=== PATIENT | female | born 1950 | race Caucasian/White ===

== ENCOUNTER 2017-12-16 19:54 | Emergency (ER) | payer MEDICARE, OTHER ==
[2017-12-16] MEDS ORDERED: ALBUTEROL NEBULIZED 2.5 MG/3 ML INHALATION STA (19:56)
[2017-12-16] MEDS ORDERED: methylPREDNISolone SOD SUCCI 125 MG/2 ML VIAL IV STA (19:56)
[2017-12-16] MEDS ORDERED: IPRATROPIUM 0.5 MG/2.5 ML NEBU INHALATION STA (19:56)
[2017-12-16 20:37] LABS: D-Dimer 0.59 mg/L FEU (<0.60)
[2017-12-16 20:38] VITALS: RESP 18
[2017-12-16 20:39] LABS: ALT 35 U/L (9-52); AST 31 U/L (14-36); Albumin 4.1 g/dL (3.5-5.0); Alkaline Phosphatase 120 U/L (38-126); Anion Gap 13 mmol/L; Blood Urea Nitrogen 14 mg/dL (7-17); Calcium 9.3 mg/dL (8.4-10.2); Carbon Dioxide 23 mmol/L (22-30); Chloride 106 mmol/L (98-107); Glucose 119 mg/dL (74-99); Magnesium 1.9 mg/dL (1.6-2.3); Potassium 4.2 mmol/L (3.5-5.1); Sodium 142 mmol/L (137-145); Total Bilirubin 0.2 mg/dL (0.2-1.3); Total Protein 7.2 g/dL (6.3-8.2)
[2017-12-16 20:40] LABS: Basophils # (A) 0.1 k/uL (0-0.2); Basophils % (A) 1 %; Eosinophils # (A) 0.4 k/uL (0-0.7); Eosinophils % (A) 3 %; HCT 42.2 % (34.0-46.0); Lymphocytes % (A) 41 %; MCH 31.2 pg (25.0-35.0); MCHC 33.2 g/dL (31.0-37.0); Mean Platelet Volume 7.2; Monocytes # (A) 0.7 k/uL (0-1.0); Monocytes % (A) 5 %; Neutrophils # (A) 6.1 k/uL (1.3-7.7); Neutrophils % (A) 47 %; Platelet Count 367 k/uL (150-450); RBC 4.49 m/uL (3.80-5.40); RDW 13.1 % (11.5-15.5)
--- NOTE | 2017-12-16 20:40 | ED ---
General Adult HPI - General Chief complaint: Shortness of Breath Stated complaint: DAVID Time Seen by Provider: 12/16/17 19:55 Source: patient, EMS, RN notes reviewed Mode of arrival: EMS Limitations: no limitations - History of Present Illness Initial comments: 66-year-old female presents for evaluation of dyspnea. Patient has history of COPD, she takes nebulized albuterol twice daily. States she missed her normal evening dose, began to feel very short of breath and called EMS. Patient has additional past medical history of CAD status post CABG. Denies any chest pain with her dyspnea. Patient's symptoms progressed rapidly. No history DVT or PE. Patient's breathing has improved with DuoNeb given by EMS during transport. Denies fever but states she's had some chills. States she has a baseline cough which is sometimes productive, this is unchanged. No abdominal pain nausea vomiting. - Related Data Home Medications Medication Instructions Recorded Confirmed Atenolol [Tenormin] 50 mg PO QAM 04/24/15 12/16/17 Budesonide/Formoterol Fumarate 1 - 2 puff INHALATION RT-BID PRN 12/16/17 [Symbicort 160-4.5 Mcg Inhaler] FLUoxetine HCL [PROzac] 40 mg PO DAILY 12/16/17 12/16/17 Ipratropium-Albuterol Nebulize 3 ml INHALATION RT-BID 12/16/17 12/16/17 [Duoneb 0.5 mg-3 mg/3 ml Soln] Levothyroxine Sodium [Synthroid] 125 mcg PO DAILY 12/16/17 12/16/17 Umeclidinium [place] [Incruse 1 puff INHALATION RT-DAILY 12/16/17 12/16/17 Ellipta] Previous Rx's Medication Instructions Recorded Azithromycin [Zithromax Z-pack] 0 mg PO DIRECTED #6 tab 12/16/17 predniSONE 50 mg PO DAILY #5 tab 12/16/17 Allergies Allergy/AdvReac Type Severity Reaction Status Date / Time No Known Allergies Allergy Verified 12/16/17 21:00 Review of Systems ROS Statement: Those systems with pertinent positive or pertinent negative responses have been documented in the HPI. ROS Other: All systems not noted in ROS Statement are negative. Past Medical History Past Medical History: Asthma, GERD/Reflux, Hyperlipidemia, Hypertension, Myocardial Infarction ([place]), Sleep Apnea/CPAP/BIPAP, Thyroid Disorder Additional Past Medical History / Comment(s): [place] X 3. NO TX FOR SLEEP APNEA. KIDNEY STONES. Last Myocardial Infarction Date:: 1997 History of Any Multi-Drug Resistant Organisms: None Reported Past Surgical History: Cholecystectomy, Coronary Bypass/CABG, Heart Catheterization, Hysterectomy Additional Past Surgical History / Comment(s): COLONOSCOPY. EGD. Past Anesthesia/Blood Transfusion Reactions: No Reported Reaction Past Psychological History: Anxiety Smoking Status: Current every day smoker Past Alcohol Use History: Rare Past Drug Use History: None Reported - Past Family History Mother Family Medical History: Deep Vein Thrombosis (DVT), Myocardial Infarction ([place]) Father Family Medical History: Myocardial Infarction ([place]) General Exam Limitations: no limitations General appearance: alert, in no apparent distress Head exam: Present: atraumatic, normocephalic Eye exam: Present: normal appearance, PERRL ENT exam: Present: normal exam Neck exam: Present: normal inspection. Absent: tenderness, meningismus Respiratory exam: Present: respiratory distress (mild), wheezes, prolonged expiratory. Absent: rales Cardiovascular Exam: Present: regular rate, normal rhythm GI/Abdominal exam: Present: soft. Absent: distended, tenderness External exam: Present: normal external exam Extremities exam: Present: normal inspection, normal capillary refill. Absent: pedal edema Back exam: Present: normal inspection. Absent: full ROM, tenderness Neurological exam: Present: alert, oriented X3, CN II-XII intact. Absent: motor sensory deficit Psychiatric exam: Present: normal affect, normal mood Skin exam: Present: warm, dry, intact. Absent: cyanosis, diaphoretic Course Vital Signs 12/16/17 12/16/17 12/16/17 19:55 20:10 20:37 Temperature 98.2 F Pulse Rate 98 89 Respiratory 20 20 18 Rate Blood Pressure 129/82 O2 Sat by Pulse 99 Oximetry 12/16/17 12/16/17 21:07 21:17 Temperature Pulse Rate 91 99 Respiratory 18 18 Rate Blood Pressure 129/87 O2 Sat by Pulse 98 Oximetry - Reevaluation(s) Reevaluation #1: 12/16/17 21:31 On reevaluation, has improved aeration, she has persistent wheezing throughout. EKG Findings - EKG Comments: EKG Findings:: EKG shows sinus rhythm at rate of 93, GA interval 18, QRS duration 76, QTC 455, there is no definitive signs of ischemia although there is a great deal of artifact. Medical Decision Making - Medical Decision Making 66-year-old female history COPD presenting with cough and dyspnea. Patient's exam consistent with COPD, wheezing throughout with prolonged expiratory phase. Patient receives DuoNeb by EMS, albuterol and Atrovent in the emergency department on reevaluation her breathing has improved, she has continued wheezing. She is given Solu-Medrol and started on prednisone. Laboratory studies revealed mild elevated white blood cell count 13.0, hemoglobin 14.0 which is normal d-dimer is negative troponin negative electrolytes within normal limits chest x-ray negative for focal pneumonia. Patient is encouraged to stay for observation, she declines, she wishes to go home. She will take her nebulized albuterol at home. She will return with any worsening dyspnea or development of chest pain. She is prescribed prednisone and azithromycin for COPD exacerbation. She is also given pulmonology follow-up. Return to emergency department with worsening symptoms. - Lab Data Result diagrams: 12/16/17 20:05 12/16/17 20:05 Lab Results 12/16/17 12/16/17 12/16/17 Range/Units 20:05 20:05 20:05 WBC 13.0 H (3.8-10.6) k/uL RBC 4.49 (3.80-5.40) m/uL Hgb 14.0 (11.4-16.0) gm/dL Hct 42.2 (34.0-46.0) % MCV 94.0 (80.0-100.0) fL MCH 31.2 (25.0-35.0) pg MCHC 33.2 (31.0-37.0) g/dL RDW 13.1 (11.5-15.5) % Plt Count 367 (150-450) k/uL Neutrophils % 47 % Lymphocytes % 41 % Monocytes % 5 % Eosinophils % 3 % Basophils % 1 % Neutrophils # 6.1 (1.3-7.7) k/uL Lymphocytes # 5.3 H (1.0-4.8) k/uL Monocytes # 0.7 (0-1.0) k/uL Eosinophils # 0.4 (0-0.7) k/uL Basophils # 0.1 (0-0.2) k/uL Polychromasia Present PT (9.0-12.0) sec INR (<1.2) APTT (22.0-30.0) sec D-Dimer (<0.60) mg/L FEU Sodium 142 (137-145) mmol/L Potassium 4.2 (3.5-5.1) mmol/L Chloride 106 (98-107) mmol/L Carbon Dioxide 23 (22-30) mmol/L Anion Gap 13 mmol/L BUN 14 (7-17) mg/dL Creatinine 0.70 (0.52-1.04) mg/dL Est GFR (MDRD) Af Amer >60 (>60 ml/min/1.73 sqM) Est GFR (MDRD) Non-Af >60 (>60 ml/min/1.73 sqM) Glucose 119 H (74-99) mg/dL Plasma Lactic Acid Justus (0.7-2.0) mmol/L Calcium 9.3 (8.4-10.2) mg/dL Magnesium 1.9 (1.6-2.3) mg/dL Total Bilirubin 0.2 (0.2-1.3) mg/dL AST 31 (14-36) U/L ALT 35 (9-52) U/L Alkaline Phosphatase 120 (38-126) U/L Total Creatine Kinase 85 (30-135) U/L CK-MB (CK-2) 0.7 (0.0-2.4) ng/mL CK-MB (CK-2) Rel Index 0.8 Troponin I <0.012 (0.000-0.034) ng/mL Total Protein 7.2 (6.3-8.2) g/dL Albumin 4.1 (3.5-5.0) g/dL 12/16/17 12/16/17 Range/Units 20:05 20:20 WBC (3.8-10.6) k/uL RBC (3.80-5.40) m/uL Hgb (11.4-16.0) gm/dL Hct (34.0-46.0) % MCV (80.0-100.0) fL MCH (25.0-35.0) pg MCHC (31.0-37.0) g/dL RDW (11.5-15.5) % Plt Count (150-450) k/uL Neutrophils % % Lymphocytes % % Monocytes % % Eosinophils % % Basophils % % Neutrophils # (1.3-7.7) k/uL Lymphocytes # (1.0-4.8) k/uL Monocytes # (0-1.0) k/uL Eosinophils # (0-0.7) k/uL Basophils # (0-0.2) k/uL Polychromasia PT 9.6 (9.0-12.0) sec INR 1.0 (<1.2) APTT 23.4 (22.0-30.0) sec D-Dimer 0.59 (<0.60) mg/L FEU Sodium (137-145) mmol/L Potassium (3.5-5.1) mmol/L Chloride (98-107) mmol/L Carbon Dioxide (22-30) mmol/L Anion Gap mmol/L BUN (7-17) mg/dL Creatinine (0.52-1.04) mg/dL Est GFR (MDRD) Af Amer (>60 ml/min/1.73 sqM) Est GFR (MDRD) Non-Af (>60 ml/min/1.73 sqM) Glucose (74-99) mg/dL Plasma Lactic Acid Justus 1.6 (0.7-2.0) mmol/L Calcium (8.4-10.2) mg/dL Magnesium (1.6-2.3) mg/dL Total Bilirubin (0.2-1.3) mg/dL AST (14-36) U/L ALT (9-52) U/L Alkaline Phosphatase (38-126) U/L Total Creatine Kinase (30-135) U/L CK-MB (CK-2) (0.0-2.4) ng/mL CK-MB (CK-2) Rel Index Troponin I (0.000-0.034) ng/mL Total Protein (6.3-8.2) g/dL Albumin (3.5-5.0) g/dL Critical Care Time Critical Care Time: Yes Total Critical Care Time: 35 Disposition Clinical Impression: Acute exacerbation of chronic obstructive airways disease Disposition: HOME SELF-CARE Condition: Fair Instructions: COPD (Chronic Obstructive Pulmonary Disease) (ED) Additional Instructions: Please follow up with primary care physician, return with any worsening or changing symptoms. Prescriptions: Azithromycin [Zithromax Z-pack] 0 mg PO DIRECTED #6 tab predniSONE 50 mg PO DAILY #5 tab Referrals: Patricia Toribio DO [Primary Care Provider] - 1-2 days Dexter Calles MD [STAFF PHYSICIAN] - 1-2 days Time of Disposition: 21:33
[2017-12-16 20:41] LABS: Partial Thromboplastin Time 23.4 sec (22.0-30.0)
--- NOTE | 2017-12-16 20:44 | XR ---
EXAMINATION TYPE: XR chest 2V DATE OF EXAM: 12/16/2017 COMPARISON: NONE HISTORY: Short of breath TECHNIQUE: Frontal and lateral views of the chest are obtained. FINDINGS: There is no heart failure nor confluent pneumonic infiltrate. There are sternal wires. The re are chest leads. Costophrenic angles are clear. Bony thorax is intact. IMPRESSION: No active cardiopulmonary disease.
[2017-12-16 20:45] LABS: Creatine Kinase 85 U/L (30-135); Prothrombin Time 9.6 sec (9.0-12.0)
[2017-12-16 20:56] LABS: Creatine Kinase MB 0.7 ng/mL (0.0-2.4); Troponin I <0.012 ng/mL (0.000-0.034)
[2017-12-16 21:05] LABS: Lymphocytes # (A) 5.3 k/uL (1.0-4.8)
[2017-12-16 21:17] LABS: Polychromasia Present
[2017-12-16 21:50] VITALS: BP 138/74; PULSE 98; TEMP 97.4
== END 2017-12-16 21:52 | disposition home or self-care (01) ==
LOC: EC 19:54
DX: J44.1 Chronic obstructive pulmonary disease with (acute) exacerbation (principal); I10 Essential (primary) hypertension; I25.2 Old myocardial infarction; E07.9 Disorder of thyroid, unspecified; F17.200 Nicotine dependence, unspecified, uncomplicated; G47.30 Sleep apnea, unspecified; Z99.89 Dependence on other enabling machines and devices; Z95.1 Presence of aortocoronary bypass graft; Z95.5 Presence of coronary angioplasty implant and graft; Z79.899 Other long term (current) drug therapy
CPT/HCPCS: 99291 ×2; 96374 ×2; 36415; 94640; 93005; 85379; 80053; 82550; 82553; 83605; 83735; 84484; 85025; 85610; 85730; 87040; 71046; J2930

== ENCOUNTER 2018-02-26 19:11 | Inpatient (IN) | payer MEDICARE, OTHER ==
[2018-02-26] MEDS ORDERED: HEPARIN SODIUM,PORCINE 5,000 UNIT/ML 1 ML VIAL IV PRN (19:19)
[2018-02-26] MEDS ORDERED: NITROGLYCERIN-D5W PMX 50 MG in DEXTROSE/WATER 1 250ML.BAG IV ONE (19:20)
[2018-02-26] MEDS ORDERED: MORPHINE SULF 5MG/10ML VL ONE (19:24)
[2018-02-26] MEDS ORDERED: MORPHINE SULFATE/PF 10MG/10ML VL IV STA (19:31)
[2018-02-26] MEDS ORDERED: NALOXONE 0.4 MG/ML 1 ML VIAL IV PRN (19:36)
--- NOTE | 2018-02-26 19:46 | ED ---
General Adult HPI - General Chief complaint: Chest Pain Stated complaint: Chest Pain Time Seen by Provider: 02/26/18 19:16 Source: patient, EMS Mode of arrival: EMS Limitations: no limitations - History of Present Illness Initial comments: 67-year-old female presenting as a transfer from outside hospital with concern for non-ST segment elevated NM. Patient is having anterior chest pressure with nausea vomiting and diaphoresis. She does have history of open-heart surgery status post CABG approximately 20 years ago. History of COPD. Currently not on any blood thinners. Patient was transferred with nitroglycerin and heparin infusion, she received aspirin prior to transfer. Case was discussed with Dr. Perkins prior to transfer, he would like the patient evaluated emergency department for concern of progression of ischemic changes as well as ongoing pain. Patient is having 4 out of 10 chest pain at the time my evaluation. - Related Data Home Medications Medication Instructions Recorded Confirmed Atenolol [Tenormin] 50 mg PO DAILY 04/24/15 02/26/18 Levothyroxine Sodium [Synthroid] 125 mcg PO DAILY 12/16/17 02/26/18 Umeclidinium [place] [Incruse 1 puff INHALATION RT-DAILY 12/16/17 02/26/18 Ellipta] Albuterol Inhaler [Ventolin Hfa 1 - 2 puff INHALATION RT-Q6H PRN 02/26/18 Inhaler] FLUoxetine HCL [PROzac] 20 mg PO DAILY 02/26/18 02/26/18 Allergies Allergy/AdvReac Type Severity Reaction Status Date / Time No Known Allergies Allergy Verified 02/26/18 19:33 Review of Systems ROS Statement: Those systems with pertinent positive or pertinent negative responses have been documented in the HPI. ROS Other: All systems not noted in ROS Statement are negative. Past Medical History Past Medical History: Asthma, GERD/Reflux, Hyperlipidemia, Hypertension, Myocardial Infarction ([place]), Sleep Apnea/CPAP/BIPAP, Thyroid Disorder Additional Past Medical History / Comment(s): [place] X 3. NO TX FOR SLEEP APNEA. KIDNEY STONES. Last Myocardial Infarction Date:: 1997 History of Any Multi-Drug Resistant Organisms: None Reported Past Surgical History: Cholecystectomy, Coronary Bypass/CABG, Heart Catheterization, Hysterectomy Additional Past Surgical History / Comment(s): COLONOSCOPY. EGD. Past Anesthesia/Blood Transfusion Reactions: No Reported Reaction Past Psychological History: Anxiety Smoking Status: Current every day smoker Past Alcohol Use History: Rare Past Drug Use History: None Reported - Past Family History Mother Family Medical History: Deep Vein Thrombosis (DVT), Myocardial Infarction ([place]) Father Family Medical History: Myocardial Infarction ([place]) General Exam Limitations: no limitations General appearance: alert, in distress Head exam: Present: atraumatic, normocephalic Eye exam: Present: normal appearance, PERRL, EOMI ENT exam: Present: normal exam Neck exam: Present: normal inspection. Absent: tenderness, meningismus Respiratory exam: Present: rales. Absent: respiratory distress Cardiovascular Exam: Present: normal rhythm, tachycardia GI/Abdominal exam: Present: soft. Absent: distended, tenderness Extremities exam: Present: normal inspection, normal capillary refill, other ( Distal pulses intact). Absent: pedal edema Neurological exam: Present: alert, oriented X3 Psychiatric exam: Present: normal affect, normal mood Skin exam: Present: warm, diaphoretic Course Vital Signs 02/26/18 19:20 Temperature 98.3 F Pulse Rate 107 H Respiratory 20 Rate Blood Pressure 162/99 O2 Sat by Pulse 86 L Oximetry EKG Findings - EKG Comments: EKG Findings:: EKG obtained at 1915, sinus tachycardia, possible left atrial enlargement, rate of 113, [place] interval 120, QRS duration 80, QTC 488, there is depression in 3 and aVF as well as lead V3. Medical Decision Making - Medical Decision Making 67 yo female presenting with non-ST segment elevated NM. Repeat laboratory studies will be obtained. EKG does show ST segment depression. Patient will be continued on heparin and nitroglycerin. Case discussed with Dr. Perkins, given the ongoing pain, patient will be taken to the [facility] for angiography. All repeat laboratory studies are pending CT angiography report reviewed from [facility], no dissection or aneurysm. Diagnosis: NSTEMI Critical Care Time Critical Care Time: Yes Total Critical Care Time: 35 Disposition Clinical Impression: NSTEMI (non-ST elevated myocardial infarction) Disposition: ADMITTED IP TO THIS [facility] Condition: Serious Referrals: Patricia Toribio DO [Primary Care Provider] - 1-2 days Decision to Admit Reason: Admit from EC Decision Date: 02/26/18 Decision Time: 19:46
[2018-02-26 20:09] LABS: Basophils # (A) 0.1 k/uL (0-0.2); Basophils % (A) 1 %; Eosinophils # (A) 0.1 k/uL (0-0.7); Eosinophils % (A) 1 %; HCT 45.3 % (34.0-46.0); HGB 14.6 gm/dL (11.4-16.0); Lymphocytes # (A) 3.9 k/uL (1.0-4.8); Lymphocytes % (A) 18 %; MCH 29.2 pg (25.0-35.0); MCHC 32.3 g/dL (31.0-37.0); MCV 90.3 fL (80.0-100.0); Mean Platelet Volume 8.5; Monocytes # (A) 0.6 k/uL (0-1.0); Monocytes % (A) 3 %; Neutrophils # (A) 17.3 k/uL (1.3-7.7); Neutrophils % (A) 78 %; Platelet Count 451 k/uL (150-450); RBC 5.02 m/uL (3.80-5.40); RDW 13.7 % (11.5-15.5); WBC 22.1 k/uL (3.8-10.6)
[2018-02-26 20:25] LABS: ALT 105 U/L (9-52); AST 102 U/L (14-36); Albumin 4.3 g/dL (3.5-5.0); Alkaline Phosphatase 194 U/L (38-126); Anion Gap 20 mmol/L; Calcium 9.2 mg/dL (8.4-10.2); Carbon Dioxide 19 mmol/L (22-30); Chloride 105 mmol/L (98-107); Glucose 214 mg/dL (74-99); Magnesium 1.8 mg/dL (1.6-2.3); Potassium 4.2 mmol/L (3.5-5.1); Sodium 144 mmol/L (137-145); Total Bilirubin 0.4 mg/dL (0.2-1.3); Total Protein 7.7 g/dL (6.3-8.2)
[2018-02-26 20:26] LABS: Blood Urea Nitrogen 13 mg/dL (7-17)
[2018-02-26] MEDS ORDERED: LIDOCAINE 2% INJ 20 MG/ML (20 ML MDV) ONE (20:27)
[2018-02-26 20:31] LABS: INR 1.1 (<1.2); Prothrombin Time 10.4 sec (9.0-12.0)
[2018-02-26] MEDS ORDERED: SODIUM CHLORIDE 0.9% 500 ML IV ONE (20:40)
[2018-02-26] MEDS: HEPARIN SOD,PORK IN 0.45% NACL 25,000 UNIT in 0.45% NACL 1 500ML.BAG IV SCH (20:42)
[2018-02-26 20:45] LABS: Partial Thromboplastin Time 103.6 sec (22.0-30.0)
[2018-02-26 20:46] LABS: Creatine Kinase MB 23.7 ng/mL (0.0-2.4); Troponin I 2.22 ng/mL (0.000-0.034)
[2018-02-26] MEDS ORDERED: MIDAZOLAM 2 MG/2 ML VIAL ONE (20:47)
[2018-02-26] MEDS ORDERED: MIDAZOLAM 2 MG/2 ML VIAL IV ONE (20:51)
[2018-02-26] MEDS ORDERED: LIDOCAINE 2% INJ 20 MG/ML SQ ONE (20:51)
[2018-02-26] MEDS ORDERED: BIVALIRUDIN BOLUS 250 MG/50 ML IV ONE ×2 (21:20→21:25)
[2018-02-26] MEDS ORDERED: BIVALIRUDIN 250 MG in SODIUM CHLORIDE 0.9% 50 ML IV ONE ×4 (21:26)
[2018-02-26] MEDS ORDERED: CLOPIDOGREL 75 MG TAB ONE (21:27)
[2018-02-26] MEDS ORDERED: METOPROLOL TARTRATE 5 MG/5 ML VIAL IVP ONE ×2 (21:27→21:30)
[2018-02-26] MEDS ORDERED: CLOPIDOGREL 75 MG TAB PO ONE (21:39)
[2018-02-26] MEDS: NITROGLYCERIN 1000MCG/10ML SYRINGE INTRACORON ONE ×3 (21:52→22:09)
[2018-02-26] MEDS: niCARdipine Syringe (1,000 mcg/10 mL) INTRACORON ONE ×2 (21:53→21:57)
[2018-02-26] MEDS ORDERED: RX INFO: IV CONTRAST WAS GIVEN 1 EACH MISC MISCELLANE PRN (22:24)
[2018-02-26] MEDS ORDERED: ZOLPIDEM 5 MG TAB PO PRN (22:24)
[2018-02-26] MEDS ORDERED: ATROPINE SULFATE 0.1 MG/ML 10ML SYRINGE IV PRN (22:24)
[2018-02-26] MEDS ORDERED: SODIUM CHLORIDE 0.9% 1,000 ML IV SCH (22:30)
--- NOTE | 2018-02-26 22:32 | P.CRDCN ---
History of Present Illness Consult date: 02/26/18 Chief complaint: Chest pain History of present illness: This is a pleasant 67-year-old female patient with a past medical history significant for coronary artery disease and status post coronary artery bypass grafting 3 in 1995 where she received WILLSON to LAD, SVG to the circumflex , and SVG to RCA, as well as history of smoking where she quit smoking in November 2017, presented to the emergency room complaining of chest discomfort. 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 She was in her usual state of health until this morning when she started experiencing chest discomfort as a pressure across the chest. The discomfort was persistent. Initially she presented to the emergency room at [facility] where she underwent an EKG which revealed ST segment depression inferiorly with non-specific changes in the lateral leads and high lateral leads. The first set of cardiac enzymes came in to be slightly abnormal. Because of the persistent chest discomfort which subsequently was associated with sweating I decided to perform a coronary angiogram on her. The patient underwent a heart catheterization and that revealed severe triple-vessel coronary artery disease with occluded LAD, severe disease involving the left circumflex, and occluded the right coronary artery. She did have 3 bypasses with patent WILLSON to LAD, occluded SVG to left circumflex, and critical disease involving the SVG to right coronary artery. She did undergo successful stenting of the SVG to left circumflex as well as the SVG to right coronary artery with a good angiographic results. By the end of the procedure the patient was pain-free. I am going to obtain an echocardiogram was Doppler to establish her LV function. She does have significant systolic murmur on physical examination. Past Medical History Past Medical History: Asthma, GERD/Reflux, Hyperlipidemia, Hypertension, Myocardial Infarction ([place]), Sleep Apnea/CPAP/BIPAP, Thyroid Disorder Additional Past Medical History / Comment(s): [place] X 3. NO TX FOR SLEEP APNEA. KIDNEY STONES. Last Myocardial Infarction Date:: 1997 History of Any Multi-Drug Resistant Organisms: None Reported Past Surgical History: Cholecystectomy, Coronary Bypass/CABG, Heart Catheterization, Hysterectomy Additional Past Surgical History / Comment(s): COLONOSCOPY. EGD. Past Anesthesia/Blood Transfusion Reactions: No Reported Reaction Past Psychological History: Anxiety Smoking Status: Current every day smoker Past Alcohol Use History: Rare Past Drug Use History: None Reported - Past Family History Mother Family Medical History: Deep Vein Thrombosis (DVT), Myocardial Infarction ([place]) Father Family Medical History: Myocardial Infarction ([place]) Medications and Allergies Home Medications Medication Instructions Recorded Confirmed Type Atenolol [Tenormin] 50 mg PO DAILY 04/24/15 02/26/18 History Levothyroxine Sodium [Synthroid] 125 mcg PO DAILY 12/16/17 02/26/18 History Umeclidinium [place] [Incruse 1 puff INHALATION RT-DAILY 12/16/17 02/26/18 History Ellipta] Albuterol Inhaler [Ventolin Hfa 1 - 2 puff INHALATION RT-Q6H PRN 02/26/18 History Inhaler] FLUoxetine HCL [PROzac] 20 mg PO DAILY 02/26/18 02/26/18 History Allergies Allergy/AdvReac Type Severity Reaction Status Date / Time No Known Allergies Allergy Verified 02/26/18 19:33 Physical Exam Vitals: Vital Signs Temp Pulse Resp BP Pulse Ox 02/26/18 20:26 94 16 119/74 93 L 02/26/18 19:56 98 16 145/91 93 L 02/26/18 19:36 100 17 142/92 94 L 02/26/18 19:20 98.3 F 107 H 20 162/99 86 L Intake and Output 02/26/18 02/26/18 02/26/18 06:59 14:59 22:59 Intake Total 227.89 Balance 227.89 Intake: IV 227.69 Intake, IV Titration 0.2 Amount Nitroglycerin-D5w Pmx 50 0.2 mg In Dextrose/Water 1 250ml.bag @ 20 MCG/MIN 6 mls/hr IV .Q24H ONE Rx#: [id number] Other: Weight 61.235 kg - Constitutional General appearance: no acute distress - Respiratory Respiratory: bilateral: CTA - Cardiovascular Rhythm: regular Heart sounds: normal: S1, S2 Abnormal Heart Sounds: systolic murmur Results 02/26/18 19:49 02/26/18 19:49 Cardiac Enzymes 02/26/18 02/26/18 Range/Units 19:49 19:49 AST 102 H (14-36) U/L CK-MB (CK-2) 23.7 H* (0.0-2.4) ng/mL Troponin I 2.220 H* (0.000-0.034) ng/mL Coagulation 02/26/18 Range/Units 19:49 PT 10.4 (9.0-12.0) sec APTT 103.6 H* (22.0-30.0) sec CBC 02/26/18 Range/Units 19:49 WBC 22.1 H (3.8-10.6) k/uL RBC 5.02 (3.80-5.40) m/uL Hgb 14.6 (11.4-16.0) gm/dL Hct 45.3 (34.0-46.0) % Plt Count 451 H (150-450) k/uL Comprehensive Metabolic Panel 02/26/18 Range/Units 19:49 Sodium 144 (137-145) mmol/L Potassium 4.2 (3.5-5.1) mmol/L Chloride 105 (98-107) mmol/L Carbon Dioxide 19 L (22-30) mmol/L BUN 13 (7-17) mg/dL Creatinine 0.70 (0.52-1.04) mg/dL Glucose 214 H (74-99) mg/dL Calcium 9.2 (8.4-10.2) mg/dL AST 102 H (14-36) U/L ALT 105 H (9-52) U/L Alkaline Phosphatase 194 H (38-126) U/L Total Protein 7.7 (6.3-8.2) g/dL Albumin 4.3 (3.5-5.0) g/dL Current Medications Generic Name Dose Route Start Last Admin Trade Name Freq PRN Reason Stop Dose Admin Heparin Sodium (Porcine) 0 unit 02/26/18 19:19 Heparin IV PER PROTOCOL PRN Low PTT Protocol Heparin Sodium/Sodium Chloride 500 mls @ 14.69 mls/hr 02/26/18 19:30 20:42 25,000 unit/ Sodium Chloride IV 12 units/kg/hr .Q24H FRANCESCO 14.69 mls/hr Protocol Administration 12 UNITS/KG/HR Nitroglycerin/Dextrose 50 mg/ 250 mls @ 6 mls/hr 02/26/18 19:20 02/26/18 19: 54 IV Solution IV 02/27/18 19:19 25 mcg/min .Q24H ONE 7.5 mls/hr Protocol Titration 20 MCG/MIN Naloxone HCl 0.2 mg 02/26/18 19:36 Narcan IV Q2M PRN Opioid Reversal Intake and Output 02/26/18 02/26/18 02/26/18 06:59 14:59 22:59 Intake Total 227.89 Balance 227.89 Intake: IV 227.69 Intake, IV Titration 0.2 Amount Nitroglycerin-D5w Pmx 50 0.2 mg In Dextrose/Water 1 250ml.bag @ 20 MCG/MIN 6 mls/hr IV .Q24H ONE Rx#: [id number] Other: Weight 61.235 kg Patient Weight 02/27/18 06:59 Weight 61.235 kg 02/26/18 19:49 02/26/18 19:49 Assessment and Plan Assessment: Assessment #1 acute non-ST elevation myocardial infarction #2 severe triple-vessel CAD and status post CABG 3 as described above #3 valvular heart disease #4 history of smoking and the patient currently abstinent from smoking. #5 hypertension #6 dyslipidemia Plan #1 the patient did undergo stenting of the SVG to left circumflex and stenting of the SVG to right coronary artery with a good angiographic results. #2 she does need to have stenting of the [place]on left circumflex down the line as well. #3 dual antiplatelet therapy along with high-dose statin #4 blood pressure control using beta ryley and SHIRIN inhibitor #5 echocardiogram was Doppler #6 follow up with the patient. Thank you for allowing us participate in her care and we'll continue following up with the patient
--- NOTE | 2018-02-26 23:35 | CC ---
CARDIAC CATHETERIZATION REPORT DATE OF SERVICE: February 26, 2018 PERFORMING PHYSICIAN: Rudolph Perkins MD, automated access systems technician. PROCEDURE PERFORMED: 1. Selective left and right coronary angiogram. 2. SVG to left circumflex angiogram. 3. SVG to RCA angiogram. 4. Left internal mammary artery angiogram. 5. Aortic root angiogram. 6. Successful stenting of the SVG to left circumflex using 2.75 x 12 mm Xience GIANFRANCO with good angiographic results. 7. Successful stenting of the SVG to RCA using 2.75 x 12 mm Xience GIANFRANCO with good angiographic results. 8. Successful hemostasis of the right common femoral artery using the Perclose device. 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 with chest discomfort. She did undergo coronary artery bypass grafting x3 back in 1995 where she received WILLSON to LAD, SVG to left circumflex, SVG to RCA. Beside that, she did continue to smoke till November of 2017, where she quit smoking. The workup including the EKG and cardiac enzymes were consistent with acute coronary syndrome/acute non ST elevation myocardial infarction. The patient continues to have chest discomfort and in view of that, heart catheterization was recommended. APPROACH: Right common femoral artery. COMPLICATION: None. LEVEL OF SEDATION: Moderate with sedation length of 84 minutes. PROCEDURE DESCRIPTION: After obtaining an informed consent, the patient was brought to cardiac laborer road. The right common femoral artery was cannulated using micropuncture technique, the micropuncture wire passed easily, then I placed a 6-Guyanese sheath in the right common femoral artery. After that I did perform selective left and right coronary angiogram using JL3.5 catheter. I did perform selective right coronary angiogram, using a Curtis Euceda catheter. SVG to RCA angiogram was performed using a Curtis Euceda catheter. Beside that, the SVG to left circumflex was performed using a JR4 3.5 catheters. The left internal mammary artery angiogram was performed also using the JR4 catheter. After that I did aortic root angiogram to make sure we were not missing any graft. After that I did intervene on the SVG to left circumflex and SVG to RCA. Please see a separate paragraph for that. SELECTIVE CORONARY ANGIOGRAM: 1. The left main has mild to moderate disease in the ostium. It bifurcates into the circumflex and left anterior descending artery. 2. The left circumflex is a medium caliber vessel and it is a nondominant vessel. The proximal left circumflex has eccentric lesion appeared to be in the range of 70%. After that, the left circumflex gives rise into a large OM branch which has moderate disease in the midportion and then the circ continued after that as a medium caliber vessel in the AV groove. 3. The LAD is chronically occluded by the ostium. 4. The right coronary artery is chronically occluded by the proximal portion. CORONARY ARTERY BYPASS ANGIOGRAM: 1. The SVG to left circumflex is occluded in the midportion. 2. The SVG to RCA has critical lesion appeared to be in the range of 90% in the proximal portion. 3. The WILLSON to LAD is patent. HEMODYNAMICS: AORTIC ROOT ANGIOGRAM: The aortic root angiogram was performed in the [place] projection and using a power injection. The aortic root appeared to be angiographically normal. A PCI of the of the SVG to left circumflex and SVG to RCA: Anticoagulation was initiated using Angiomax. Subsequently I took J.R. 3.5 guide and the SVG to left circumflex was engaged. A Whisper wire was used to wire that SVG and cross the tight lesion in the midportion. After that I did balloon angioplasty using 2.5 x 12 mm balloon before I deployed 2.75 x 12 mm Xience GIANFRANCO where the stent was positioned under fluoroscopy guidance and deployed under 14 atmospheres for 20 seconds. After that, I did multiple balloon angioplasty in the distal anastomosis of the SVG to left circumflex using 2.0 mm balloon. I did give the patient multiple injections of IC nicardipine, and IC nitroglycerins. The following angiogram showed reasonable angiographic results with DAVIDSON 2 flow in the SVG to RCA to left circumflex. After that, I did engage the SVG to RCA using a Clothia catheter. I did wire that SVG using a Whisper wire. After that, I did direct stenting of the lesion using 2.75 x 12 x 15 mm Xience GIANFRANCO where the stent was positioned under fluoroscopy guidance and deployed under 12 atmospheres for 20 seconds with the following angiogram showed good angiographic results. The procedure was completed without any complication. CONCLUSION: 1. Acute hhe-BC-rvrsvinde myocardial infarction with persistent chest discomfort. 2. Severe triple-vessel coronary artery disease as described above. 3. Patent WILLSON to LAD. 4. Acute occlusion of the SVG to left circumflex, which was stented as described above. 5. Critical disease involving the proximal SVG to RCA which was stented as well as described above. POSTPROCEDURE MANAGEMENT: 1. Maximize medical treatment. 2. Dual anti-platelet therapy and statin. 3. Follow up with the patient. 4. Echocardiogram. MMODL / IJN: [id number] /
[2018-02-27 06:52] LABS: Basophils # (A) 0.1 k/uL (0-0.2); Basophils % (A) 0 %; Eosinophils # (A) 0.1 k/uL (0-0.7); Eosinophils % (A) 1 %; HCT 42.4 % (34.0-46.0); HGB 13.3 gm/dL (11.4-16.0); Lymphocytes # (A) 2.4 k/uL (1.0-4.8); Lymphocytes % (A) 13 %; MCH 28.9 pg (25.0-35.0); MCHC 31.4 g/dL (31.0-37.0); MCV 92.1 fL (80.0-100.0); Mean Platelet Volume 7.6; Monocytes # (A) 0.8 k/uL (0-1.0); Monocytes % (A) 5 %; Neutrophils # (A) 14.6 k/uL (1.3-7.7); Neutrophils % (A) 80 %; Platelet Count 386 k/uL (150-450); RDW 13.9 % (11.5-15.5); WBC 18.2 k/uL (3.8-10.6)
[2018-02-27] MEDS: NITROGLYCERIN SL TABS 0.4 MG TAB SUBLINGUAL PRN ×2 (08:16→08:23)
[2018-02-27] MEDS: MAG HYDROX/AL HYDROX/SIMETH 30 ML CUP PO PRN ×2 (08:35→16:54)
[2018-02-27] MEDS ORDERED: METOPROLOL TARTRATE 25 MG TAB PO SCH (09:00)
[2018-02-27] MEDS ORDERED: LISINOPRIL 10 MG TAB PO SCH (09:00)
[2018-02-27] MEDS: ASPIRIN 325 MG TAB PO SCH (09:46)
--- NOTE | 2018-02-27 11:01 | P.PN ---
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 In view of the ongoing chest discomfort for and ischemic EKG changes I did perform a heart catheterization on her. The heart catheterization revealed severe triple-vessel coronary artery disease with occluded LAD, severe disease involving the left circumflex, and occluded RCA. Beside that she was found to have patent WILLSON to LAD,occluded SVG to left circumflex,and critical disease involving the SVG to RCA. The patient underwent successful stenting of both the SVG to left circumflex and SVG to RCA. On follow-up with her today, she did have some jaw discomfort earlier this morning. I am quite concerned about the SVG to left circumflex which was occluded and full of thrombus. The jaw discomfort seems to be improved. Beside that she is tachycardic with a heart rate around 90. I am going to increase the dose of metoprolol. Decrease the dose of lisinopril in view of the marginal blood pressure. Continue dual antiplatelet therapy along with a statin. Objective - Vital Signs Vital signs: Vital Signs Temp 98.0 F 02/27/18 03:05 Pulse 99 02/27/18 03:11 Resp 16 02/27/18 03:11 BP 105/67 02/27/18 03:05 Pulse Ox 96 02/27/18 08:43 Intake & Output 02/26/18 02/27/18 02/27/18 18:59 06:59 18:59 Intake Total 1127.89 360 Output Total 300 Balance 827.89 360 Weight 61.9 kg Intake: IV 227.69 Intake, IV Titration 600.2 Amount Nitroglycerin-D5w Pmx 50 0.2 mg In Dextrose/Water 1 250ml.bag @ 20 MCG/MIN 6 mls/hr IV .Q24H [facility] Rx#: [id number] Sodium Chloride 0.9% 1, 600 000 ml @ 100 mls/hr IV . Q10H [facility] Rx#:[id number] Oral 300 360 Output: Urine 300 Other: Voiding Method Bedpan # Voids 4 - Constitutional General appearance: Present: no acute distress - Respiratory Respiratory: bilateral: CTA - Cardiovascular Rhythm: regular Heart sounds: normal: S1, S2 - Labs CBC & Chem 7: 02/27/18 06:35 02/27/18 06:35 Labs: Abnormal Lab Results - Last 24 Hours (Table) 02/26/18 02/26/18 02/26/18 Range/Units 19:49 19:49 19:49 WBC 22.1 H (3.8-10.6) k/uL Plt Count 451 H (150-450) k/uL Neutrophils # 17.3 H (1.3-7.7) k/uL APTT (22.0-30.0) sec Carbon Dioxide 19 L (22-30) mmol/L Glucose 214 H (74-99) mg/dL AST 102 H (14-36) U/L ALT 105 H (9-52) U/L Alkaline Phosphatase 194 H (38-126) U/L Total Creatine Kinase 441 H (30-135) U/L CK-MB (CK-2) 23.7 H* (0.0-2.4) ng/mL Troponin I 2.220 H* (0.000-0.034) ng/mL 02/26/18 02/27/18 Range/Units 19:49 06:35 WBC 18.2 H (3.8-10.6) k/uL Plt Count (150-450) k/uL Neutrophils # 14.6 H (1.3-7.7) k/uL APTT 103.6 H* (22.0-30.0) sec Carbon Dioxide (22-30) mmol/L Glucose (74-99) mg/dL AST (14-36) U/L ALT (9-52) U/L Alkaline Phosphatase (38-126) U/L Total Creatine Kinase (30-135) U/L CK-MB (CK-2) (0.0-2.4) ng/mL Troponin I (0.000-0.034) ng/mL Assessment and Plan Assessment: Assessment #1 acute non-ST elevation myocardial infarction #2 severe triple-vessel CAD and status post CABG 3 as described above #3 valvular heart disease #4 history of smoking and the patient currently abstinent from smoking. #5 hypertension #6 dyslipidemia Plan #1 the patient did undergo stenting of the SVG to left circumflex and stenting of the SVG to right coronary artery with a good angiographic results. #2 she does need to have stenting of the cheesh-na left circumflex down the line as well. #3 dual antiplatelet therapy along with high-dose statin #4 increase the dose of metoprolol #5 echocardiogram was Doppler #6 follow up with the patient. Thank you for allowing us participate in her care and we'll continue following up with the patient
[2018-02-27 12:11] LABS: Appearance,Urine Clear (Clear); Bacteria,Urine Rare /hpf; Bilirubin,Urine Negative (Negative); Blood,Urine Moderate (Negative); Color,Urine Yellow; Glucose,Urine (UA) Negative (Negative); Ketones,Urine Negative (Negative); Leukocyte Esterase,Urine Negative (Negative); Mucus,Urine Rare /hpf; Nitrite,Urine Negative (Negative); PH, Urine 5.5 (5.0-8.0); Protein,Urine Trace (Negative); RBC,Urine 3 /hpf (0-5); Specific Gravity,Urine 1.037 (1.001-1.035); Urobilinogen,Urine <2.0 mg/dL (<2.0); WBC,Urine 1 /hpf (0-5)
--- NOTE | 2018-02-27 14:38 | P.HPIM ---
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 Patient described her pain as pressure-like and was associated with nausea and diaphoresis. There was no radiation. 12-lead EKG showed no acute ischemic changes. Troponin were significantly elevated. Patient was seen by cardiology last night and was taken to the Drop Worker. She underwent successful stent placement. She said that she has some chest pain this morning. Currently comfortable. Review of Systems Review of system: 14 points review of systems were obtained and were negative except to what were mentioned in the HPI. Past Medical History Past Medical History: Asthma, COPD, GERD/Reflux, Hyperlipidemia, Hypertension, Myocardial Infarction (MN), Thyroid Disorder Additional Past Medical History / Comment(s): MN X 3. KIDNEY STONES. Last Myocardial Infarction Date:: 1997 History of Any Multi-Drug Resistant Organisms: None Reported Past Surgical History: Cholecystectomy, Coronary Bypass/CABG, Heart Catheterization, Heart Catheterization With Stent, Hysterectomy Additional Past Surgical History / Comment(s): COLONOSCOPY. EGD. 2 cardiac stents placed 02/26/18. Past Anesthesia/Blood Transfusion Reactions: No Reported Reaction Date of Last Stent Placement:: 02/26/18 Past Psychological History: Anxiety Smoking Status: Former smoker Past Alcohol Use History: None Reported Past Drug Use History: None Reported - Past Family History Mother Family Medical History: Deep Vein Thrombosis (DVT), Myocardial Infarction (MN) Father Family Medical History: Myocardial Infarction (MN) Medications and Allergies Home Medications Medication Instructions Recorded Confirmed Type Atenolol [Tenormin] 50 mg PO DAILY 04/24/15 02/26/18 History Levothyroxine Sodium [Synthroid] 125 mcg PO DAILY 12/16/17 02/26/18 History Umeclidinium [place] [Incruse 1 puff INHALATION RT-DAILY 12/16/17 02/26/18 History Ellipta] Albuterol Inhaler [Ventolin Hfa 1 - 2 puff INHALATION RT-Q6H PRN 02/26/18 History Inhaler] FLUoxetine HCL [PROzac] 20 mg PO DAILY 02/26/18 02/26/18 History Allergies Allergy/AdvReac Type Severity Reaction Status Date / Time No Known Allergies Allergy Verified 02/26/18 19:33 Physical Exam Vitals: Vital Signs Temp Pulse Pulse Resp BP BP Pulse Ox 02/27/18 08:43 96 02/27/18 08:10 99.2 F 102 H 18 99/72 95 02/27/18 03:11 99 16 02/27/18 03:05 98.0 F 99 16 105/67 96 02/27/18 02:05 97 114/72 02/27/18 01:05 96 118/88 02/27/18 00:35 100 16 121/82 94 L 02/27/18 00:05 98 18 125/85 94 L 02/26/18 23:50 96 16 124/79 93 L 02/26/18 23:35 101 H 16 119/79 91 L 02/26/18 23:20 98.0 F 105 H 16 116/79 91 L 02/26/18 20:26 94 16 119/74 93 L 02/26/18 19:56 98 16 145/91 93 L 02/26/18 19:36 100 17 142/92 94 L 02/26/18 19:20 98.3 F 107 H 20 162/99 86 L Intake and Output 02/26/18 02/27/18 02/27/18 22:59 06:59 14:59 Intake Total 227.89 900 360 Output Total 300 Balance -72.11 900 360 Intake: IV 227.69 Intake, IV Titration 0.2 600 Amount Nitroglycerin-D5w Pmx 50 0.2 mg In Dextrose/Water 1 250ml.bag @ 20 MCG/MIN 6 mls/hr IV .Q24H [facility] Rx#: [id number] Sodium Chloride 0.9% 1, 600 000 ml @ 100 mls/hr IV . Q10H [facility] Rx#:[id number] Oral 300 360 Output: Urine 300 Other: Voiding Method Bedpan # Voids 4 Weight 61.235 kg 61.9 kg General: The patient is awake and alert, in no distress Eye: there is normal conjunctiva bilaterally. Neck: The neck is supple, there is no JVD. Cardiovascular: Normal S1-S2, no S3-S4, no murmurs. Respiratory: Lungs clear to auscultation bilaterally Gastrointestinal: Abdomen is soft, nontender Musculoskeletal: There is no pedal edema. Neurological:. Speech is normal. Skin: Skin is warm and dry Results CBC & Chem 7: 02/27/18 06:35 02/27/18 06:35 Labs: Abnormal Lab Results - Last 24 Hours (Table) 02/26/18 02/26/18 02/26/18 Range/Units 19:49 19:49 19:49 WBC 22.1 H (3.8-10.6) k/uL Plt Count 451 H (150-450) k/uL Neutrophils # 17.3 H (1.3-7.7) k/uL APTT (22.0-30.0) sec Carbon Dioxide 19 L (22-30) mmol/L Glucose 214 H (74-99) mg/dL AST 102 H (14-36) U/L ALT 105 H (9-52) U/L Alkaline Phosphatase 194 H (38-126) U/L Total Creatine Kinase 441 H (30-135) U/L CK-MB (CK-2) 23.7 H* (0.0-2.4) ng/mL Troponin I 2.220 H* (0.000-0.034) ng/mL Ur Specific [place] (1.001-1.035) Urine Protein (Negative) Urine Blood (Negative) Urine Bacteria (None) /hpf Urine Mucus (None) /hpf 02/26/18 02/27/18 02/27/18 Range/Units 19:49 06:35 11:50 WBC 18.2 H (3.8-10.6) k/uL Plt Count (150-450) k/uL Neutrophils # 14.6 H (1.3-7.7) k/uL APTT 103.6 H* (22.0-30.0) sec Carbon Dioxide (22-30) mmol/L Glucose (74-99) mg/dL AST (14-36) U/L ALT (9-52) U/L Alkaline Phosphatase (38-126) U/L Total Creatine Kinase (30-135) U/L CK-MB (CK-2) (0.0-2.4) ng/mL Troponin I (0.000-0.034) ng/mL Ur Specific [place] 1.037 H (1.001-1.035) Urine Protein Trace H (Negative) Urine Blood Moderate H (Negative) Urine Bacteria Rare H (None) /hpf Urine Mucus Rare H (None) /hpf Thrombosis Risk Factor Assmnt - Choose All That Apply Any of the Below Risk Factors Present?: Yes Each Factor Represents 1 point: Abnormal pulmonary function (COPD), Acute [place] Other Risk Factors: Yes Each Risk Factor Represents 2 Points: Age 61-74 years Other congenital or acquired thrombophilia - If yes, enter type in comment: No Thrombosis Risk Factor Assessment Total Risk Factor Score: 4 Thrombosis Risk Factor Assessment Level: Moderate Risk Assessment and Plan Assessment: 1. Non-ST elevation [place] status post successful stent placement 2. Severe triple vessel disease with history of CABG in 1995 3. Essential hypertension: Blood pressure well-controlled 4. Hyperlipidemia I would order a fasting lipid profile Continue optimal medical management. Telemetry monitoring. Awaiting echocardiogram. Appreciate cardiology recommendations.
[2018-02-27] MEDS: HEPARIN SOD,PORK IN 0.45% NACL 25,000 UNIT in 0.45% NACL 1 500ML.BAG IV SCH (19:45)
[2018-02-27] MEDS: CLOPIDOGREL 75 MG TAB PO SCH (19:55)
[2018-02-27] MEDS: ATORVASTATIN 80 MG TAB PO SCH (19:55)
[2018-02-28] MEDS: METOPROLOL TARTRATE 50 MG TAB PO SCH ×3 (03:05→21:30)
[2018-02-28 05:58] LABS: Basophils # (A) 0.1 k/uL (0-0.2); Basophils % (A) 0 %; Eosinophils # (A) 0.1 k/uL (0-0.7); Eosinophils % (A) 1 %; HCT 37.7 % (34.0-46.0); HGB 12.3 gm/dL (11.4-16.0); Lymphocytes # (A) 3.9 k/uL (1.0-4.8); Lymphocytes % (A) 30 %; MCH 29.6 pg (25.0-35.0); MCHC 32.7 g/dL (31.0-37.0); MCV 90.8 fL (80.0-100.0); Mean Platelet Volume 7.3; Monocytes % (A) 8 %; Neutrophils # (A) 7.5 k/uL (1.3-7.7); Neutrophils % (A) 59 %; Platelet Count 321 k/uL (150-450); RBC 4.15 m/uL (3.80-5.40); RDW 13.8 % (11.5-15.5); WBC 12.8 k/uL (3.8-10.6)
[2018-02-28 06:08] LABS: Anion Gap 7 mmol/L; Blood Urea Nitrogen 15 mg/dL (7-17); Calcium 8.7 mg/dL (8.4-10.2); Carbon Dioxide 30 mmol/L (22-30); Chloride 103 mmol/L (98-107); Cholesterol 180 mg/dL (<200); Glucose 103 mg/dL (74-99); HDL Cholesterol 33 mg/dL (40-60); LDL Cholesterol,Calculated 89 mg/dL (0-99); Potassium 4.3 mmol/L (3.5-5.1); Sodium 140 mmol/L (137-145); Triglycerides 291 mg/dL (<150)
[2018-02-28] MEDS: LEVOTHYROXINE 125 MCG TAB PO SCH (06:20)
[2018-02-28] MEDS ORDERED: LISINOPRIL 5 MG TAB PO SCH (09:00)
[2018-02-28 09:18] LABS: ALT 71 U/L (9-52); AST 122 U/L (14-36); Albumin 3.3 g/dL (3.5-5.0); Alkaline Phosphatase 135 U/L (38-126); Total Bilirubin 0.6 mg/dL (0.2-1.3); Total Protein 5.9 g/dL (6.3-8.2)
[2018-02-28] MEDS: ASPIRIN 325 MG TAB PO SCH (09:22)
[2018-02-28] MEDS: FLUoxetine HCL 20 MG CAP PO SCH (09:22)
[2018-02-28] MEDS: CLOPIDOGREL 75 MG TAB PO SCH (09:22)
[2018-02-28] MEDS: LISINOPRIL 2.5 MG TAB PO SCH (09:23)
[2018-02-28] MEDS: HEPARIN SOD,PORK IN 0.45% NACL 25,000 UNIT in 0.45% NACL 1 500ML.BAG IV SCH (11:25)
--- NOTE | 2018-02-28 11:36 | ECHOF ---
Referral Reason:nstemi MEASUREMENTS -------- HEIGHT: 157.5 cm WEIGHT: 61.7 kg BP: 89/55 IVSd: 1.2 cm (0.6 - 1.1) LVIDd: 3.4 cm (3.9 - 5.3) LVPWd: 1.2 cm (0.6 - 1.1) IVSs: 1.2 cm LVIDs: 3.0 cm LVPWs: 0.9 cm LA Diam: 3.3 cm (2.7 - 3.8) LAESV Index (A-L): 20.45 ml/m Ao Diam: 2.7 cm (2.0 - 3.7) AV Cusp: 1.2 cm (1.5 - 2.6) LA Diam: 4.1 cm (2.7 - 3.8) MV EXCURSION: 18.742 mm (> 18.000) MV EF SLOPE: 68 mm/s (70 - 150) EPSS: 0.7 cm MV E Tom: 0.77 m/s MV DecT: 175 ms MV A Tom: 0.77 m/s MV E/A Ratio: 1.00 RAP: 5.00 mmHg RVSP: 27.35 mmHg FINDINGS -------- Undetermined rhythm. This was a technically adequate study. Pt had CABG x3 1996, Stents placed 02/27/2016. There is mild concentric left ventricular hypertrophy. Overall left ventricular systolic function i s mildly impaired with, an EF between 45 - 50 %. Anterseptal Hypokinesis Septal Hypokinesis Ant erior Hypokinesis. The right ventricle is normal in size. The left atrial size is normal. Normal LA size by volume 22+/-6 ml/m2. The right atrial size is normal. The aortic valve is trileaflet, and appears structurally normal. No aortic stenosis or regurgitation. Mild mitral annular calcification present. Mild mitral regurgitation is present. Mild tricuspid regurgitation present. There is no evidence of pulmonary hypertension. The right v entricular systolic pressure, as measured by Doppler, is 27.35mmHg. There is no pulmonic regurgitation present. The aortic root size is normal. Echo free space represents a pericardial fat pad. CONCLUSIONS -------- 1. Pt had CABG x3 1996, Stents placed 02/27/2016. 2. There is mild concentric left ventricular hypertrophy. 3. Overall left ventricular systolic function is mildly impaired with, an EF between 45 - 50 %. 4. Anterseptal Hypokinesis 5. Septal Hypokinesis 6. Anterior Hypokinesis. 7. Normal LA size by volume 22+/-6 ml/m2. 8. The aortic valve is trileaflet, and appears structurally normal. No aortic stenosis or regurgitati on. 9. Mild mitral annular calcification present. 10. Mild mitral regurgitation is present. 11. Mild tricuspid regurgitation present. 12. There is no evidence of pulmonary hypertension. 13. The right ventricular systolic pressure, as measured by Doppler, is 27.35mmHg. 14. There is no pulmonic regurgitation present. 15. The aortic root size is normal. 16. Echo free space represents a pericardial fat pad. RESEARCH SCHOLAR: Анна Sykes RDCS
--- NOTE | 2018-02-28 11:42 | P.PN ---
Subjective Progress Note Date: 02/28/18 Principal diagnosis: Non-STEMI This is a 67-year-old female with history of coronary artery disease and prior bypass surgery, nicotine dependence, hypertension, hyperlipidemia, asthma, sleep apnea, hypothyroidism, who presented to the hospital with a non-Q- wave myocardial infarction. She initially presented to [facility] and was transferred here. Patient was having persistent chest discomfort and for this reason she was taken to the cardiac catheterization lab by Dr. Smlal. Cardiac catheterization revealed severe triple-vessel coronary artery disease with occluded LAD, severe disease involving the left circumflex, and occluded right coronary artery. She did have 3 bypasses with a patent WILLSON to the LAD, occluded saphenous vein graft to the left circumflex, and critical disease involving the SVG to the right coronary artery. Patient underwent successful stenting of the SVG to the circumflex as well as the SVG to the right coronary artery with good angiographic results. She was seen and examined this morning, denies any chest pain, no jaw discomfort, she does complain of diaphoresis and occasional palpitations. An EKG performed this morning showed a normal sinus rhythm with significant T-wave inversion in leads V3 to V6. She has been up ambulating with cardiac rehab this morning, asymptomatic. An echocardiogram with Doppler study has also been performed which is yet pending. Blood pressure 114/57 heart rate in the 90s and low 100s, 92% on room air. We would recommend at this time to continue beta ryley at 50 mg twice a day. We will decrease the dose of SHIRIN inhibitor to 2-1/2 mg daily. Objective - Vital Signs Vital signs: Vital Signs Temp 98.3 F 02/28/18 11:23 Pulse 75 02/28/18 11:23 Resp 16 02/28/18 11:23 BP 93/54 02/28/18 11:23 Pulse Ox 97 02/28/18 11:23 Intake & Output 02/27/18 02/28/18 02/28/18 18:59 06:59 18:59 Intake Total 720 360 Balance 720 360 Weight 62 kg Intake: Oral 720 360 Other: Voiding Method Toilet # Voids 2 1 - Exam PHYSICAL EXAMINATION: HEENT: Head is atraumatic, normocephalic. Pupils equal, round. Neck is supple. There is no elevated jugular venous pressure. HEART EXAMINATION: Heart S1, S2 normal. No murmur or gallop heard. CHEST EXAMINATION: Lungs are clear to auscultation and precussion. No chest wall tenderness is noted on palpation or with deep breathing. ABDOMEN: Soft, nontender. Bowel sounds are heard. No organomegaly noted. Right groin soft, no evidence of any hematoma. EXTREMITIES: 2+ peripheral pulses with no evidence of peripheral edema and no calf tenderness noted. NEUROLOGIC patient is awake, alert and oriented -3. . - Labs CBC & Chem 7: 02/28/18 05:21 02/28/18 05:21 Labs: Abnormal Lab Results - Last 24 Hours (Table) 02/27/18 02/28/18 02/28/18 Range/Units 11:50 05:21 05:21 WBC 12.8 H (3.8-10.6) k/uL Glucose 103 H (74-99) mg/dL AST 122 H (14-36) U/L ALT 71 H (9-52) U/L Alkaline Phosphatase 135 H (38-126) U/L Troponin I (0.000-0.034) ng/mL Total Protein 5.9 L (6.3-8.2) g/dL Albumin 3.3 L (3.5-5.0) g/dL Triglycerides 291 H (<150) mg/dL HDL Cholesterol 33 L (40-60) mg/dL Ur Specific [place] 1.037 H (1.001-1.035) Urine Protein Trace H (Negative) Urine Blood Moderate H (Negative) Urine Bacteria Rare H (None) /hpf Urine Mucus Rare H (None) /hpf 02/28/18 Range/Units 05:21 WBC (3.8-10.6) k/uL Glucose (74-99) mg/dL AST (14-36) U/L ALT (9-52) U/L Alkaline Phosphatase (38-126) U/L Troponin I 16.600 H* (0.000-0.034) ng/mL Total Protein (6.3-8.2) g/dL Albumin (3.5-5.0) g/dL Triglycerides (<150) mg/dL HDL Cholesterol (40-60) mg/dL Ur Specific [place] (1.001-1.035) Urine Protein (Negative) Urine Blood (Negative) Urine Bacteria (None) /hpf Urine Mucus (None) /hpf Microbiology - Last 24 Hours (Table) 02/27/18 11:50 Urine Culture - Final Urine,Clean Catch Assessment and Plan Plan: Assessment and plan #1 acute non-ST elevation myocardial infarction status post stenting of the SVG to the left circumflex and stenting of the SVG to the right coronary artery with good angiographic results. #2 severe triple-vessel coronary artery disease status post bypass surgery #3 valvular heart disease #4 nicotine dependence history #5 hypertension #6 hyperlipidemia Plan We will continue dual antiplatelet therapy along with current dose of 8 of ryley, continue statin. Decrease SHIRIN inhibitor to 2.5 mg daily. Review echocardiogram with Doppler study. Patient has been advised to be up ambulating in hallway, she's also been advised that should she experience any anginal symptoms that she needs to let the nurse know. We will continue to follow. DNP note has been reviewed, I agree with a documented findings and plan of care. Patient was seen and examined.
[2018-02-28] MEDS ORDERED: IPRATROPIUM-ALBUTEROL 3 ML NEB INHALATION PRN (11:53)
[2018-02-28] MEDS: IPRATROPIUM-ALBUTEROL 3 ML NEB INHALATION SCH ×3 (12:04→20:43)
--- NOTE | 2018-02-28 12:24 | P.PN ---
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 Patient described her pain as pressure-like and was associated with nausea and diaphoresis. There was no radiation. 12-lead EKG showed no acute ischemic changes. Troponin were significantly elevated. Patient was seen by cardiology last night and was taken to the [employer]. She underwent successful stent placement. She said that she has some chest pain this morning. Currently comfortable. 02/28/2018 patient had some heart palpitations and diaphoresis earlier this morning. Cardiology was notified. EKG had shown normal sinus rhythm with T- wave inversion in leads V3 to V6 according to cardiology. Cardiology is also aware of the elevated troponin Patient denies any chest pain or shortness of breath. She is complaining of a productive cough that started yesterday. Chest x-ray and updraft treatments have been started. Patient inhalers had not been restarted on admission. Patient also had evidence of elevated LFTs on admission. She has a history of a cholecystectomy. Denies chest pressures breath. Denies any nausea or vomiting. Denies abdominal pain. Denies any bowel movement changes or urinary symptoms. Patient also is having some hypotension cardiology has decreased her lisinopril. Objective - Vital Signs Vital signs: Vital Signs Temp 98.3 F 02/28/18 11:23 Pulse 75 02/28/18 11:23 Resp 16 02/28/18 11:23 BP 93/54 02/28/18 11:23 Pulse Ox 97 02/28/18 11:23 Intake & Output 02/27/18 02/28/18 02/28/18 18:59 06:59 18:59 Intake Total 720 360 Balance 720 360 Weight 62 kg Intake: Oral 720 360 Other: Voiding Method Toilet # Voids 2 1 - Exam Head normocephalic Neck supple Lungs clear to auscultation bilaterally no wheezing or crackles Heart regular rate and rhythm S1-S2, no rub or gallop Abdomen is soft mild tenderness with palpation of right upper quadrant nondistended positive bowel sounds no hepatosplenomegaly Extremities no edema Neuro alert and orientated to 3 - Labs CBC & Chem 7: 02/28/18 05:21 02/28/18 05:21 Labs: Abnormal Lab Results - Last 24 Hours (Table) 02/28/18 02/28/18 02/28/18 Range/Units 05:21 05:21 05:21 WBC 12.8 H (3.8-10.6) k/uL Glucose 103 H (74-99) mg/dL AST 122 H (14-36) U/L ALT 71 H (9-52) U/L Alkaline Phosphatase 135 H (38-126) U/L Troponin I 16.600 H* (0.000-0.034) ng/mL Total Protein 5.9 L (6.3-8.2) g/dL Albumin 3.3 L (3.5-5.0) g/dL Triglycerides 291 H (<150) mg/dL HDL Cholesterol 33 L (40-60) mg/dL Microbiology - Last 24 Hours (Table) 02/27/18 11:50 Urine Culture - Final Urine,Clean Catch Assessment and Plan Assessment: #1 acute non-ST elevation myocardial infarction status post stenting of the SVG to the left circumflex and stenting of the SVG to the right coronary artery with good angiographic results. Followed by cardiology. Patient is currently on aspirin and Plavix, beta ryley and statin. Cardiology has decrease the SHIRIN inhibitor to 2.5 mg daily due to hypotension. Echo results pending #2 severe triple-vessel coronary artery disease status post bypass surgery #3 productive cough: Check chest x-ray and add DuoNeb updraft treatments. Coarse breath sounds noted on lung exam. History of COPD #4 elevated LFTs. Check abdominal ultrasound. Repeat LFTs in a.m. Monitor closely since patient is on Lipitor #5 past history of nicotine dependence #6 essential hypertension #7 hyperlipidemia DVT prophylaxis subcu heparin Encourage ambulation. Anticipating discharge possibly tomorrow I performed an examination of the patient and discussed their management with the physician Air Bag Buffer. I have reviewed the Physician Air Bag Buffer's notes and agree with the documented findings and plan of care
--- NOTE | 2018-02-28 13:42 | XR ---
EXAMINATION TYPE: XR chest 2V DATE OF EXAM: 02/28/2018 COMPARISON: 02/26/2018 TECHNIQUE: PA and lateral views submitted. HISTORY: Cough FINDINGS: The lungs are clear and there is no pneumothorax, pleural effusion, or focal pneumonia. Hyperinflat ion of the lungs noted. There are subsegmental changes at the left lung base and postoperative change s. Arthropathy of the right shoulder seen. Hypertrophic and degenerative change of the spine. Promine nt density along the right cardiophrenic angle likely represents prominent cardiac fat pad or small h ernia. IMPRESSION: 1. COPD. Correlate for left basilar atelectasis versus early infiltrate..
[2018-02-28 15:21] VITALS: BMI 25.0
[2018-02-28] MEDS: HEPARIN SODIUM,PORCINE 5,000 UNIT/ML 1 ML VIAL SQ SCH (21:31)
[2018-02-28] MEDS: ATORVASTATIN 80 MG TAB PO SCH (21:31)
[2018-03-01 06:37] LABS: Basophils # (A) 0.1 k/uL (0-0.2); Basophils % (A) 1 %; Eosinophils # (A) 0.3 k/uL (0-0.7); Eosinophils % (A) 2 %; HCT 36.9 % (34.0-46.0); Lymphocytes # (A) 3.3 k/uL (1.0-4.8); Lymphocytes % (A) 32 %; MCH 29.6 pg (25.0-35.0); MCHC 32.4 g/dL (31.0-37.0); MCV 91.3 fL (80.0-100.0); Mean Platelet Volume 7.3; Monocytes # (A) 0.8 k/uL (0-1.0); Monocytes % (A) 7 %; Neutrophils # (A) 5.7 k/uL (1.3-7.7); Neutrophils % (A) 55 %; Platelet Count 333 k/uL (150-450); RBC 4.04 m/uL (3.80-5.40); RDW 13.6 % (11.5-15.5); WBC 10.4 k/uL (3.8-10.6)
[2018-03-01 06:45] LABS: ALT 49 U/L (9-52); AST 60 U/L (14-36); Albumin 3.3 g/dL (3.5-5.0); Alkaline Phosphatase 120 U/L (38-126); Anion Gap 11 mmol/L; Blood Urea Nitrogen 15 mg/dL (7-17); Calcium 8.9 mg/dL (8.4-10.2); Carbon Dioxide 25 mmol/L (22-30); Chloride 104 mmol/L (98-107); Glucose 100 mg/dL (74-99); Potassium 4.5 mmol/L (3.5-5.1); Sodium 140 mmol/L (137-145); Total Bilirubin 0.5 mg/dL (0.2-1.3); Total Protein 5.9 g/dL (6.3-8.2)
[2018-03-01] MEDS: IPRATROPIUM-ALBUTEROL 3 ML NEB INHALATION SCH ×3 (07:00→16:13)
--- NOTE | 2018-03-01 08:04 | US ---
EXAMINATION TYPE: US abdomen complete DATE OF EXAM: 03/01/2018 COMPARISON: CT CLINICAL HISTORY: elevated LFTs. Elevated LFT's EXAM MEASUREMENTS: Liver Length: 17.2 cm CBD: 0.6 cm Spleen: 7.7 cm Right Kidney: 10.4 x 3.6 x 4.4 cm Left Kidney: 9.8 x 5.5 x 4.7 cm Pancreas: wnl, tail obscured by overlying bowel gas, duct visualized Liver: Upper limits of normal for size, otherwise appeared wnl Gallbladder: Surgically absent Evidence for sonographic Cage's sign: No CBD: wnl Spleen: wnl Right Kidney: wnl Left Kidney: wnl Upper IVC: wnl Abd Aorta: 2.5 cm distal with wall calcifications The liver is homogenous. The intrahepatic portion of the IVC and proximal abdominal aorta are within normal limits. Common bile duct is unremarkable. The visualized portions of the pancreas are homog enous. The spleen is unremarkable. Kidneys are symmetric and free of hydronephrosis. No renal lesi ons are seen. IMPRESSION: 1. Unremarkable sonographic appearance and inhomogeneity of the hepatic parenchyma despite transamini tis. 2. Surgical absence of the gallbladder. 3. Atherosclerosis of the abdominal aorta.
[2018-03-01] MEDS: ASPIRIN 325 MG TAB PO SCH (08:36)
[2018-03-01] MEDS: LISINOPRIL 2.5 MG TAB PO SCH (08:37)
[2018-03-01] MEDS: FLUoxetine HCL 20 MG CAP PO SCH (08:37)
[2018-03-01] MEDS: LEVOTHYROXINE 125 MCG TAB PO SCH (08:37)
[2018-03-01] MEDS: CLOPIDOGREL 75 MG TAB PO SCH (08:37)
[2018-03-01] MEDS: HEPARIN SODIUM,PORCINE 5,000 UNIT/ML 1 ML VIAL SQ SCH (08:38)
[2018-03-01] MEDS: METOPROLOL TARTRATE 50 MG TAB PO SCH (08:38)
[2018-03-01 11:01] VITALS: RESP 18
--- NOTE | 2018-03-01 12:29 | P.PN ---
Subjective Progress Note Date: 03/01/18 Principal diagnosis: Non-STEMI This is a 67-year-old female with history of coronary artery disease and prior bypass surgery, nicotine dependence, hypertension, hyperlipidemia, asthma, sleep apnea, hypothyroidism, who presented to the hospital with a non-Q- wave myocardial infarction. She initially presented to [facility] and was transferred here. Patient was having persistent chest discomfort and for this reason she was taken to the cardiac catheterization lab by Dr. Small. Cardiac catheterization revealed severe triple-vessel coronary artery disease with occluded LAD, severe disease involving the left circumflex, and occluded right coronary artery. She did have 3 bypasses with a patent WILLSON to the LAD, occluded saphenous vein graft to the left circumflex, and critical disease involving the SVG to the right coronary artery. Patient underwent successful stenting of the SVG to the circumflex as well as the SVG to the right coronary artery with good angiographic results. She was seen and examined this morning, denies any chest pain, no jaw discomfort, she does complain of diaphoresis and occasional palpitations. An EKG performed this morning showed a normal sinus rhythm with significant T-wave inversion in leads V3 to V6. She has been up ambulating with cardiac rehab this morning, asymptomatic. An echocardiogram with Doppler study has also been performed which is yet pending. Blood pressure 114/57 heart rate in the 90s and low 100s, 92% on room air. We would recommend at this time to continue beta ryley at 50 mg twice a day. We will decrease the dose of SHIRIN inhibitor to 2-1/2 mg daily. 03/01/2018 Patient was seen and examined this morning, feels well, denies any chest pain, no chest discomfort, no difficulty in breathing. She has been up ambulating in the hallway without any difficulty today. Blood pressure 128/60 with a heart rate in the 70s to 80s. White blood cell count 10.4, hemoglobin 12.0, platelet count 333, sodium 140, potassium 4.5, BUN 15, creatinine 0.7. Objective - Vital Signs Vital signs: Vital Signs Temp 97.1 F L 03/01/18 08:00 Pulse 76 03/01/18 11:21 Resp 18 03/01/18 08:00 BP 129/66 03/01/18 08:00 Pulse Ox 95 03/01/18 08:00 Intake & Output 02/28/18 03/01/18 03/01/18 18:59 06:59 18:59 Intake Total 1080 600 Balance 1080 600 Weight 62 kg 61.8 kg Intake: Oral 1080 600 Other: Voiding Method Toilet # Voids 3 3 1 - Exam PHYSICAL EXAMINATION: HEENT: Head is atraumatic, normocephalic. Pupils equal, round. Neck is supple. There is no elevated jugular venous pressure. HEART EXAMINATION: Heart S1, S2 normal. No murmur or gallop heard. CHEST EXAMINATION: Lungs are clear to auscultation and precussion. No chest wall tenderness is noted on palpation or with deep breathing. ABDOMEN: Soft, nontender. Bowel sounds are heard. No organomegaly noted. Right groin soft, no evidence of any hematoma. EXTREMITIES: 2+ peripheral pulses with no evidence of peripheral edema and no calf tenderness noted. NEUROLOGIC patient is awake, alert and oriented -3. . - Labs CBC & Chem 7: 03/01/18 05:35 03/01/18 05:35 Labs: Abnormal Lab Results - Last 24 Hours (Table) 03/01/18 Range/Units 05:35 Glucose 100 H (74-99) mg/dL AST 60 H (14-36) U/L Total Protein 5.9 L (6.3-8.2) g/dL Albumin 3.3 L (3.5-5.0) g/dL Microbiology - Last 24 Hours (Table) 02/27/18 11:50 Urine Culture - Final Urine,Clean Catch Assessment and Plan Plan: Assessment and plan #1 acute non-ST elevation myocardial infarction status post stenting of the SVG to the left circumflex and stenting of the SVG to the right coronary artery with good angiographic results. #2 severe triple-vessel coronary artery disease status post bypass surgery #3 valvular heart disease #4 nicotine dependence history #5 hypertension #6 hyperlipidemia Plan Patient may be able to be discharged home today from cardiology's perspective, we will make her a follow-up appointment to see Dr. Small in the office post discharge. She will be discharged home on aspirin 81 mg daily, Lipitor 80 mg daily, Plavix 75 mg daily, lisinopril 2-1/2 mg daily, metoprolol 50 mg twice a day, and sublingual nitroglycerin as needed for chest pain. DNP note has been reviewed, I agree with a documented findings and plan of care. Patient was seen and examined.
--- NOTE | 2018-03-01 14:16 | P.DS ---
Providers Date of admission: 02/26/18 19:46 Expected date of discharge: 03/01/18 Attending physician: Radha Warren Consults: 02/26/18 19:36 Consult Physician Stat Consulting Provider: Rudolph Perkins Consult Reason/Comments: NSTEMI Do you want consulting provider notified?: Already Contacted 02/26/18 22:25 Consult Physician Routine Consulting Provider: [facility] Consult Reason/Comments: Post Interventional patient Do you want consulting provider notified?: Already Contacted Primary care physician: Patricia Toribio Hospital Course: Discharge diagnosis #1 acute non-ST elevation myocardial infarction status post stenting of the SVG to the left circumflex and stenting of the SVG to the right coronary artery with good angiographic results. Followed by cardiology. Patient is currently on aspirin and Plavix, beta ryley and statin. Cardiology has decrease the SHIRIN inhibitor to 2.5 mg daily due to hypotension. Echo shows an EF of 45-50% anterior septal, septal, and anterior hypokinesis #2 severe triple-vessel coronary artery disease status post bypass surgery #3 mild acute COPD exacerbation: Restart patient's nebulizer treatments. Chest x-ray shows COPD. And to correlate for left basilar atelectasis versus early infiltrate. Patient's cough and wheezing have improved with the nebulizer treatment. White count has normalized without antibiotics and she remains afebrile. Encouraged patient to use nebulizers scheduled regularly for the next week. Continue with her home inhalers. We'll have her follow-up with her PCP. If she notices any fever cough or worsening shortness of breath she is to present either back to the hospital or to her PCP #4 elevated LFTs likely related to patient's hypotension and poor perfusion to the liver. With improvement in blood pressures the liver enzymes have almost normalized. Abdominal ultrasound was unremarkable. 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 Patient described her pain as pressure-like and was associated with nausea and diaphoresis. There was no radiation. 12-lead EKG showed no acute ischemic changes. Troponin were significantly elevated. Patient was seen by cardiology last night and was taken to the [employer]. She underwent successful stent placement. She said that she has some chest pain this morning. Currently comfortable. Patient was diagnosed with an acute non-ST elevated myocardial infarction and underwent heart catheterization with stenting to the SVG to the left circumflex and stenting of the SVG to the right coronary artery with good angiographic results. She remains chest pain-free. Evaluated by cardiology again this morning and they have cleared her for discharge. They have written scripts for aspirin and Plavix a beta ryley and statin. Her SHIRIN inhibitor was decreased to 2.5 mg daily because she was having hypotension. Blood pressures are better this morning. Patient also had some mildly elevated LFTs which was likely related to the hypotension and poor perfusion to the liver. With improvement in the blood pressures 88 LFTs are showing improvement. It is okay for patient to continue her statin. Abdominal ultrasound was unremarkable. Patient also had a mild exacerbation of her COPD. This did improve with nebulizer treatments. As well as she does have a mild cough but she has been afebrile white count has normalized without antibiotics. And she is feeling better with the nebulizer treatments. Recommend that she continues scheduled nebulizer treatments for at least a week and then can go back to as needed. She's been encouraged to present back to the hospital if any of her symptoms were worsen. And she is medically stable for discharge. She has been cleared by cardiology for discharge. I performed an examination of the patient and discussed their management with the physician Microbiology Professor. I have reviewed the Physician Microbiology Professor's notes and agree with the documented findings and plan of care Patient Condition at Discharge: Stable Plan - Discharge Summary Discharge Rx Participant: No New Discharge Prescriptions: New Atorvastatin [Lipitor] 80 mg PO HS #30 tab Clopidogrel [Plavix] 75 mg PO DAILY #30 tab Lisinopril [Zestril] 2.5 mg PO DAILY #30 tab Metoprolol Tartrate [Lopressor] 50 mg PO BID #60 tab Nitroglycerin Sl Tabs [Nitrostat] 0.4 mg SUBLINGUAL Q5M PRN #25 tab PRN Reason: Chest Pain Aspirin 81 mg PO DAILY #30 chew Ipratropium-Albuterol Nebulize [Duoneb 0.5 mg-3 mg/3 ml Soln] 3 ml INHALATION QID PRN #1 box PRN Reason: Shortness Of Breath Continue Umeclidinium Earling [Incruse Ellipta] 1 puff INHALATION RT-DAILY Levothyroxine Sodium [Synthroid] 125 mcg PO DAILY FLUoxetine HCL [PROzac] 20 mg PO DAILY Albuterol Inhaler [Ventolin Hfa Inhaler] 1 - 2 puff INHALATION RT-Q6H PRN PRN Reason: Shortness Of Breath Discharge Medication List Levothyroxine Sodium [Synthroid] 125 mcg PO DAILY 12/16/17 [History] Umeclidinium Earling [Incruse Ellipta] 1 puff INHALATION RT-DAILY 12/16/17 [ History] Albuterol Inhaler [Ventolin Hfa Inhaler] 1 - 2 puff INHALATION RT-Q6H PRN [History] FLUoxetine HCL [PROzac] 20 mg PO DAILY 02/26/18 [History] Aspirin 81 mg PO DAILY #30 chew 03/01/18 [Rx] Atorvastatin [Lipitor] 80 mg PO HS #30 tab 03/01/18 [Rx] Clopidogrel [Plavix] 75 mg PO DAILY #30 tab 03/01/18 [Rx] Ipratropium-Albuterol Nebulize [Duoneb 0.5 mg-3 mg/3 ml Soln] 3 ml INHALATION QID PRN #1 box 03/01/18 [Rx] Lisinopril [Zestril] 2.5 mg PO DAILY #30 tab 03/01/18 [Rx] Metoprolol Tartrate [Lopressor] 50 mg PO BID #60 tab 03/01/18 [Rx] Nitroglycerin Sl Tabs [Nitrostat] 0.4 mg SUBLINGUAL Q5M PRN #25 tab 03/01/18 [Rx ] Follow up Appointment(s)/Referral(s): Rudolph Perkins MD [STAFF PHYSICIAN] - 03/08/18 3:30 pm Patricia Toribio DO [Primary Care Provider] - 03/04/18 9:30 am (With Marcus Perez NP.) Patient Instructions/Handouts: *Surgery [facility] - After Heart Catheterization - Radio Electronics Officer Instructions, Heart Healthy Diet (DC), Coronary Intravascular Stent Placement (DC) Activity/Diet/Wound Care/Special Instructions: Cleared by cardio. Diet: cardiac Activity: as tolerated Discharge Disposition: HOME SELF-CARE
[2018-03-01 15:38] VITALS: BP 106/70; PULSE 82; TEMP 97
[2018-03-02] MEDS ORDERED: ASPIRIN 81 MG PO SCH (09:00)
== END 2018-03-01 16:52 | disposition home or self-care (01) | DRG 247 ==
LOC: EC 19:11 → 6ICU 19:46 → 6SEL 22:32
PROVIDERS: ADMIT Internal Medicine; ATTEND Internal Medicine
PROC: 027135Z Dilation of Coronary Artery, Two Arteries with Two Drug-eluting Intraluminal Devices, Percutaneous Approach (ICD-10-PCS; principal; 2018-02-26 20:21)
PROC: 4A023N7 Measurement of Cardiac Sampling and Pressure, Left Heart, Percutaneous Approach (ICD-10-PCS; principal; 2018-02-26 20:21)
PROC: B2181ZZ Fluoroscopy of Left Internal Mammary Bypass Graft using Low Osmolar Contrast (ICD-10-PCS; principal; 2018-02-26 20:21)
PROC: B2131ZZ Fluoroscopy of Multiple Coronary Artery Bypass Grafts using Low Osmolar Contrast (ICD-10-PCS; principal; 2018-02-26 20:21)
PROC: B3101ZZ Fluoroscopy of Thoracic Aorta using Low Osmolar Contrast (ICD-10-PCS; principal; 2018-02-26 20:21)
DX: I21.4 Non-ST elevation (NSTEMI) myocardial infarction (principal); I95.9 Hypotension, unspecified; I25.810 Atherosclerosis of coronary artery bypass graft(s) without angina pectoris; J44.1 Chronic obstructive pulmonary disease with (acute) exacerbation; E03.9 Hypothyroidism, unspecified; E78.5 Hyperlipidemia, unspecified; F17.200 Nicotine dependence, unspecified, uncomplicated; F41.9 Anxiety disorder, unspecified; G47.30 Sleep apnea, unspecified; I10 Essential (primary) hypertension; I25.2 Old myocardial infarction; K21.9 Gastro-esophageal reflux disease without esophagitis; Z79.02 Long term (current) use of antithrombotics/antiplatelets; Z79.82 Long term (current) use of aspirin; Z79.899 Other long term (current) drug therapy; Z82.49 Family history of ischemic heart disease and other diseases of the circulatory system; Z87.442 Personal history of urinary calculi; Z90.710 Acquired absence of both cervix and uterus; Z79.890 Hormone replacement therapy; R79.89 Other specified abnormal findings of blood chemistry; I25.10 Atherosclerotic heart disease of native coronary artery without angina pectoris
CPT/HCPCS: 71046; 76700; 80053; 80061; 81001; 82550; 82553; 82565; 83735; 83880; 84484; 85025; 85610; 85730; 87086; 93005; 93306; 93455; 94640; 94760; 96365; 96374; 99291

== ENCOUNTER → 2018-12-14 | Outpatient (CLI) | payer MEDICARE, OTHER ==
--- NOTE | 2018-12-14 10:40 | CTL ---
EXAMINATION TYPE: CT Low Dose Lung DATE OF EXAM ORDERED: 12/14/2018 HISTORY: Long-term tobacco use. Lung cancer screening CT DLP: 61.[address] CTDI: 1.9 mGy Automated exposure control for dose reduction was used. SCREENING VISIT: Initial study COMPARISON: Outside CTA February 26, 2018 TECHNIQUE: Low dose computed tomography scan was performed through the chest at 1 mm thick sections a nd reconstructed images in the coronal plane at [address] DIAGNOSTIC QUALITY: Satisfactory FINDINGS: LUNG NODULES: Present, detailed below: There are scattered small nodules and nodular opacities. For reference there is 4 x 3 mm nodule posterior right lower lobe axial image 170. For reference ther e is irregular spiculated 5 x 4 mm opacity right upper lobe axial image 66. For reference in the left upper lobe there is 5 x 4 mm spiculated opacity anteriorly axial image 25. There is incidental 3 mm calcified nodule or granuloma anterior left upper lobe axial image 41. Additional scattered smaller nodules or nodular opacities under 4 mm are noted most prominent in the right upper lobe. No suspicious greater than 5 mm noncalcified nodules or masses are present. Comparison with prior CT show stable spiculated opacity right upper lobe. Largest area left apex not included in [id number]. LUNGS: COPD: Severity: Mild Fibrosis: Severity: Mild biapical Lymph nodes: None Other findings: None BILATERAL PLEURAL SPACE: Effusion: None Calcification: None Thickening: None Pneumothorax: None HEART: Heart Size: None Coronary calcification: Moderate to severe 3 vessel but post CABG changes noted. Pericardial effusion: None OTHER FINDINGS: Upper abdomen: None Bony thorax: Mild to moderate multilevel spurring and disc space narrowing. Underlying scoliosis is r edemonstrated. Supraclavicular region: None Other: Mild calcified plaque of thoracic aorta with more prominent focal concentric calcified plaque at origin of left subclavian artery is redemonstrated. IMPRESSION: Scattered small nodules measuring up to 5 mm in size. FOLLOW UP CT CHEST RECOMMENDATION: Six-month follow-up low dose lung screening CT CT LUNG RAD: Lung-Rad 3 Probably Benign
== END | disposition home or self-care (01) ==
LOC: RADCTMAIN 09:41
PROVIDERS: ATTEND Family Medicine
DX: Z12.2 Encounter for screening for malignant neoplasm of respiratory organs (principal); R91.8 Other nonspecific abnormal finding of lung field; Z87.891 Personal history of nicotine dependence

== ENCOUNTER → 2021-01-31 | Outpatient (CLI) | payer MEDICARE ==
--- NOTE | 2021-01-31 15:19 | CTL ---
EXAMINATION TYPE: CT Low Dose Lung DATE OF EXAM ORDERED: 01/31/2021 HISTORY: Long-term tobacco use. Lung cancer screening CT DLP: [address] CTDI: 1.9 mGy Automated exposure control for dose reduction was used. SCREENING VISIT: First study after baseline COMPARISON: Prior study December 14, 2018 TECHNIQUE: Low dose computed tomography scan was performed through the chest at 1 mm thick sections a nd reconstructed images in the coronal plane at [address] DIAGNOSTIC QUALITY: Satisfactory FINDINGS: LUNG NODULES: Present, detailed below: Multiple small scattered nodules redemonstrated. Reference cluster of 3 tiny nodules anterior right u pper lobe near image 66 unchanged from prior. Stable 4 to 5 mm calcified nodular granuloma left upper lobe axial image 56. Stable 6 mm scarlike opacity right upper lobe axial image 71. Smaller scattered nodules throughout the anomaly upper lungs is unchanged from prior. No new or enlarging greater than 5 mm nodules. LUNGS: COPD: Severity: Mild to moderate Fibrosis: Severity: Mild biapical Lymph nodes: No new greater than 1 cm Other findings: None RIGHT PLEURAL SPACE: Effusion: None Calcification: None Thickening: None Pneumothorax: None LEFT PLEURAL SPACE: Effusion: None Calcification: None Thickening: None Pneumothorax: None HEART: Heart Size: Normal Coronary calcification: Post CABG changes redemonstrated Pericardial effusion: None OTHER FINDINGS: Upper abdomen: None Bony thorax: Underlying scoliotic curvature, mild to moderate multilevel spurring in the spine. Disc space narrowing and endplate sclerosis at T12-L1 and T8-T9 level. Supraclavicular region: None Other: Severe focal calcified plaque at left subclavian artery origin redemonstrated. IMPRESSION: No new or enlarging nodules CT LUNG RAD AND CT CHEST RECOMMENDATION: Lung-Rad 2 Benign Appearance or Behavior: Continue annual sc reening with LDCT in 12 months. S Modifier (other clinically significant findings): None
== END ==
LOC: RADCTMAIN 14:49
PROVIDERS: ATTEND Family Medicine
DX: Z12.2 Encounter for screening for malignant neoplasm of respiratory organs (principal); Z72.0 Tobacco use
CPT/HCPCS: 71271

== ENCOUNTER 2021-06-19 08:47 | Day surgery (SDC) | payer MEDICARE ==
[2021-06-17 15:00] VITALS: BMI 25.4
[~2021-06-19 08:47] MED LIST: LACTATED RINGERS 1,000 ML IV SCH
[2021-06-19 09:15] VITALS: TEMP 96.8
[2021-06-19] MEDS ORDERED: LIDOCAINE 1% INJ 10MG/ML (20 ML MDV) ONE (09:24)
[2021-06-19] MEDS ORDERED: PROPOFOL 10 MG/ML 20 ML VIAL IV ONE (09:24)
--- NOTE | 2021-06-19 09:27 | P.GSHP ---
History of Present Illness H&P Date: 06/19/21 Chief Complaint: Dysphagia Is a 70-year-old female who presents today for EGD. She's had issues with dysphagia. Past Medical History Past Medical History: Asthma, COPD, GERD/Reflux, Hyperlipidemia, Hypertension, Myocardial Infarction (MO), Thyroid Disorder Additional Past Medical History / Comment(s): MO X 3. KIDNEY STONES., Last Myocardial Infarction Date:: 1997 History of Any Multi-Drug Resistant Organisms: None Reported Past Surgical History: Cholecystectomy, Coronary Bypass/CABG, Heart Catheterization, Heart Catheterization With Stent, Hysterectomy Additional Past Surgical History / Comment(s): COLONOSCOPY. EGD. 2 cardiac stents placed 02/26/18. Past Anesthesia/Blood Transfusion Reactions: No Reported Reaction Date of Last Stent Placement:: 02/26/18 Smoking Status: Current every day smoker - Past Family History Mother Family Medical History: Deep Vein Thrombosis (DVT), Myocardial Infarction (MO) Father Family Medical History: Cancer, Myocardial Infarction (MO) Medications and Allergies Home Medications Medication Instructions Recorded Confirmed Type Levothyroxine Sodium [Synthroid] 125 mcg PO DAILY 12/16/17 06/17/21 History Albuterol Inhaler (Mhu) [Ventolin 1 - 2 puff INHALATION RT-Q6H PRN 02/26/18 06/17/21 History Hfa Inhaler (Mhu)] FLUoxetine HCL [PROzac] 20 mg PO DAILY 02/26/18 06/17/21 History Atorvastatin [Lipitor] 80 mg PO HS #30 tab 03/01/18 06/17/21 Rx Clopidogrel [Plavix] 75 mg PO DAILY #30 tab 03/01/18 06/17/21 Rx Ipratropium-Albuterol Nebulize 3 ml INHALATION QID PRN #1 box 03/01/18 06/19/21 Rx [Duoneb 0.5 mg-3 mg/3 ml Soln] Metoprolol Tartrate [Lopressor] 50 mg PO BID #60 tab 03/01/18 06/17/21 Rx Nitroglycerin Sl Tabs [Nitrostat] 0.4 mg SUBLINGUAL Q5M PRN #25 tab 03/01/18 06/17/21 Rx Allergies Allergy/AdvReac Type Severity Reaction Status Date / Time No Known Allergies Allergy Verified 06/19/21 09:09 Surgical - Exam Vital Signs Temp Pulse Resp BP Pulse Ox 96.8 F L 89 18 140/72 97 06/19/21 09:12 06/19/21 09:12 06/19/21 09:12 06/19/21 09:12 06/19/21 09:12 - General well developed, well nourished, no distress - Eyes PERRL - ENT normal pinna - Neck no masses - Respiratory normal expansion - Cardiovascular Rhythm: regular - Abdomen Abdomen: soft, non tender Assessment and Plan Assessment: Dysphagia. We'll perform EGD.
--- NOTE | 2021-06-19 09:33 | P.OP ---
Date of Procedure: 06/19/21 Preoperative Diagnosis: Dysphagia Postoperative Diagnosis: Antral gastritis Procedure(s) Performed: EGD Anesthesia: MAC Surgeon: Kane Jewell Pathology: other Condition: stable (Antrum) Disposition: PACU Description of Procedure: The patient's placed on the endoscopy table in the lateral position. She received IV sedation. The gastroscope placed oropharynx past esophagus and stomach. Scope was then placed through the pylorus. The first and second portion of the duodenum. Normal. Scope was then brought back the antrum this. Mildly inflamed. A biopsies performed. Scope was then retroflexed and the stomach appeared normal. There was no significant hiatal hernia. The distal esophagus appeared normal. The proximal esophagus. Normal the scope was withdrawn for patient.
[2021-06-19 09:43] VITALS: RESP 16
[2021-06-19 09:51] VITALS: BP 115/73; PULSE 80
== END 2021-06-19 10:18 | disposition home or self-care (01) ==
LOC: ORWHC2ENDO 08:47
PROVIDERS: ATTEND Surgery
DX: K29.70 Gastritis, unspecified, without bleeding (principal); E78.5 Hyperlipidemia, unspecified; I10 Essential (primary) hypertension; I25.2 Old myocardial infarction; J44.9 Chronic obstructive pulmonary disease, unspecified; K21.9 Gastro-esophageal reflux disease without esophagitis; Z79.02 Long term (current) use of antithrombotics/antiplatelets; Z82.49 Family history of ischemic heart disease and other diseases of the circulatory system; Z87.442 Personal history of urinary calculi; Z95.1 Presence of aortocoronary bypass graft; Z95.5 Presence of coronary angioplasty implant and graft; Z87.891 Personal history of nicotine dependence
CPT/HCPCS: 43239; 88305; J2001; J2704

== ENCOUNTER 2021-10-24 12:09 | Emergency (ER) | payer MEDICARE ==
[2021-10-24] MEDS ORDERED: SODIUM CHLORIDE 0.9% 500 ML 500 ML IV STA (13:59)
[2021-10-24] MEDS ORDERED: IBUPROFEN 400 MG TAB PO STA (13:59)
[2021-10-24] MEDS ORDERED: ACETAMINOPHEN TAB 500 MG TAB PO STA (13:59)
[2021-10-24] MEDS ORDERED: SODIUM CHLORIDE 0.9% 50 ML IVPB ONE (14:15)
[2021-10-24] MEDS ORDERED: CASIRIVIMAB (REGN10933) (EUA) 600 MG, IMDEVIMAB (REGN10987) (EUA) 600 MG in SODIUM CHLO... IVPB ONE (14:15)
--- NOTE | 2021-10-24 14:29 | ED ---
URI HPI - General Chief Complaint: Upper Respiratory Infection Stated Complaint: weak/sob/nausea/vomiting Time Seen by Provider: 10/24/21 13:07 Source: patient, RN notes reviewed Mode of arrival: ambulatory Limitations: no limitations - History of Present Illness Initial Comments: Patient is a 70-year-old female with history of COPD, hypertension, heart disease, presenting to the emergency department with requesting monoclonal antibodies. Patient states family members have tested positive for covid over the last few days and she started having symptoms 2 days ago. She is complaining about body aches, chills, fatigue, intermittent nausea, mild cough. She denies any chest pain or shortness of breath. She does have history of COPD. She denies any abdominal pain. Patient has no further complaints. Patient is slightly febrile on arrival 100.1, 94% on room air, rest of vitals normal. - Related Data Home Medications Medication Instructions Recorded Confirmed Levothyroxine Sodium [Synthroid] 125 mcg PO DAILY 12/16/17 06/17/21 Albuterol Inhaler (Mhu) [Ventolin 1 - 2 puff INHALATION RT-Q6H PRN 02/26/18 06/17/21 Hfa Inhaler (Mhu)] FLUoxetine HCL [PROzac] 20 mg PO DAILY 02/26/18 06/17/21 Previous Rx's Medication Instructions Recorded Atorvastatin [Lipitor] 80 mg PO HS #30 tab 03/01/18 Clopidogrel [Plavix] 75 mg PO DAILY #30 tab 03/01/18 Ipratropium-Albuterol Nebulize 3 ml INHALATION QID PRN #1 box 03/01/18 [Duoneb 0.5 mg-3 mg/3 ml Soln] Metoprolol Tartrate [Lopressor] 50 mg PO BID #60 tab 03/01/18 Nitroglycerin Sl Tabs [Nitrostat] 0.4 mg SUBLINGUAL Q5M PRN #25 tab 03/01/18 predniSONE [Deltasone] 20 mg PO BID 5 Days #10 tab 10/24/21 Allergies Allergy/AdvReac Type Severity Reaction Status Date / Time No Known Allergies Allergy Verified 10/24/21 12:34 Review of Systems ROS Statement: Those systems with pertinent positive or pertinent negative responses have been documented in the HPI. ROS Other: All systems not noted in ROS Statement are negative. Past Medical History Past Medical History: Asthma, COPD, GERD/Reflux, Hyperlipidemia, Hypertension, Myocardial Infarction ([place]), Thyroid Disorder Additional Past Medical History / Comment(s): [place] X 3. KIDNEY STONES., Last Myocardial Infarction Date:: 1997 History of Any Multi-Drug Resistant Organisms: None Reported Past Surgical History: Cholecystectomy, Coronary Bypass/CABG, Heart Catheterization, Heart Catheterization With Stent, Hysterectomy Additional Past Surgical History / Comment(s): COLONOSCOPY. EGD. 2 cardiac stents placed 02/26/18. Past Anesthesia/Blood Transfusion Reactions: No Reported Reaction Date of Last Stent Placement:: 02/26/18 Past Psychological History: Anxiety Smoking Status: Current every day smoker Past Alcohol Use History: None Reported Past Drug Use History: None Reported - Past Family History Mother Family Medical History: Deep Vein Thrombosis (DVT), Myocardial Infarction ([place]) Father Family Medical History: Cancer, Myocardial Infarction ([place]) General Exam - General Exam Comments Initial Comments: GENERAL: Patient is well-developed and well-nourished. Patient is nontoxic and in no acute distress. HEAD: Atraumatic, normocephalic. EYES: Pupils equal round and reactive to light, extraocular movements intact, sclera anicteric, conjunctiva are normal. Eyelids were unremarkable. ENT: Moist mucous membranes. NECK: Normal range of motion, supple without lymphadenopathy or JVD. LUNGS: Unlabored respirations. Breath sounds clear to auscultation bilaterally and equal. No wheezes rales or rhonchi. HEART: Regular rate and rhythm without murmurs, rubs or gallops. ABDOMEN: Soft, nontender, normoactive bowel sounds. No guarding, no rebound. No masses appreciated. MUSCULOSKELETAL: Normal extremities with adequate strength and normal range of motion, no pitting or edema. No clubbing or cyanosis. NEUROLOGICAL: Patient is alert and oriented x 3. SKIN: Warm, Dry, normal turgor, no rashes or lesions noted. Limitations: no limitations Course Vital Signs 10/24/21 12:32 Temperature 100.1 F H Pulse Rate 74 Respiratory 22 Rate Blood Pressure 124/76 O2 Sat by Pulse 94 L Oximetry Medical Decision Making - Medical Decision Making Patient is a 70-year-old female with history of COPD, heart disease, presenting with cold like symptoms for 2 days. She is requesting monoclonal antibodies. She did arrive slightly febrile, gave her some Tylenol and Motrin and some fluids. Her rapid test is positive. She noted no acute distress. Patient rece ived monoclonal antibodies without any adverse side effects. I recommended continuing with her inhalers and I will prescribe a short course of steroids. Patient is agreeable to this plan of care and she is stable for discharge. - Lab Data Lab Results 10/24/21 Range/Units 12:37 Coronavirus (PCR) Detected A (Not Detectd) Disposition Clinical Impression: COVID-19 Disposition: HOME SELF-CARE Condition: Stable Instructions (If sedation given, give patient instructions): Coronavirus Disease 2019 (COVID-19) Additional Instructions: Please return to the Emergency Department if symptoms worsen or any other concerns. Alternate between Tylenol and Motrin for body aches and fever control. Take steroids as prescribed. Use inhaler for any shortness of breath. Follow-up with your primary care. Prescriptions: predniSONE [Deltasone] 20 mg PO BID 5 Days #10 tab Is patient prescribed a controlled substance at d/c from ED?: No Referrals: Patricia Toribio DO [Primary Care Provider] - 1-2 days Time of Disposition: 14:29
[2021-10-24 16:13] VITALS: BP 122/79; PULSE 70; RESP 18; TEMP 99.3
== END 2021-10-24 16:48 | disposition home or self-care (01) ==
LOC: EC 12:09
DX: U07.1 COVID-19 (principal); I10 Essential (primary) hypertension; I25.2 Old myocardial infarction; K21.9 Gastro-esophageal reflux disease without esophagitis; E78.5 Hyperlipidemia, unspecified; J44.9 Chronic obstructive pulmonary disease, unspecified; F41.9 Anxiety disorder, unspecified; F17.200 Nicotine dependence, unspecified, uncomplicated; Z79.52 Long term (current) use of systemic steroids; Z79.899 Other long term (current) drug therapy; Z79.890 Hormone replacement therapy; Z79.51 Long term (current) use of inhaled steroids
CPT/HCPCS: 87635; 99283; Q0243

== ENCOUNTER → 2022-09-16 | Outpatient (CLI) | payer MEDICARE ==
--- NOTE | 2022-09-16 14:06 | BD ---
EXAMINATION TYPE: Axial Bone Density DATE OF EXAM: 09/16/2022 COMPARISON: NONE CLINICAL HISTORY: 71 years year old Female. ICD-10 CODE: Z78.0 POST MENPAUSAL Height: 5 FT Weight: 128 FRAX RISK QUESTIONS: Alcohol (3 or more units per day): NO Family History (Parent hip fracture): NO Glucocorticoids (More than 3mos): NO (Ex: prednisone, prednisolone, methylprednisolone, dexamethasone, and hydrocortisone). History of Fracture in Adulthood: NO Secondary Osteoporosis: 1. Type 1 Diabetes: NO 2. Hyperthyroidism: NO 3. Menopause before 45: NO 4. Malnutrition: NO 5. Chronic liver disease: NO Rheumatoid Arthritis: NO Current Tobacco Use: YES RISK FACTORS HISTORY OF: Surgery to Spine/Hip(right/left)/Wrist (right/left): NO Family History of Osteoporosis: NO Active: NO Diet low in dairy products/other sources of calcium: NO Postmenopausal woman: YES Take estrogen and/or progesterone medications: NO Lost more than 2 inches in height since high school: NO Frequent falls: YES Poor Health: YES Hyperparathyroidism: NO Adrenal Insufficiency: NO MEDICATIONS: Thyroid Medications: YES Which medication: LEVOTHYROXINE How Lon YEARS Additional Medications: LEVOTHYROXINE, PROZAC, PLAVIX, METOPROLOL,LIPITOR Additional History: EXAM MEASUREMENTS: Bone mineral densitometry was performed using the [employer] System. Bone mineral density as measured about the Lumbar spine is: ----- L1-L4(G/cm2): 1.224 T Score Values are as follows: ----- L1: 1.1 ----- L2: 0.2 ----- L3: 0.2 ----- L4: -0.1 ----- L1-L4: 0.4 [facility] Bone mineral density about the R hip (g/cm2) 0.832: Bone mineral density about the L hip (g/cm2): 0.739 T Score values are as follows: -----R Neck: -1.5 -----L Neck: -2.2 -----R Total: -2.0 -----L Total: -1.9 PREV [facility] FRAX%s: The graph provided illustrates a 14.2 % chance for a major osteoporotic fx and a 4.8 % chance for the hips probability for fx in 10 years time. IMPRESSION: Osteopenia (T Score between -2.5 and -1). There is slightly increased risk of fracture and the patient may be considered for treatment. Re-Screen 2-5 years. NOTE: T-SCORE=SD OF THE YOUNG ADULT MEAN.
--- NOTE | 2022-09-17 08:25 | MM ---
Reason for Exam: Screening (asymptomatic). Last mammogram was performed 18 year(s) and 5 month(s) ago. Patient History: Menarche at age 15. Postmenopausal. Maternal unspecified had breast cancer. Risk Values: Jessica 5 year model risk: 1.1%. NCI Lifetime model risk: 3.3%. Prior Study Comparison: 07/29/1999 Bilateral Screening Mammogram, [facility]. 09/07/2000 Bilateral Screening Mammogram, [facility]. 04/02/2004 Bilateral Screening Mammogram, [place]. Tissue Density: The breast tissue is heterogeneously dense. This may lower the sensitivity of mammography. Findings: Analyzed By CAD. There is no suspicious group of microcalcifications. Asymmetry demonstrated within the retroareolar region on the right only on MLO view and in the inner retroareolar region on the left only on the cc view. Overall Assessment: Incomplete: need additional imaging evaluation, BI-RAD 0 Management: Diagnostic Mammogram of both breasts. A clinical breast exam by your physician is recommended on an annual basis and results should be correlated with mammographic findings. [facility] will attempt to contact patient to return for supplemental views and ultrasound if indicated. Electronically signed and approved by: Franki Tierney D.O.
--- NOTE | 2022-09-17 08:25 | MM ---
Reason for Exam: Screening (asymptomatic). Last mammogram was performed 18 year(s) and 5 month(s) ago. Patient History: Menarche at age 15. Postmenopausal. Maternal unspecified had breast cancer. Risk Values: Jessica 5 year model risk: 1.1%. NCI Lifetime model risk: 3.3%. Prior Study Comparison: 07/29/1999 Bilateral Screening Mammogram, [facility]. 09/07/2000 Bilateral Screening Mammogram, [facility]. 04/02/2004 Bilateral Screening Mammogram, [facility]. Tissue Density: The breast tissue is heterogeneously dense. This may lower the sensitivity of mammography. Findings: Analyzed By CAD. There is no suspicious group of microcalcifications. Asymmetry demonstrated within the retroareolar region on the right only on MLO view and in the inner retroareolar region on the left only on the cc view. Overall Assessment: Incomplete: need additional imaging evaluation, BI-RAD 0 Management: Diagnostic Mammogram of both breasts. A clinical breast exam by your physician is recommended on an annual basis and results should be correlated with mammographic findings. [facility] will attempt to contact patient to return for supplemental views and ultrasound if indicated. Electronically signed and approved by: Franki Tierney D.O.
== END | disposition home or self-care (01) ==
LOC: RADMAMWWP 12:37
PROVIDERS: ATTEND Family Medicine
DX: Z12.31 Encounter for screening mammogram for malignant neoplasm of breast (principal); M85.89 Other specified disorders of bone density and structure, multiple sites; Z78.0 Asymptomatic menopausal state
CPT/HCPCS: 77067; 77080

== ENCOUNTER → 2022-09-22 | Outpatient (CLI) | payer MEDICARE ==
--- NOTE | 2022-09-22 09:12 | MM ---
Reason for Exam: Additional evaluation requested from abnormal screening. Last screening mammogram was performed less than 1 month ago. Patient History: Menarche at age 15. First Full-Term at age 21. Postmenopausal. Maternal aunt had breast cancer at or over age 50. Risk Values: Jessica 5 year model risk: 1.4%. NCI Lifetime model risk: 4.1%. Prior Study Comparison: 09/07/2000 Bilateral Screening Mammogram, [facility]. 04/02/2004 Bilateral Screening Mammogram, [place]. 09/16/2022 Bilateral MG screening mammo w CAD, [facility]. Tissue Density: The breast tissue is heterogeneously dense. This may lower the sensitivity of mammography. Analyzed By CAD. Overall Assessment: Benign, BI-RAD 2 Management: Screening Mammogram of both breasts in 1 year. Electronically signed and approved by: Franki Tierney D.O.
== END | disposition home or self-care (01) ==
LOC: RADMAMWWP 08:36
PROVIDERS: ATTEND Family Medicine
DX: R92.8 Other abnormal and inconclusive findings on diagnostic imaging of breast (principal)
CPT/HCPCS: 77066

== ENCOUNTER → 2022-09-24 | Outpatient (CLI) | payer MEDICARE ==
--- NOTE | 2022-09-24 09:44 | CTL ---
EXAMINATION TYPE: CT Low Dose Lung DATE OF EXAM ORDERED: 09/24/2022 HISTORY: Z87.891 personal hx tobacco use . Lung cancer screening CT DLP: 62.[address] CTDI: 1.8 mGy Automated exposure control for dose reduction was used. SCREENING VISIT: Follow-up COMPARISON: CT Low Dose Lung cancer screening 01/31/2021, 12/14/2018. TECHNIQUE: Low dose computed tomography scan was performed through the chest at 1 mm thick sections a nd reconstructed images in multiple planes at 1 mm and [address] DIAGNOSTIC QUALITY: Satisfactory FINDINGS: LUNG NODULES: Multiple small scattered nodules redemonstrated. Stable 5 mm calcified nodular granuloma in the left upper lobe (series 4, image 54). Stable 6 number scarlike opacity in the right upper lobe (series 4, image 70). Smaller scattered nodules throughout the upper lung is unchanged from prior examination wi th example including a 4 mm left upper lobe nodule (series 4, image 33) and a right upper lobe nodule measuring 4 mg (series 4, image 47). No new or enlarging greater than 5 mm nodules. LUNGS: COPD: Severity: Mild to moderate Fibrosis: Severity: Mild biapical Lymph nodes: None Other findings: None RIGHT PLEURAL SPACE: Effusion: None Calcification: None Thickening: None Pneumothorax: None LEFT PLEURAL SPACE: Effusion: None Calcification: None Thickening: None Pneumothorax: None HEART: Heart Size: Normal Coronary Calcification: Post-CABG changes redemonstrated. Pericardial Effusion: None OTHER FINDINGS: Upper abdomen: Post cholecystectomy. Bony thorax: No acute osseous and amounted. Underlying slight curvature. Mild to moderate multilevel spurring of the spine. Median sternotomy wires. Supraclavicular region: None Other: Severe focal calcified plaque at left subclavian artery origin redemonstrated. IMPRESSION: Stable bilateral pulmonary nodules. No new or enlarging pulmonary nodules. CT LUNG RAD AND CT CHEST RECOMMENDATION: Lung-Rad 2 Benign Appearance or Behavior: Continue annual sc reening with LDCT in 12 months. S Modifier (other clinically significant findings): None
== END | disposition home or self-care (01) ==
LOC: RADCTMAIN 08:48
PROVIDERS: ATTEND Family Medicine
DX: Z12.2 Encounter for screening for malignant neoplasm of respiratory organs (principal); Z87.891 Personal history of nicotine dependence
CPT/HCPCS: 71271

== ENCOUNTER 2022-11-27 09:25 | Inpatient (IN) | payer MEDICARE ==
[2022-11-27] MEDS ORDERED: ACETAMINOPHEN TAB 325 MG TAB PO STA ×2 (10:04→19:41)
[2022-11-27] MEDS ORDERED: IBUPROFEN 600 MG TAB PO STA (10:04)
[2022-11-27] MEDS ORDERED: DILTIAZEM DRIP BOLUS FROM BAG 1 MG SOLN IV ONE (10:04)
--- NOTE | 2022-11-27 10:08 | ED ---
General Adult HPI - General Chief complaint: Shortness of Breath Stated complaint: SOB Time Seen by Provider: 11/27/22 09:32 Source: patient, EMS, RN notes reviewed Mode of arrival: EMS Limitations: no limitations - History of Present Illness Initial comments: Patient is a pleasant 71-year-old female presenting to the emergency department source of breath. Onset of symptoms was around 2 days ago. Comes do worsen with exertion. Patient does have history of COPD however does not feel similar to this. Patient did have an episode of palpitations, resolved. No chest pain. No leg pain or leg swelling. No fever. No cough. - Related Data Home Medications Medication Instructions Recorded Confirmed Levothyroxine Sodium [Synthroid] 125 mcg PO DAILY 12/16/17 11/27/22 Albuterol Inhaler [Ventolin Hfa 1 - 2 puff INHALATION RT-Q6H PRN 02/26/18 11/27/22 Inhaler] Aspirin EC [Ecotrin Low Dose] 81 mg PO DAILY 11/27/22 11/27/22 Budesonide/Glycopyr/Formoterol 2 puff INHALATION RT-BID 11/27/22 11/27/22 [Breztri Aerosphere Inhaler] FLUoxetine HCL [PROzac] 40 mg PO DAILY 11/27/22 11/27/22 Ipratropium-Albuterol Nebulize 3 ml INHALATION RT-QID PRN 11/27/22 11/27/22 [Duoneb 0.5 mg-3 mg/3 ml Soln] Magnesium Oxide [Magnesium] 500 mg PO HS 11/27/22 11/27/22 Multivitamins, Thera [Multivitamin 1 tab PO DAILY 11/27/22 11/27/22 (formulary)] Previous Rx's Medication Instructions Recorded Atorvastatin [Lipitor] 80 mg PO HS #30 tab 03/01/18 Clopidogrel [Plavix] 75 mg PO DAILY #30 tab 03/01/18 Metoprolol Tartrate [Lopressor] 50 mg PO BID #60 tab 03/01/18 Nitroglycerin Sl Tabs [Nitrostat] 0.4 mg SUBLINGUAL Q5M PRN #25 tab 03/01/18 Allergies Allergy/AdvReac Type Severity Reaction Status Date / Time No Known Allergies Allergy Verified 11/27/22 11:40 Review of Systems ROS Statement: Those systems with pertinent positive or pertinent negative responses have been documented in the HPI. ROS Other: All systems not noted in ROS Statement are negative. Constitutional: Denies: fever, chills Eyes: Denies: eye pain ENT: Denies: ear pain Respiratory: Reports: as per HPI, dyspnea. Denies: cough Cardiovascular: Denies: chest pain Endocrine: Reports: fatigue Gastrointestinal: Denies: abdominal pain Genitourinary: Denies: dysuria Musculoskeletal: Denies: back pain Skin: Denies: rash Neurological: Denies: weakness Past Medical History Past Medical History: COPD, Hypertension Additional Past Medical History / Comment(s): [place] X 3. KIDNEY STONES. Last Myocardial Infarction Date:: 1997 History of Any Multi-Drug Resistant Organisms: None Reported Past Surgical History: Cholecystectomy, Coronary Bypass/CABG, Heart Catheterization, Heart Catheterization With Stent, Hysterectomy Additional Past Surgical History / Comment(s): COLONOSCOPY. EGD. 2 cardiac stents placed 02/26/18. Past Anesthesia/Blood Transfusion Reactions: No Reported Reaction Date of Last Stent Placement:: 02/26/18 Past Psychological History: Anxiety, Depression Smoking Status: Current every day smoker Past Alcohol Use History: None Reported Past Drug Use History: None Reported - Past Family History Mother Family Medical History: Deep Vein Thrombosis (DVT), Myocardial Infarction ([place]) Father Family Medical History: Cancer, Myocardial Infarction ([place]) General Exam Limitations: no limitations General appearance: alert, in no apparent distress Head exam: Present: normocephalic Eye exam: Present: normal appearance Neck exam: Present: normal inspection. Absent: tenderness, meningismus Respiratory exam: Present: normal lung sounds bilaterally Cardiovascular Exam: Present: tachycardia GI/Abdominal exam: Present: soft. Absent: tenderness Extremities exam: Present: normal inspection. Absent: pedal edema, calf tenderness Neurological exam: Present: alert Psychiatric exam: Present: normal affect, normal mood Skin exam: Present: normal color Course Vital Signs 11/27/22 11/27/22 11/27/22 09:26 09:33 10:00 Temperature 101.6 F H Pulse Rate 162 H 168 H 158 H Pulse Rate [ Him Manager ] Respiratory 22 36 H 14 Rate Blood Pressure 132/80 132/80 140/104 Blood Pressure [Right Arm] O2 Sat by Pulse 91 L 95 Oximetry 11/27/22 11/27/22 11/27/22 10:30 11:00 11:30 Temperature Pulse Rate 156 H 156 H Pulse Rate [ Him Manager ] Respiratory 16 Rate Blood Pressure 132/90 132/92 105/86 Blood Pressure [Right Arm] O2 Sat by Pulse 93 L 91 L 95 Oximetry 11/27/22 11/27/22 11/27/22 11:52 12:00 12:30 Temperature 99.9 F H Pulse Rate 163 H 158 H 151 H Pulse Rate [ Him Manager ] Respiratory 24 20 21 Rate Blood Pressure 89/66 89/66 88/61 Blood Pressure [Right Arm] O2 Sat by Pulse 95 95 96 Oximetry 11/27/22 11/27/22 11/27/22 13:00 13:30 14:00 Temperature Pulse Rate 142 H 138 H 142 H Pulse Rate [ Him Manager ] Respiratory 20 18 16 Rate Blood Pressure 90/64 105/77 Blood Pressure [Right Arm] O2 Sat by Pulse 95 94 L 93 L Oximetry 11/27/22 11/27/22 11/27/22 14:26 14:28 14:30 Temperature Pulse Rate 144 H Pulse Rate [ 144 H Him Manager ] Respiratory 24 22 17 Rate Blood Pressure 106/72 Blood Pressure 106/72 [Right Arm] O2 Sat by Pulse 93 L 92 L Oximetry EKG Findings - EKG Results: EKG: interpreted by ERMD (Septal Q waves.), normal axis, normal ST/T EKG shows: tachycardia (Atrial tachycardia appearance) Medical Decision Making - Medical Decision Making Patient reevaluated. Patient has improved with IV fluids. Patient and family updated on results and plan. Case was discussed with Dr. landon, who will admit covering Dr. Dumont. He does request Tamiflu. Cardiology and pulmonary will be placed on consult. - Lab Data Result diagrams: 11/27/22 10:12 11/27/22 10:12 Lab Results 11/27/22 11/27/22 11/27/22 Range/Units 09:40 10:12 10:12 WBC 12.8 H (3.8-10.6) k/uL RBC 4.41 (3.80-5.40) m/uL Hgb 13.5 (11.4-16.0) gm/dL Hct 39.7 (34.0-46.0) % MCV 90.1 (80.0-100.0) fL MCH 30.6 (25.0-35.0) pg MCHC 34.0 (31.0-37.0) g/dL RDW 13.8 (11.5-15.5) % Plt Count 358 (150-450) k/uL MPV 7.9 Neutrophils % 73 % Lymphocytes % 16 % Monocytes % 7 % Eosinophils % 1 % Basophils % 1 % Neutrophils # 9.4 H (1.3-7.7) k/uL Lymphocytes # 2.0 (1.0-4.8) k/uL Monocytes # 0.9 (0-1.0) k/uL Eosinophils # 0.1 (0-0.7) k/uL Basophils # 0.1 (0-0.2) k/uL PT 9.8 (9.0-12.0) sec INR 0.9 (<1.2) APTT 25.1 (22.0-30.0) sec Sodium (137-145) mmol/L Potassium (3.5-5.1) mmol/L Chloride (98-107) mmol/L Carbon Dioxide (22-30) mmol/L Anion Gap mmol/L BUN (7-17) mg/dL Creatinine (0.52-1.04) mg/dL Est GFR (CKD-EPI)AfAm (>60 ml/min/1.73 sqM) Est GFR (CKD-EPI)NonAf (>60 ml/min/1.73 sqM) Glucose (74-99) mg/dL Plasma Lactic Acid Justus 2.4 H* (0.7-2.0) mmol/L Calcium (8.4-10.2) mg/dL Magnesium (1.6-2.3) mg/dL Total Bilirubin (0.2-1.3) mg/dL AST (14-36) U/L ALT (4-34) U/L Alkaline Phosphatase (38-126) U/L Troponin I (0.000-0.034) ng/mL NT-Pro-B Natriuret Pep pg/mL Total Protein (6.3-8.2) g/dL Albumin (3.5-5.0) g/dL TSH (0.465-4.680) mIU/L Free T4 (0.78-2.19) ng/dL Free T3 pg/mL (2.8-5.3) pg/ml Urine Color Urine Appearance (Clear) Urine pH (5.0-8.0) Ur Specific Garrison (1.001-1.035) Urine Protein (Negative) Urine Glucose (UA) (Negative) Urine Ketones (Negative) Urine Blood (Negative) Urine Nitrite (Negative) Urine Bilirubin (Negative) Urine Urobilinogen (<2.0) mg/dL Ur Leukocyte Esterase (Negative) Urine RBC (0-5) /hpf Urine WBC (0-5) /hpf Ur Squamous Epith Cells (0-4) /hpf Urine Mucus (None) /hpf Influenza Type A (PCR) (Not Detectd) Influenza Type B (PCR) (Not Detectd) RSV (PCR) (Not Detectd) SARS-CoV-2 (PCR) (Not Detectd) 11/27/22 11/27/22 11/27/22 Range/Units 10:12 10:12 10:12 WBC (3.8-10.6) k/uL RBC (3.80-5.40) m/uL Hgb (11.4-16.0) gm/dL Hct (34.0-46.0) % MCV (80.0-100.0) fL MCH (25.0-35.0) pg MCHC (31.0-37.0) g/dL RDW (11.5-15.5) % Plt Count (150-450) k/uL MPV Neutrophils % % Lymphocytes % % Monocytes % % Eosinophils % % Basophils % % Neutrophils # (1.3-7.7) k/uL Lymphocytes # (1.0-4.8) k/uL Monocytes # (0-1.0) k/uL Eosinophils # (0-0.7) k/uL Basophils # (0-0.2) k/uL PT (9.0-12.0) sec INR (<1.2) APTT (22.0-30.0) sec Sodium 139 (137-145) mmol/L Potassium 3.5 (3.5-5.1) mmol/L Chloride 104 (98-107) mmol/L Carbon Dioxide 28 (22-30) mmol/L Anion Gap 7 mmol/L BUN 8 (7-17) mg/dL Creatinine 0.60 (0.52-1.04) mg/dL Est GFR (CKD-EPI)AfAm >90 (>60 ml/min/1.73 sqM) Est GFR (CKD-EPI)NonAf >90 (>60 ml/min/1.73 sqM) Glucose 113 H (74-99) mg/dL Plasma Lactic Acid Justus (0.7-2.0) mmol/L Calcium 8.3 L (8.4-10.2) mg/dL Magnesium 2.0 (1.6-2.3) mg/dL Total Bilirubin 0.4 (0.2-1.3) mg/dL AST 34 (14-36) U/L ALT 32 (4-34) U/L Alkaline Phosphatase 173 H (38-126) U/L Troponin I <0.012 (0.000-0.034) ng/mL NT-Pro-B Natriuret Pep pg/mL Total Protein 6.8 (6.3-8.2) g/dL Albumin 3.8 (3.5-5.0) g/dL TSH 4.360 (0.465-4.680) mIU/L Free T4 1.36 (0.78-2.19) ng/dL Free T3 pg/mL 3.1 (2.8-5.3) pg/ml Urine Color Light Yellow Urine Appearance Clear (Clear) Urine pH 6.0 (5.0-8.0) Ur Specific Garrison 1.012 (1.001-1.035) Urine Protein Negative (Negative) Urine Glucose (UA) Negative (Negative) Urine Ketones Trace H (Negative) Urine Blood Moderate H (Negative) Urine Nitrite Negative (Negative) Urine Bilirubin Negative (Negative) Urine Urobilinogen <2.0 (<2.0) mg/dL Ur Leukocyte Esterase Negative (Negative) Urine RBC 5 (0-5) /hpf Urine WBC 1 (0-5) /hpf Ur Squamous Epith Cells 1 (0-4) /hpf Urine Mucus Rare H (None) /hpf Influenza Type A (PCR) (Not Detectd) Influenza Type B (PCR) (Not Detectd) RSV (PCR) (Not Detectd) SARS-CoV-2 (PCR) (Not Detectd) 11/27/22 11/27/22 Range/Units 10:12 10:12 WBC (3.8-10.6) k/uL RBC (3.80-5.40) m/uL Hgb (11.4-16.0) gm/dL Hct (34.0-46.0) % MCV (80.0-100.0) fL MCH (25.0-35.0) pg MCHC (31.0-37.0) g/dL RDW (11.5-15.5) % Plt Count (150-450) k/uL MPV Neutrophils % % Lymphocytes % % Monocytes % % Eosinophils % % Basophils % % Neutrophils # (1.3-7.7) k/uL Lymphocytes # (1.0-4.8) k/uL Monocytes # (0-1.0) k/uL Eosinophils # (0-0.7) k/uL Basophils # (0-0.2) k/uL PT (9.0-12.0) sec INR (<1.2) APTT (22.0-30.0) sec Sodium (137-145) mmol/L Potassium (3.5-5.1) mmol/L Chloride (98-107) mmol/L Carbon Dioxide (22-30) mmol/L Anion Gap mmol/L BUN (7-17) mg/dL Creatinine (0.52-1.04) mg/dL Est GFR (CKD-EPI)AfAm (>60 ml/min/1.73 sqM) Est GFR (CKD-EPI)NonAf (>60 ml/min/1.73 sqM) Glucose (74-99) mg/dL Plasma Lactic Acid Justus (0.7-2.0) mmol/L Calcium (8.4-10.2) mg/dL Magnesium (1.6-2.3) mg/dL Total Bilirubin (0.2-1.3) mg/dL AST (14-36) U/L ALT (4-34) U/L Alkaline Phosphatase (38-126) U/L Troponin I (0.000-0.034) ng/mL NT-Pro-B Natriuret Pep 443 pg/mL Total Protein (6.3-8.2) g/dL Albumin (3.5-5.0) g/dL TSH (0.465-4.680) mIU/L Free T4 (0.78-2.19) ng/dL Free T3 pg/mL (2.8-5.3) pg/ml Urine Color Urine Appearance (Clear) Urine pH (5.0-8.0) Ur Specific Garrison (1.001-1.035) Urine Protein (Negative) Urine Glucose (UA) (Negative) Urine Ketones (Negative) Urine Blood (Negative) Urine Nitrite (Negative) Urine Bilirubin (Negative) Urine Urobilinogen (<2.0) mg/dL Ur Leukocyte Esterase (Negative) Urine RBC (0-5) /hpf Urine WBC (0-5) /hpf Ur Squamous Epith Cells (0-4) /hpf Urine Mucus (None) /hpf Influenza Type A (PCR) Detected A (Not Detectd) Influenza Type B (PCR) Not Detected (Not Detectd) RSV (PCR) Not Detected (Not Detectd) SARS-CoV-2 (PCR) Not Detected (Not Detectd) - Radiology Data Interpreted by me: Chest x-ray shows hyperinflation, no acute process. Critical Care Time Critical Care Time: Yes Total Critical Care Time: 35 Disposition Clinical Impression: Atrial tachycardia, Influenza Disposition: ADMITTED IP TO THIS [facility] Condition: Serious Is patient prescribed a controlled substance at d/c from ED?: No Referrals: Lj Conte MD [Primary Care Provider] - 1-2 days Time of Disposition: 15:26
[2022-11-27] MEDS ORDERED: DILTIAZEM 125 MG in SODIUM CHLORIDE 0.9% 100 ML IV SCH (10:15)
--- NOTE | 2022-11-27 10:53 | XR ---
EXAMINATION TYPE: XR chest 2V DATE OF EXAM: 11/27/2022 COMPARISON: CT 09/24/2022, chest x-ray 01/09/2022 HISTORY: COPD, Covid TECHNIQUE: Frontal and lateral views of the chest are obtained. FINDINGS: Median sternotomy wires and mediastinal clips are noted. The heart is not enlarged. There is no pulmonary vascular congestion. Accounting for differences in rotation, there is no change anne red to 01/09/2022. Known tiny pulmonary nodules on CT 09/24/2022 are not appreciated. Scattered degene rative changes of the thoracic spine. IMPRESSION: No acute cardiopulmonary process.
[2022-11-27 11:12] LABS: Basophils # (A) 0.1 k/uL (0-0.2); Basophils % (A) 1 %; Eosinophils # (A) 0.1 k/uL (0-0.7); Eosinophils % (A) 1 %; HCT 39.7 % (34.0-46.0); HGB 13.5 gm/dL (11.4-16.0); Lymphocytes % (A) 16 %; MCH 30.6 pg (25.0-35.0); MCV 90.1 fL (80.0-100.0); Mean Platelet Volume 7.9; Monocytes # (A) 0.9 k/uL (0-1.0); Monocytes % (A) 7 %; Neutrophils # (A) 9.4 k/uL (1.3-7.7); Neutrophils % (A) 73 %; Platelet Count 358 k/uL (150-450); RBC 4.41 m/uL (3.80-5.40); RDW 13.8 % (11.5-15.5); WBC 12.8 k/uL (3.8-10.6)
[2022-11-27 11:26] LABS: INR 0.9 (<1.2); Partial Thromboplastin Time 25.1 sec (22.0-30.0); Prothrombin Time 9.8 sec (9.0-12.0)
[2022-11-27 11:33] LABS: ALT 32 U/L (4-34); AST 34 U/L (14-36); African American GFR (CKD) >90 (>60 ml/min/1.73 sqM); Albumin 3.8 g/dL (3.5-5.0); Alkaline Phosphatase 173 U/L (38-126); Anion Gap 7 mmol/L; Blood Urea Nitrogen 8 mg/dL (7-17); Calcium 8.3 mg/dL (8.4-10.2); Carbon Dioxide 28 mmol/L (22-30); Chloride 104 mmol/L (98-107); Glucose 113 mg/dL (74-99); Non-African American GFR(CKD) >90 (>60 ml/min/1.73 sqM); Potassium 3.5 mmol/L (3.5-5.1); Sodium 139 mmol/L (137-145); Total Bilirubin 0.4 mg/dL (0.2-1.3); Total Protein 6.8 g/dL (6.3-8.2)
[2022-11-27 11:50] LABS: T4, Free (Free Thyroxine) 1.36 ng/dL (0.78-2.19)
[2022-11-27] MEDS ORDERED: SODIUM CHLORIDE 0.9% 1,000 ML IV ONE (12:06)
[2022-11-27] MEDS ORDERED: SODIUM CHLORIDE 0.9% 1,000 ML IV STA (13:03)
[2022-11-27 13:19] LABS: Appearance,Urine Clear (Clear); Bilirubin,Urine Negative (Negative); Blood,Urine Moderate (Negative); Color,Urine Light Yellow; Glucose,Urine (UA) Negative (Negative); Ketones,Urine Trace (Negative); Leukocyte Esterase,Urine Negative (Negative); Mucus,Urine Rare /hpf; Nitrite,Urine Negative (Negative); Protein,Urine Negative (Negative); RBC,Urine 5 /hpf (0-5); Specific Gravity,Urine 1.012 (1.001-1.035); Squamous Epithelial Cell,Urine 1 /hpf (0-4); Urobilinogen,Urine <2.0 mg/dL (<2.0); WBC,Urine 1 /hpf (0-5)
[2022-11-27] MEDS ORDERED: IPRATROPIUM-ALBUTEROL 3 ML NEB INHALATION PRN (15:27)
[2022-11-27] MEDS ORDERED: NALOXONE 0.4 MG/ML 1 ML VIAL IVP PRN (15:27)
[2022-11-27] MEDS ORDERED: OSELTAMIVIR 75 MG CAP PO ONE (15:45)
--- NOTE | 2022-11-27 16:43 | P.CNPUL ---
History of Present Illness Consult date: 11/27/22 Requesting physician: Darwin Kern Reason for consult: dyspnea, other (Influenza) Chief complaint: Shortness of breath and headache for 2 days History of present illness: Evaluating this patient today on 11/27/2022 in the ER as an overflow patient. This is a pleasant 71-year-old female, in no acute distress, on 4 L nasal cannula. Patient's chief complaints are shortness of breath, headache, chest palpitations for 2 days. Patient denies any cough, chest pain, syncope. On arrival to the ER, patient tested positive for influenza A. She is febrile with a T-max of 101.6F. She is currently receiving a course of Tamiflu. She was not vaccinated for the flu. Her heart rate is also quite elevated at 144 bpm, she is receiving Cardizem at 5 mg per hour. Blood pressure is normotensive. She is received 2 L normal saline bolus. Cardiology is consulted. Her medical history is significant for COPD, Brezti maintenance and Ventolin rescue inhalers, current lifetime smoker, 40 pack years, not requiring any home oxygen, multiple previous myocardial infarctions with last stent placed 02/26/2018, coronary artery bypass grafting, hypertension. Her primary care provider is Dr. Conte, and she sees Dr. Calles for management of her COPD. Chest x-ray from today showed no acute cardiopulmonary process. Her CBC from today shows mild leukocytosis with a WBC count of 12.8, hemoglobin 13.5, hematocrit 39.7, platelets 358,000. BMP results were stable with a sodium 139, potassium 3.5, chloride 104, serum C CO2 28, BUN 8, creatinine 0.6, glucose 113. Troponins negative 1, BNP was insignificant, lactic acid mildly elevated at 2.4. She was fluid resuscitated. She's currently maintained on DuoNeb inhalation and IV Solu-Medrol. Review of Systems REVIEW OF SYSTEMS: CONSTITUTIONAL: Denies any recent significant weight loss or weight gain. A dmits fever EYES: Denies change in vision. EARS, NOSE, MOUTH, THROAT: Denies sore throat. Admits moderate headache CARDIOVASCULAR: Denies chest pain, syncopal episodes, orthopenea. RESPIRATORY: Denies cough, congestion or hemoptysis. Admits shortness of breath for 2 days. GASTROINTESTINAL: Denies change in appetite, denies abdominal pain GENITOURINARY: Denies hematuria, denies infections. MUSKULOSKELETAL: Denies pain, denies swelling. INTEGUMENTARY: Denies rash, denies eczema. NEUROLOGICAL: Denies recent memory loss, no recent seizure activity. PSYCHIATRIC: Denies anxiety, denies depression. HEMATOLOGIC/LYMPHATIC: Denies anemia, denies enlarged lymph nodes. Past Medical History Past Medical History: COPD, Hyperlipidemia, Hypertension Additional Past Medical History / Comment(s): [place] X 3. KIDNEY STONES. Last Myocardial Infarction Date:: 1997 History of Any Multi-Drug Resistant Organisms: None Reported Past Surgical History: Cholecystectomy, Coronary Bypass/CABG, Heart Catheterization, Heart Catheterization With Stent, Hysterectomy Additional Past Surgical History / Comment(s): COLONOSCOPY. EGD. 2 cardiac stents placed 02/26/18. Past Anesthesia/Blood Transfusion Reactions: No Reported Reaction Date of Last Stent Placement:: 02/26/18 Past Psychological History: Anxiety, Depression Smoking Status: Current every day smoker Past Alcohol Use History: None Reported Past Drug Use History: None Reported - Past Family History Mother Family Medical History: Deep Vein Thrombosis (DVT), Myocardial Infarction ([place]) Father Family Medical History: Cancer, Myocardial Infarction ([place]) Medications and Allergies Home Medications Medication Instructions Recorded Confirmed Type Levothyroxine Sodium [Synthroid] 125 mcg PO DAILY 12/16/17 11/27/22 History Albuterol Inhaler [Ventolin Hfa 1 - 2 puff INHALATION RT-Q6H PRN 02/26/18 1 History Inhaler] Atorvastatin [Lipitor] 80 mg PO HS #30 tab 03/01/18 11/27/22 Rx Clopidogrel [Plavix] 75 mg PO DAILY #30 tab 03/01/18 11/27/22 Rx Metoprolol Tartrate [Lopressor] 50 mg PO BID #60 tab 03/01/18 11/27/22 Rx Nitroglycerin Sl Tabs [Nitrostat] 0.4 mg SUBLINGUAL Q5M PRN #25 tab 03/01/18 11/27/22 Rx Aspirin EC [Ecotrin Low Dose] 81 mg PO DAILY 11/27/22 11/27/22 History Budesonide/Glycopyr/Formoterol 2 puff INHALATION RT-BID 11/27/22 11/27/22 History [Breztri Aerosphere Inhaler] FLUoxetine HCL [PROzac] 40 mg PO DAILY 11/27/22 11/27/22 History Ipratropium-Albuterol Nebulize 3 ml INHALATION RT-QID PRN 11/27/22 11/27/22 History [Duoneb 0.5 mg-3 mg/3 ml Soln] Magnesium Oxide [Magnesium] 500 mg PO HS 11/27/22 11/27/22 History Multivitamins, Thera [Multivitamin 1 tab PO DAILY 11/27/22 11/27/22 History (formulary)] Allergies Allergy/AdvReac Type Severity Reaction Status Date / Time No Known Allergies Allergy Verified 11/27/22 11:40 Physical Exam Vitals: Vital Signs Temp Pulse Pulse Resp BP BP Pulse Ox 11/27/22 14:30 144 H 17 106/72 92 L 11/27/22 14:28 22 93 L 11/27/22 14:26 144 H 24 106/72 11/27/22 14:00 142 H 16 105/77 93 L 11/27/22 13:30 138 H 18 90/64 94 L 11/27/22 13:00 142 H 20 95 11/27/22 12:30 151 H 21 88/61 96 11/27/22 12:00 158 H 20 89/66 95 11/27/22 11:52 99.9 F H 163 H 24 89/66 95 11/27/22 11:30 156 H 105/86 95 11/27/22 11:00 156 H 16 132/92 91 L 11/27/22 10:30 132/90 93 L 11/27/22 10:00 158 H 14 140/104 95 11/27/22 09:33 168 H 36 H 132/80 11/27/22 09:26 101.6 F H 162 H 22 132/80 91 L Intake and Output 11/27/22 11/27/22 11/27/22 06:59 14:59 22:59 Other: Weight 58.513 kg GENERAL EXAM: Alert, active, comfortable in no apparent distress, on 4 L nasal cannula. HEAD: Normocephalic. EYES: Normal reaction of pupils, equal size. NOSE: Clear with pink turbinates. THROAT: No erythema or exudates. NECK: No masses, no JVD. CHEST: No chest wall deformity. LUNGS: Equal air entry with no crackles, rhonchi or dullness. Expiratory wheezes heard throughout. No conversational dyspnea or accessory muscle use. CVS: S1 and S2 normal with no audible murmur, regular rhythm at a rate of 144 bpm ABDOMEN: No hepatosplenomegaly, normal bowel sounds, no guarding or rigidity. SPINE: No scoliosis or deformity SKIN: No rashes CENTRAL NERVOUS SYSTEM: No focal deficits, tone is normal in all 4 extremities. EXTREMITIES: There is no peripheral edema. No clubbing, no cyanosis. Peripheral pulses are intact. Results - Laboratory Findings CBC and BMP: 11/27/22 10:12 11/27/22 10:12 PT/INR, D-dimer PT 9.8 sec (9.0-12.0) 11/27/22 10:12 INR 0.9 (<1.2) 11/27/22 10:12 Abnormal lab findings: Abnormal Labs 11/27/22 11/27/22 11/27/22 09:40 10:12 10:12 WBC 12.8 H Neutrophils # 9.4 H Glucose 113 H Plasma Lactic Acid Justus 2.4 H* Calcium 8.3 L Alkaline Phosphatase 173 H Urine Ketones Urine Blood Urine Mucus Influenza Type A (PCR) 11/27/22 11/27/22 10:12 10:12 WBC Neutrophils # Glucose Plasma Lactic Acid Justus Calcium Alkaline Phosphatase Urine Ketones Trace H Urine Blood Moderate H Urine Mucus Rare H Influenza Type A (PCR) Detected A - Diagnostic Findings Chest x-ray: image reviewed Assessment and Plan Assessment: Influenza A infection Acute COPD exacerbation secondary to above acute hypoxic respiratory failure on 4 L nasal cannula Atrial tachycardia currently on Cardizem. Cardiology is consulted History of myocardial infarction. last stent placed 02/26/2018 History of coronary coronary artery bypass graft. Hyperlipidemia Hypertension Hypothyroidism Plan: Patient's medications, labs, x-ray reviewed Continue IV Solu-Medrol Continue Tamiflu Continue DuoNeb inhalation and start budesonide inhalation and formoterol inhalation. Continue supplemental oxygen to maintain oxygen saturation greater than 92% Cardiology is following for the atrial tachycardia We will continue to follow I have personally seen and examined the patient, performed the documentation and the assessment and plan as written. Number of minutes spent on the visit: 20. Time with Patient: Greater than 30
[2022-11-27] MEDS: IPRATROPIUM-ALBUTEROL 3 ML NEB INHALATION SCH ×2 (16:53→20:36)
[2022-11-27] MEDS: methylPREDNISolone SOD SUCCI 125 MG/2 ML VIAL IV SCH ×2 (19:15→23:22)
--- NOTE | 2022-11-27 19:22 | P.HPIM ---
History of Present Illness This is a pleasant 71 years old female with past medical history of COPD, hypertension, kidney stone, history of coronary artery disease status post stent and bypass, nicotine dependence and depression Presents because of dyspnea over few days duration, really got worse over the last 2 days Associated with dry cough with no motor for phlegm Patient complaining from chest pain with coughing She denies any other GI or urinary symptoms, no abdominal pain vomiting diarrhea, no dysuria or change in urgency or frequency. No headache dizziness weakness numbness She smokes about 6 cigarettes per day, patient is counseled and she agrees to quit. No alcohol or illicit drugs On admission she has a fever of 101.6. She is tachycardic around 144, tachypneic with a breathing rate at 22, blood pressure 160/72, patient is saturating 92% on 4 L Genasal cannula WBC is 12.8, rest of CBC, INR is unremarkable D-dimer -0.51 BMP and liver enzymes are unremarkable ProBNP 440 ago. Troponin is negative. Urine analysis showing RBCs 5 and no evidence of infection Patient has positive for influenza A, call with and RSV are negative Chest x-ray: No acute cardiopulmonary process EKG showing sinus tachycardia with occasional PVCs at a rate of 160, QTC 479 at Emergency room patient received Cardizem, ibuprofen, Tylenol, normal saline and Tamiflu Patient currently on Cardizem drip 5 mg/h Review of Systems Review of systems CONSTITUTIONAL: No fever, no malaise, no fatigue. HEENT: No recent visual problems or hearing problems. Denied any sore throat. CARDIOVASCULAR: No orthopnea, PND, no palpitations, no syncope. PULMONARY: No chest wall tenderness, no hemoptysis. GASTROINTESTINAL: No diarrhea, no nausea, no vomiting, no abdominal pain. Normoactive bowel sounds. NEUROLOGICAL: No headaches, no weakness, no numbness. HEMATOLOGICAL: Denies any bleeding or petechiae. GENITOURINARY: Denies any burning micturition, frequency, or urgency. MUSCULOSKELETAL/RHEUMATOLOGICAL: Denies any joint pain, swelling, or any muscle pain. ENDOCRINE: Denies any polyuria or polydipsia. Past Medical History Past Medical History: COPD, Hypertension Additional Past Medical History / Comment(s): [place] X 3. KIDNEY STONES. Last Myocardial Infarction Date:: 1997 History of Any Multi-Drug Resistant Organisms: None Reported Past Surgical History: Cholecystectomy, Coronary Bypass/CABG, Heart Catheterization, Heart Catheterization With Stent, Hysterectomy Additional Past Surgical History / Comment(s): COLONOSCOPY. EGD. 2 cardiac s tents placed 02/26/18. Past Anesthesia/Blood Transfusion Reactions: No Reported Reaction Date of Last Stent Placement:: 02/26/18 Past Psychological History: Anxiety, Depression Smoking Status: Current every day smoker Past Alcohol Use History: None Reported Past Drug Use History: None Reported - Past Family History Mother Family Medical History: Deep Vein Thrombosis (DVT), Myocardial Infarction ([place]) Father Family Medical History: Cancer, Myocardial Infarction ([place]) Medications and Allergies Home Medications Medication Instructions Recorded Confirmed Type Levothyroxine Sodium [Synthroid] 125 mcg PO DAILY 12/16/17 11/27/22 History Albuterol Inhaler [Ventolin Hfa 1 - 2 puff INHALATION RT-Q6H PRN 02/26/18 History Inhaler] Atorvastatin [Lipitor] 80 mg PO HS #30 tab 03/01/18 11/27/22 Rx Clopidogrel [Plavix] 75 mg PO DAILY #30 tab 03/01/18 11/27/22 Rx Metoprolol Tartrate [Lopressor] 50 mg PO BID #60 tab 03/01/18 11/27/22 Rx Nitroglycerin Sl Tabs [Nitrostat] 0.4 mg SUBLINGUAL Q5M PRN #25 tab 03/01/18 11/27/22 Rx Aspirin EC [Ecotrin Low Dose] 81 mg PO DAILY 11/27/22 11/27/22 History Budesonide/Glycopyr/Formoterol 2 puff INHALATION RT-BID 11/27/22 11/27/22 History [Breztri Aerosphere Inhaler] FLUoxetine HCL [PROzac] 40 mg PO DAILY 11/27/22 11/27/22 History Ipratropium-Albuterol Nebulize 3 ml INHALATION RT-QID PRN 11/27/22 11/27/22 History [Duoneb 0.5 mg-3 mg/3 ml Soln] Magnesium Oxide [Magnesium] 500 mg PO HS 11/27/22 11/27/22 History Multivitamins, Thera [Multivitamin 1 tab PO DAILY 11/27/22 11/27/22 History (formulary)] Allergies Allergy/AdvReac Type Severity Reaction Status Date / Time No Known Allergies Allergy Verified 11/27/22 11:40 Physical Exam Vitals: Vital Signs Temp Pulse Pulse Resp BP BP Pulse Ox 11/27/22 14:30 144 H 17 106/72 92 L 11/27/22 14:28 22 93 L 11/27/22 14:26 144 H 24 106/72 11/27/22 14:00 142 H 16 105/77 93 L 11/27/22 13:30 138 H 18 90/64 94 L 11/27/22 13:00 142 H 20 95 11/27/22 12:30 151 H 21 88/61 96 11/27/22 12:00 158 H 20 89/66 95 11/27/22 11:52 99.9 F H 163 H 24 89/66 95 11/27/22 11:30 156 H 105/86 95 11/27/22 11:00 156 H 16 132/92 91 L 11/27/22 10:30 132/90 93 L 11/27/22 10:00 158 H 14 140/104 95 11/27/22 09:33 168 H 36 H 132/80 11/27/22 09:26 101.6 F H 162 H 22 132/80 91 L Intake and Output 11/27/22 11/27/22 11/27/22 06:59 14:59 22:59 Other: Weight 58.513 kg GENERAL: The patient is alert and oriented x3, not in any acute distress. Well developed, well nourished. HEENT: Pupils are round and equally reacting to light. EOMI. No scleral icterus. No conjunctival pallor. Normocephalic, atraumatic. No pharyngeal erythema. No thyromegaly. CARDIOVASCULAR: S1 and S2 present. No murmurs, rubs, or gallops. -PULMONARY: Chest is clear to auscultation,. Bilateral scattered wheezing. No crackles. ABDOMEN: Soft, nontender, nondistended, normoactive bowel sounds. No palpable organomegaly. MUSCULOSKELETAL: No joint swelling or deformity. EXTREMITIES: No cyanosis, clubbing, or pedal edema. NEUROLOGICAL: Gross neurological examination did not reveal any focal deficits. SKIN: No rashes. no petechiae. Results CBC & Chem 7: 11/27/22 10:12 11/27/22 10:12 Labs: Abnormal Lab Results - Last 24 Hours (Table) 11/27/22 11/27/22 11/27/22 Range/Units 09:40 10:12 10:12 WBC 12.8 H (3.8-10.6) k/uL Neutrophils # 9.4 H (1.3-7.7) k/uL Glucose 113 H (74-99) mg/dL Plasma Lactic Acid Justus 2.4 H* (0.7-2.0) mmol/L Calcium 8.3 L (8.4-10.2) mg/dL Alkaline Phosphatase 173 H (38-126) U/L Urine Ketones (Negative) Urine Blood (Negative) Urine Mucus (None) /hpf Influenza Type A (PCR) (Not Detectd) 11/27/22 11/27/22 Range/Units 10:12 10:12 WBC (3.8-10.6) k/uL Neutrophils # (1.3-7.7) k/uL Glucose (74-99) mg/dL Plasma Lactic Acid Justus (0.7-2.0) mmol/L Calcium (8.4-10.2) mg/dL Alkaline Phosphatase (38-126) U/L Urine Ketones Trace H (Negative) Urine Blood Moderate H (Negative) Urine Mucus Rare H (None) /hpf Influenza Type A (PCR) Detected A (Not Detectd) Assessment and Plan Assessment: Acute hypoxic respiratory failure Sepsis with fever and leukocytosis, secondary to above Sinus tachycardia Acute influenza A infection COPD with exacerbation Hypertension history of coronary artery disease status post stent and bypass nicotine dependence Exactly, depression, not an active issue Plan: Continue with Tamiflu Continue with steroids, currently on IV Solu-Medrol 60 mg Continue with Bronchodilator and oxygen Pulmonary consult Continue Cardizem drjosseline and coding spec has been consulted Labs and medication were reviewed.. Continue same treatment. Continue with symptomatic treatment. Resume home medication. Monitor lytes and vitals. DVT and GI prophylaxis. Further recommendations as per clinical course of the patient DVT prophylaxis: Subcutaneous heparin GI Prophylaxis: Pepcid PT/OT: Pending Prognosis is guarded
[2022-11-27] MEDS: FAMOTIDINE 20 MG/2 ML VIAL IV SCH (20:07)
[2022-11-27] MEDS: FORMOTEROL FUMARATE 20 MCG/2 ML NEBU INHALATION SCH (20:35)
[2022-11-27] MEDS: BUDESONIDE 1 MG/2 ML NEBU INHALATION SCH (20:36)
[2022-11-27] MEDS: HEPARIN SODIUM,PORCINE/PF 5,000 UNIT/0.5 ML SYRINGE SQ SCH (23:23)
[2022-11-28] MEDS: INSULIN ASPART (NovoLOG) 100 UNIT/ML VIAL SQ SCH ×4 (06:04→21:15)
[2022-11-28 06:05] LABS: Glucose,Whole Blood 153 mg/dL (70-110)
[2022-11-28] MEDS: methylPREDNISolone SOD SUCCI 125 MG/2 ML VIAL IV SCH ×4 (06:06→23:31)
--- NOTE | 2022-11-28 07:29 | P.CRDCN ---
History of Present Illness Consult date: 11/28/22 Chief complaint: Shortness of breath History of present illness: The patient is a pleasant 71-year-old female patient with a past medical history significant for CAD with prior CABG and stenting as well as hypertension and dyslipidemia who was admitted to the hospital complaining of shortness of breath. The patient presented to the emergency department complaining of fever and chills and cough not productive of any sputum. No symptoms of chest pain or chest discomfort. No dizziness or lightheadedness and no feeling of heart racing or fluttering. Further investigation including EKG showed what it seems to be atrial tachycardia. Subsequently the patient was started on Cardizem IV and she converted to normal sinus mechanism and since then she has been maintaining normal sinus mechanism. She underwent a heart catheterization last in 2018 and that showed severe triple vessel CAD with patent WILLSON to LAD and severe disease involving the SVG to LCx and SVG to RCA. Both were stented. During this time she underwent also investigation chest x-ray and that showed no acute abnormalities. Troponin came in to be unremarkable. The rest of the blood work came in to be unremarkable. She was also seen by the pulmonary service. The patient was tested positive for influenza A. Currently she is on isolation. Past Medical History Past Medical History: COPD, Hypertension Additional Past Medical History / Comment(s): [place] X 3. KIDNEY STONES. Last Myocardial Infarction Date:: 1997 History of Any Multi-Drug Resistant Organisms: None Reported Past Surgical History: Cholecystectomy, Coronary Bypass/CABG, Heart Catheterization, Heart Catheterization With Stent, Hysterectomy Additional Past Surgical History / Comment(s): COLONOSCOPY. EGD. 2 cardiac stents placed 02/26/18. Past Anesthesia/Blood Transfusion Reactions: No Reported Reaction Date of Last Stent Placement:: 02/26/18 Past Psychological History: Anxiety, Depression Smoking Status: Current every day smoker Past Alcohol Use History: None Reported Additional Past Alcohol Use History / Comment(s): SMOKING 6 CIG. DAILY DOWN FROM 1 PPD FOR PAST 40 YEARS Past Drug Use History: None Reported - Past Family History Mother Family Medical History: Deep Vein Thrombosis (DVT), Myocardial Infarction ([place]) Father Family Medical History: Cancer, Myocardial Infarction ([place]) Medications and Allergies Home Medications Medication Instructions Recorded Confirmed Type Levothyroxine Sodium [Synthroid] 125 mcg PO DAILY 12/16/17 11/27/22 History Albuterol Inhaler [Ventolin Hfa 1 - 2 puff INHALATION RT-Q6H PRN 02/26/18 11/27/22 History Inhaler] Atorvastatin [Lipitor] 80 mg PO HS #30 tab 03/01/18 11/27/22 Rx Clopidogrel [Plavix] 75 mg PO DAILY #30 tab 03/01/18 11/27/22 Rx Metoprolol Tartrate [Lopressor] 50 mg PO BID #60 tab 03/01/18 11/27/22 Rx Nitroglycerin Sl Tabs [Nitrostat] 0.4 mg SUBLINGUAL Q5M PRN #25 tab 03/01/18 11/27/22 Rx Aspirin EC [Ecotrin Low Dose] 81 mg PO DAILY 11/27/22 11/27/22 History Budesonide/Glycopyr/Formoterol 2 puff INHALATION RT-BID 11/27/22 11/27/22 History [Breztri Aerosphere Inhaler] FLUoxetine HCL [PROzac] 40 mg PO DAILY 11/27/22 11/27/22 History Ipratropium-Albuterol Nebulize 3 ml INHALATION RT-QID PRN 11/27/22 11/27/22 History [Duoneb 0.5 mg-3 mg/3 ml Soln] Magnesium Oxide [Magnesium] 500 mg PO HS 11/27/22 11/27/22 History Multivitamins, Thera [Multivitamin 1 tab PO DAILY 11/27/22 11/27/22 History (formulary)] Allergies Allergy/AdvReac Type Severity Reaction Status Date / Time No Known Allergies Allergy Verified 11/27/22 11:40 Physical Exam Vitals: Vital Signs Temp Pulse Pulse Resp BP BP Pulse Ox 11/28/22 03:45 98.2 F 87 18 114/67 94 L 11/28/22 01:42 102 H 18 11/27/22 23:21 99.0 F 101 H 18 121/70 95 11/27/22 22:25 100.5 F H 107 H 20 113/59 94 L 11/27/22 20:57 125 H 11/27/22 20:45 128 H 11/27/22 20:40 126 H 32 H 11/27/22 20:36 130 H 11/27/22 20:20 149 H 81 H 121/94 11/27/22 20:00 102 H 23 134/74 94 L 11/27/22 19:40 105 H 19 134/74 95 11/27/22 19:20 100 20 118/79 95 11/27/22 19:00 129/70 96 11/27/22 18:40 122 H 25 H 129/70 93 L 11/27/22 18:20 102 H 15 96 11/27/22 18:00 152 H 15 121/77 85 L 11/27/22 17:40 146 H 14 121/77 90 L 11/27/22 17:20 144 H 18 105/84 91 L 11/27/22 17:04 144 H 11/27/22 17:00 146 H 22 106/75 96 11/27/22 16:55 144 H 11/27/22 16:40 142 H 23 92 L 11/27/22 16:20 140 H 28 H 105/75 87 L 11/27/22 16:00 105/75 11/27/22 15:40 144 H 21 105/75 96 11/27/22 15:20 146 H 18 94/66 97 11/27/22 15:00 101 H 21 102/75 94 L 11/27/22 14:40 146 H 11 L 102/75 95 11/27/22 14:30 144 H 17 106/72 92 L 11/27/22 14:28 22 93 L 11/27/22 14:26 144 H 24 106/72 11/27/22 14:00 142 H 16 105/77 93 L 11/27/22 13:30 138 H 18 90/64 94 L 11/27/22 13:00 142 H 20 95 11/27/22 12:30 151 H 21 88/61 96 11/27/22 12:00 158 H 20 89/66 95 11/27/22 11:52 99.9 F H 163 H 24 89/66 95 11/27/22 11:30 156 H 105/86 95 11/27/22 11:00 156 H 16 132/92 91 L 11/27/22 10:30 132/90 93 L 11/27/22 10:00 158 H 14 140/104 95 11/27/22 09:33 168 H 36 H 132/80 11/27/22 09:26 101.6 F H 162 H 22 132/80 91 L Intake and Output 12/11/28/22 11/28/22 22:59 06:59 14:59 Intake Total 355 Output Total 400 Balance 355 -400 Intake: Oral 355 Output: Urine 400 Other: Voiding Method External Catheter Weight 58.513 kg - Constitutional General appearance: no acute distress - Respiratory Respiratory: bilateral: wheezing - Cardiovascular Rhythm: regular Results 11/27/22 10:12 11/27/22 10:12 Cardiac Enzymes 11/27/22 11/27/22 Range/Units 10:12 10:12 AST 34 (14-36) U/L Troponin I <0.012 (0.000-0.034) ng/mL Coagulation 11/27/22 Range/Units 10:12 PT 9.8 (9.0-12.0) sec APTT 25.1 (22.0-30.0) sec CBC 11/27/22 Range/Units 10:12 WBC 12.8 H (3.8-10.6) k/uL RBC 4.41 (3.80-5.40) m/uL Hgb 13.5 (11.4-16.0) gm/dL Hct 39.7 (34.0-46.0) % Plt Count 358 (150-450) k/uL Comprehensive Metabolic Panel 11/27/22 Range/Units 10:12 Sodium 139 (137-145) mmol/L Potassium 3.5 (3.5-5.1) mmol/L Chloride 104 (98-107) mmol/L Carbon Dioxide 28 (22-30) mmol/L BUN 8 (7-17) mg/dL Creatinine 0.60 (0.52-1.04) mg/dL Glucose 113 H (74-99) mg/dL Calcium 8.3 L (8.4-10.2) mg/dL AST 34 (14-36) U/L ALT 32 (4-34) U/L Alkaline Phosphatase 173 H (38-126) U/L Total Protein 6.8 (6.3-8.2) g/dL Albumin 3.8 (3.5-5.0) g/dL Current Medications Generic Name Dose Route Start Last Admin Trade Name Freq PRN Reason Stop Dose Admin Acetaminophen 650 mg 11/27/22 22:21 Acetaminophen Tab 325 Mg Tab PO Q6HR PRN Fever and/ or Pain Albuterol/Ipratropium 3 ml 11/27/22 16:00 11/27/22 20:36 Ipratropium-Albuterol 3 Ml Neb INHALATION 3 ml RT-QID FRANCESCO Administration Albuterol/Ipratropium 3 ml 11/27/22 15:27 Ipratropium-Albuterol 3 Ml Neb INHALATION RT-Q2H PRN Shortness Of Breath Or Wheezing Budesonide 1 mg 11/27/22 20:00 11/27/22 20:36 Budesonide 1 Mg/2 Ml Nebu INHALATION 1 mg RT-BID FRANCESCO Administration Famotidine 20 mg 11/27/22 21:00 11/27/22 20:07 Famotidine 20 Mg/2 Ml Vial IV 20 mg Q12HR FRANCESCO Administration Formoterol Fumarate 20 mcg 11/27/22 20:00 11/27/22 20:35 Formoterol Fumarate 20 Mcg/2 Ml Nebu INHALATION 20 mcg RT-BID FRANCESCO Administration Heparin Sodium (Porcine) 5,000 unit 11/27/22 21:00 11/27/22 23:23 Heparin Sodium,Porcine/Pf 5,000 Unit/0.5 Ml Syringe SQ 5,000 unit Q12HR FRANCESCO Administration Diltiazem HCl 125 mg/ Sodium 125 mls @ 5 mls/hr 11/27/22 10:15 11/27/22 10:40 Chloride IV 5 mg/hr .Q24H FRANCESCO 5 mls/hr Administration 5 MG/HR Insulin Aspart 0 unit 11/28/22 07:30 11/28/22 06:04 Insulin Aspart (Novolog) 100 Unit/Ml Vial SQ Not Given ACHS [facility] Protocol Methylprednisolone Sodium Succinate 60 mg 11/27/22 18:00 11/28/22 06:06 Methylprednisolone Sod Succi 125 Mg/2 Ml Vial IV 60 mg Q6HR FRANCESCO Administration Naloxone HCl 0.2 mg 11/27/22 15:27 Naloxone 0.4 Mg/Ml 1 Ml Vial IVP Q2M PRN Opioid Reversal Oseltamivir Phosphate 75 mg 11/28/22 09:00 Oseltamivir 75 Mg Cap PO 12/02/22 09:01 Q12HR [facility] Protocol Intake and Output 11/27/22 11/28/22 11/28/22 22:59 06:59 14:59 Intake Total 355 Output Total 400 Balance 355 -400 Intake: Oral 355 Output: Urine 400 Other: Voiding Method External Catheter Weight 58.513 kg 11/27/22 10:12 11/27/22 10:12 Assessment and Plan Assessment: Assessment Influenza A infection Shortness of breath secondary to the above Atrial tachycardia likely to be triggered by the influenza CAD as described above Multiple comorbid conditions Plan DC Cardizem IV Restart the patient back on oral beta ryley Continue the current medical regimen Follow-up with the patient
[2022-11-28] MEDS: FAMOTIDINE 20 MG/2 ML VIAL IV SCH (08:28)
[2022-11-28] MEDS: HEPARIN SODIUM,PORCINE/PF 5,000 UNIT/0.5 ML SYRINGE SQ SCH ×2 (08:28→21:14)
[2022-11-28] MEDS: ACETAMINOPHEN TAB 325 MG TAB PO PRN ×2 (08:28→21:15)
[2022-11-28] MEDS: METOPROLOL TARTRATE 50 MG TAB PO SCH ×2 (08:28→21:15)
[2022-11-28] MEDS: OSELTAMIVIR 75 MG CAP PO SCH ×2 (08:28→21:15)
[2022-11-28 08:44] LABS: Basophils % (A) 0 %; Eosinophils % (A) 0 %; HCT 38.4 % (34.0-46.0); HGB 12.3 gm/dL (11.4-16.0); Lymphocytes # (A) 0.7 k/uL (1.0-4.8); Lymphocytes % (A) 9 %; MCH 29.6 pg (25.0-35.0); MCHC 32.1 g/dL (31.0-37.0); MCV 92.2 fL (80.0-100.0); Mean Platelet Volume 7.9; Monocytes # (A) 0.1 k/uL (0-1.0); Monocytes % (A) 1 %; Neutrophils # (A) 7.1 k/uL (1.3-7.7); Neutrophils % (A) 89 %; Platelet Count 321 k/uL (150-450); RBC 4.16 m/uL (3.80-5.40); RDW 13.8 % (11.5-15.5); WBC 7.9 k/uL (3.8-10.6)
[2022-11-28 08:53] LABS: African American GFR (CKD) >90 (>60 ml/min/1.73 sqM); Anion Gap 4 mmol/L; Blood Urea Nitrogen 7 mg/dL (7-17); Calcium 8.1 mg/dL (8.4-10.2); Carbon Dioxide 26 mmol/L (22-30); Chloride 107 mmol/L (98-107); Glucose 151 mg/dL (74-99); Non-African American GFR(CKD) >90 (>60 ml/min/1.73 sqM); Potassium 4.1 mmol/L (3.5-5.1); Sodium 137 mmol/L (137-145)
[2022-11-28] MEDS: IPRATROPIUM-ALBUTEROL 3 ML NEB INHALATION SCH ×4 (08:55→19:40)
[2022-11-28] MEDS: BUDESONIDE 1 MG/2 ML NEBU INHALATION SCH ×2 (08:55→19:40)
[2022-11-28] MEDS: FORMOTEROL FUMARATE 20 MCG/2 ML NEBU INHALATION SCH ×2 (08:55→19:40)
--- NOTE | 2022-11-28 11:43 | P.PN ---
Subjective This is a pleasant 71 years old female with past medical history of COPD, hypertension, kidney stone, history of coronary artery disease status post stent and bypass, nicotine dependence and depression Presents because of dyspnea over few days duration, really got worse over the last 2 days Associated with dry cough with no motor for phlegm Patient complaining from chest pain with coughing She denies any other GI or urinary symptoms, no abdominal pain vomiting diarrhea, no dysuria or change in urgency or frequency. No headache dizziness weakness numbness She smokes about 6 cigarettes per day, patient is counseled and she agrees to quit. No alcohol or illicit drugs On admission she has a fever of 101.6. She is tachycardic around 144, tachypneic with a breathing rate at 22, blood pressure 160/72, patient is saturating 92% on 4 L Genasal cannula WBC is 12.8, rest of CBC, INR is unremarkable D-dimer -0.51 BMP and liver enzymes are unremarkable ProBNP 440 ago. Troponin is negative. Urine analysis showing RBCs 5 and no evidence of infection Patient has positive for influenza A, call with and RSV are negative Chest x-ray: No acute cardiopulmonary process EKG showing sinus tachycardia with occasional PVCs at a rate of 160, QTC 479 at Emergency room patient received Cardizem, ibuprofen, Tylenol, normal saline and Tamiflu Patient currently on Cardizem drip 5 mg/h 11/28/2022 Patient respiratory status is improving as she was admitted with influenza A infection with no overt pneumonia but with hypoxia. Thought secondary to acute COPD exacerbation, she is less tachypneic and required 3 units of oxygen via nasal cannula. Currently she is kept with IV Solu-Medrol 60 mg and Tamiflu. Her tachycardia improved also on heart rate around 100, mostly secondary to her flow as an infection. Her Cardizem drip was stopped and she is currently on home dose of metoprolol 50 mg. No more fever. The [employer] back to normal at 7.9. Objective - Vital Signs Vital signs: Vital Signs Temp 98.6 F 11/28/22 08:34 Pulse 100 11/28/22 09:07 Resp 18 11/28/22 08:34 BP 126/69 11/28/22 08:34 Pulse Ox 94 L 11/28/22 08:34 FiO2 Intake & Output 11/27/22 11/28/22 11/28/22 18:59 06:59 18:59 Intake Total 355 Output Total 400 Balance -45 Weight 58.513 kg 58.513 kg Intake: Oral 355 Output: Urine 400 Other: Voiding Method External Catheter External Catheter - Labs CBC & Chem 7: 11/28/22 07:48 11/28/22 07:48 Labs: Abnormal Lab Results - Last 24 Hours (Table) 11/27/22 11/27/22 11/27/22 Range/Units 09:40 10:12 10:12 Lymphocytes # (1.0-4.8) k/uL Creatinine (0.52-1.04) mg/dL Glucose (74-99) mg/dL POC Glucose (mg/dL) (70-110) mg/dL Plasma Lactic Acid Justus 2.4 H* (0.7-2.0) mmol/L Calcium (8.4-10.2) mg/dL Procalcitonin (0.02-0.09) ng/mL Urine Ketones Trace H (Negative) Urine Blood Moderate H (Negative) Urine Mucus Rare H (None) /hpf Influenza Type A (PCR) Detected A (Not Detectd) 11/28/22 11/28/22 11/28/22 Range/Units 06:03 07:48 07:48 Lymphocytes # 0.7 L (1.0-4.8) k/uL Creatinine (0.52-1.04) mg/dL Glucose (74-99) mg/dL POC Glucose (mg/dL) 153 H (70-110) mg/dL Plasma Lactic Acid Justus (0.7-2.0) mmol/L Calcium (8.4-10.2) mg/dL Procalcitonin 0.17 H (0.02-0.09) ng/mL Urine Ketones (Negative) Urine Blood (Negative) Urine Mucus (None) /hpf Influenza Type A (PCR) (Not Detectd) 11/28/22 Range/Units 07:48 Lymphocytes # (1.0-4.8) k/uL Creatinine 0.48 L (0.52-1.04) mg/dL Glucose 151 H (74-99) mg/dL POC Glucose (mg/dL) (70-110) mg/dL Plasma Lactic Acid Justus (0.7-2.0) mmol/L Calcium 8.1 L (8.4-10.2) mg/dL Procalcitonin (0.02-0.09) ng/mL Urine Ketones (Negative) Urine Blood (Negative) Urine Mucus (None) /hpf Influenza Type A (PCR) (Not Detectd) Microbiology - Last 24 Hours (Table) 11/27/22 10:12 Blood Culture - Final Blood Assessment and Plan Assessment: Acute hypoxic respiratory failure Sepsis with fever and leukocytosis, secondary to above Sinus tachycardia Acute influenza A infection COPD with exacerbation Hypertension history of coronary artery disease status post stent and bypass nicotine dependence Exactly, depression, not an active issue Plan: Continue with Tamiflu Continue with steroids, currently on IV Solu-Medrol 60 mg Continue with Bronchodilator and oxygen Pulmonary consult Continue with metoprolol, 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 Continue same treatment. Continue with symptomatic treatment. Resume home medication. Monitor lytes and vitals. DVT and GI prophylaxis. Further recommendations as per clinical course of the patient DVT prophylaxis: Subcutaneous heparin GI Prophylaxis: Pepcid PT/OT: Pending Prognosis is guarded
[2022-11-28 11:46] LABS: Glucose,Whole Blood 168 mg/dL (70-110)
--- NOTE | 2022-11-28 13:08 | P.PN ---
Subjective Progress Note Date: 11/28/22 Principal diagnosis: Shortness of breath. Evaluating this patient today on 11/27/2022 in the ER as an overflow patient. This is a pleasant 71-year-old female, in no acute distress, on 4 L nasal cannula. Patient's chief complaints are shortness of breath, headache, chest palpitations for 2 days. Patient denies any cough, chest pain, syncope. On arrival to the ER, patient tested positive for influenza A. She is febrile with a T-max of 101.6F. She is currently receiving a course of Tamiflu. She was not vaccinated for the flu. Her heart rate is also quite elevated at 144 bpm, she is receiving Cardizem at 5 mg per hour. Blood pressure is normotensive. She is received 2 L normal saline bolus. Cardiology is consulted. Her medical history is significant for COPD, Brezti maintenance and Ventolin rescue inhalers, current lifetime smoker, 40 pack years, not requiring any home oxygen, multiple previous myocardial infarctions with last stent placed 02/26/2018, coronary a rtery bypass grafting, hypertension. Her primary care provider is Dr. Conte, and she sees Dr. Calles for management of her COPD. Chest x-ray from today showed no acute cardiopulmonary process. Her CBC from today shows mild leukocytosis with a WBC count of 12.8, hemoglobin 13.5, hematocrit 39.7, platelets 358,000. BMP results were stable with a sodium 139, potassium 3.5, chloride 104, serum C CO2 28, BUN 8, creatinine 0.6, glucose 113. Troponins negative 1, BNP was insignificant, lactic acid mildly elevated at 2.4. She was fluid resuscitated. She's currently maintained on DuoNeb inhalation and IV Solu-Medrol. Progress note dated 11/28/2022. 71-year-old female seen in the emergency department yesterday. The patient had significant tachycardia, and was very short of breath. Currently, she is seen in room 382. She is on 2 L of oxygen. Her heart rate is below 100. She's not receiving any IV fluids. She is feeling much better. Labs include a white count 7.9, hemoglobin 12.3, hematocrit 38.4, and a platelet count of 321,000. Sodium 137, potassium 4.1, chlorides 107, CO2 26, BUN 7, creatinine 0.48. Pro- calcitonin level is 0.17. The patient's chest x-ray was normal. Objective - Vital Signs Vital signs: Vital Signs Temp 98.6 F 11/28/22 08:34 Pulse 80 11/28/22 12:30 Resp 18 11/28/22 08:34 BP 126/69 11/28/22 08:34 Pulse Ox 94 L 11/28/22 08:34 FiO2 Intake & Output 11/27/22 11/28/22 11/28/22 18:59 06:59 18:59 Intake Total 355 Output Total 400 Balance -45 Weight 58.513 kg 58.513 kg Intake: Oral 355 Output: Urine 400 Other: Voiding Method External Catheter External Catheter - Exam No acute distress, oriented 3. No respiratory difficulty. Currently on 2 L. HEENT examination is grossly unremarkable. Neck supple. Full range of motion. No adenopathy thyromegaly or neck vein distention. Cardiovascular examination reveals regular rhythm rate. S1-S2 normal. No S3 or S4. No discernible murmur noted. Heart rate is 80 bpm. Heart sounds are distant. Lungs reveal scattered inspiratory and expiratory wheezes and rhonchi. Breath sounds equal bilaterally. There is prolongation on forced maneuver. No crackles. Abdomen soft bowel sounds are heard. No masses or tenderness. Extremities are intact. No cyanosis clubbing or edema. Skin is without rash or lesion. Neurologic examination is brief but nonfocal. - Labs CBC & Chem 7: 11/28/22 07:48 11/28/22 07:48 Labs: Abnormal Lab Results - Last 24 Hours (Table) 11/27/22 11/27/22 11/27/22 Range/Units 09:40 10:12 10:12 Lymphocytes # (1.0-4.8) k/uL Creatinine (0.52-1.04) mg/dL Glucose (74-99) mg/dL POC Glucose (mg/dL) (70-110) mg/dL Plasma Lactic Acid Justus 2.4 H* (0.7-2.0) mmol/L Calcium (8.4-10.2) mg/dL Procalcitonin (0.02-0.09) ng/mL Urine Ketones Trace H (Negative) Urine Blood Moderate H (Negative) Urine Mucus Rare H (None) /hpf Influenza Type A (PCR) Detected A (Not Detectd) 11/28/22 11/28/22 11/28/22 Range/Units 06:03 07:48 07:48 Lymphocytes # 0.7 L (1.0-4.8) k/uL Creatinine (0.52-1.04) mg/dL Glucose (74-99) mg/dL POC Glucose (mg/dL) 153 H (70-110) mg/dL Plasma Lactic Acid Justus (0.7-2.0) mmol/L Calcium (8.4-10.2) mg/dL Procalcitonin 0.17 H (0.02-0.09) ng/mL Urine Ketones (Negative) Urine Blood (Negative) Urine Mucus (None) /hpf Influenza Type A (PCR) (Not Detectd) 11/28/22 11/28/22 Range/Units 07:48 11:45 Lymphocytes # (1.0-4.8) k/uL Creatinine 0.48 L (0.52-1.04) mg/dL Glucose 151 H (74-99) mg/dL POC Glucose (mg/dL) 168 H (70-110) mg/dL Plasma Lactic Acid Justus (0.7-2.0) mmol/L Calcium 8.1 L (8.4-10.2) mg/dL Procalcitonin (0.02-0.09) ng/mL Urine Ketones (Negative) Urine Blood (Negative) Urine Mucus (None) /hpf Influenza Type A (PCR) (Not Detectd) Microbiology - Last 24 Hours (Table) 11/27/22 10:12 Blood Culture - Preliminary Blood No Growth after 24 hours 11/27/22 10:12 Blood Culture Gram Stain - Preliminary Blood 11/27/22 10:12 Blood Culture - Final Blood Assessment and Plan Assessment: Influenza A infection. Acute COPD exacerbation secondary to above. Acute hypoxic respiratory failure. Atrial tachycardia. History of myocardial infarction, S/P stent, 2018. History of coronary coronary artery bypass graft. Hyperlipidemia. Hypertension. Hypothyroidism. Plan: Plan dated 11/28/2022. Today, the patient is much better. Yesterday in the emergency room, she was very short of breath, and had significant tachycardia, with rates above 130 bpm. Currently, her heart rate is below 100. She's feeling much better, and her breathing is much improved. To follow make recommendations along the way. The patient's currently on IV Solu-Medrol, updrafts, and breathing treatments with albuterol and ipratropium bromide. Prognosis is guarded. We will continue to follow. Time with Patient: Less than 30
[2022-11-28 16:31] LABS: Glucose,Whole Blood 170 mg/dL (70-110)
[2022-11-28] MEDS: FLUoxetine HCL 20 MG CAP PO SCH (17:58)
[2022-11-28 20:26] LABS: Glucose,Whole Blood 221 mg/dL (70-110)
[2022-11-28] MEDS: ATORVASTATIN 80 MG TAB PO SCH (21:15)
[2022-11-28] MEDS: FAMOTIDINE 20 MG TAB PO SCH (21:15)
--- NOTE | 2022-11-28 22:11 | P.CONS ---
History of Present Illness - Reason for Consult Consult date: 11/28/22 Positive blood culture Requesting physician: Silas E Kvng - Chief Complaint Increasing shortness of breath 2 days - History of Present Illness Patient is a 71-year-old female with a past medical history significant for hypertension COPD presenting to the ER yesterday morning for evaluation of increasing shortness of breath the patient's symptom has been going on for about 2 days before presentation to the hospital shortness of breath mostly with exertion and the patient also complaining of palpitations but no chest pain patient also have a cough which is moderate intensity but drainage and not bring up any sputum no pleuritic chest pain. Denies having any nausea no vomiting no abdominal pain or any diarrhea with the symptoms the patient has been evaluated by the ER physician on arrival to the ER the patient was febrile with a temperature of 101.6 F patient was hypoxic and need for supplemental oxygen currently on 2 L nasal cannula patient did have white count 12.8 with a left shift D-dimer was normal kidney function was normal lactic acid elevated liver enzymes are normal Pro-Clement to 0.17 urine has been negative patient did test positive for influenza A COVID testing was negative patient did have a chest x-ray that was negative for acute cardiopulmonary process patient has been diagnosed with acute influenza A along with COPD exacerbation and is currently being treated with the Tamiflu in addition to Solu-Medrol and bronchodilator patient did have a blood culture drawn which came back positive gram-positive cocci that has prompted this infectious disease consultation patient currently do not have any open sores or joint swelling Review of Systems Positive point has been mentioned in the HPI rest of the systems are negative Past Medical History Past Medical History: COPD, Hypertension Additional Past Medical History / Comment(s): [place] X 3. KIDNEY STONES. Last Myocardial Infarction Date:: 1997 History of Any Multi-Drug Resistant Organisms: None Reported Past Surgical History: Cholecystectomy, Coronary Bypass/CABG, Heart Catheterization, Heart Catheterization With Stent, Hysterectomy Additional Past Surgical History / Comment(s): COLONOSCOPY. EGD. 2 cardiac stents placed 02/26/18. Past Anesthesia/Blood Transfusion Reactions: No Reported Reaction Date of Last Stent Placement:: 02/26/18 Past Psychological History: Anxiety, Depression Smoking Status: Current every day smoker Past Alcohol Use History: None Reported Additional Past Alcohol Use History / Comment(s): SMOKING 6 CIG. DAILY DOWN FROM 1 PPD FOR PAST 40 YEARS Past Drug Use History: None Reported - Past Family History Mother Family Medical History: Deep Vein Thrombosis (DVT), Myocardial Infarction ([place]) Father Family Medical History: Cancer, Myocardial Infarction (AL) Medications and Allergies Home Medications Medication Instructions Recorded Confirmed Type Levothyroxine Sodium [Synthroid] 125 mcg PO DAILY 12/16/17 11/27/22 History Albuterol Inhaler [Ventolin Hfa 1 - 2 puff INHALATION RT-Q6H PRN 02/26/18 11/27/22 History Inhaler] Atorvastatin [Lipitor] 80 mg PO HS #30 tab 03/01/18 11/27/22 Rx Clopidogrel [Plavix] 75 mg PO DAILY #30 tab 03/01/18 11/27/22 Rx Metoprolol Tartrate [Lopressor] 50 mg PO BID #60 tab 03/01/18 11/27/22 Rx Nitroglycerin Sl Tabs [Nitrostat] 0.4 mg SUBLINGUAL Q5M PRN #25 tab 03/01/18 11/27/22 Rx Aspirin EC [Ecotrin Low Dose] 81 mg PO DAILY 11/27/22 11/27/22 History Budesonide/Glycopyr/Formoterol 2 puff INHALATION RT-BID 11/27/22 11/27/22 History [Breztri Aerosphere Inhaler] FLUoxetine HCL [PROzac] 40 mg PO DAILY 11/27/22 11/27/22 History Ipratropium-Albuterol Nebulize 3 ml INHALATION RT-QID PRN 11/27/22 11/27/22 History [Duoneb 0.5 mg-3 mg/3 ml Soln] Magnesium Oxide [Magnesium] 500 mg PO HS 11/27/22 11/27/22 History Multivitamins, Thera [Multivitamin 1 tab PO DAILY 11/27/22 11/27/22 History (formulary)] Oseltamivir [Tamiflu] 75 mg PO Q12HR #10 cap 11/30/22 Rx predniSONE 0 mg PO DIRECTED #30 tab 11/30/22 Rx Allergies Allergy/AdvReac Type Severity Reaction Status Date / Time No Known Allergies Allergy Verified 11/27/22 11:40 Physical Exam Vitals: Vital Signs Temp Pulse Pulse Resp BP BP Pulse Ox 11/28/22 09:07 100 11/28/22 09:06 100 11/28/22 08:55 108 H 11/28/22 08:34 98.6 F 96 18 126/69 94 L 11/28/22 03:45 98.2 F 87 18 114/67 94 L 11/28/22 01:42 102 H 18 11/27/22 23:21 99.0 F 101 H 18 121/70 95 11/27/22 22:25 100.5 F H 107 H 20 113/59 94 L 11/27/22 20:57 125 H 11/27/22 20:45 128 H 11/27/22 20:40 126 H 32 H 11/27/22 20:36 130 H 11/27/22 20:20 149 H 81 H 121/94 11/27/22 20:00 102 H 23 134/74 94 L 11/27/22 19:40 105 H 19 134/74 95 11/27/22 19:20 100 20 118/79 95 11/27/22 19:00 129/70 96 11/27/22 18:40 122 H 25 H 129/70 93 L 11/27/22 18:20 102 H 15 96 11/27/22 18:00 152 H 15 121/77 85 L 11/27/22 17:40 146 H 14 121/77 90 L 11/27/22 17:20 144 H 18 105/84 91 L 11/27/22 17:04 144 H 11/27/22 17:00 146 H 22 106/75 96 11/27/22 16:55 144 H 11/27/22 16:40 142 H 23 92 L 11/27/22 16:20 140 H 28 H 105/75 87 L 11/27/22 16:00 105/75 11/27/22 15:40 144 H 21 105/75 96 11/27/22 15:20 146 H 18 94/66 97 11/27/22 15:00 101 H 21 102/75 94 L 11/27/22 14:40 146 H 11 L 102/75 95 11/27/22 14:30 144 H 17 106/72 92 L 11/27/22 14:28 22 93 L 11/27/22 14:26 144 H 24 106/72 11/27/22 14:00 142 H 16 105/77 93 L 11/27/22 13:30 138 H 18 90/64 94 L 11/27/22 13:00 142 H 20 95 11/27/22 12:30 151 H 21 88/61 96 11/27/22 12:00 158 H 20 / 95 11/27/22 11:52 99.9 F H 163 H 24 95 Intake and Output 11/27/22 11/28/22 11/28/22 22:59 06:59 14:59 Intake Total 355 Output Total 400 Balance 355 -400 Intake: Oral 355 Output: Urine 400 Other: Voiding Method External Catheter External Catheter Weight 58.513 kg GENERAL DESCRIPTION: Elderly female lying in bed, no distress. No tachypnea or accessory muscle of respiration use. HEENT: Shows Pallor , no scleral icterus. Oral mucous membrane is dry. No pharyngeal erythema or thrush NECK: Trachea central, no thyromegaly. LUNGS: Unlabored breathing. Coarse breath sounds bilaterally with occasional wheeze. HEART: S1, S2, regular rate and rhythm. No loud murmur ABDOMEN: Soft, no tenderness , guarding or rigidity, no organomegaly EXTREMITIES: No edema of feet. SKIN: No rash, no masses palpable. NEUROLOGICAL: The patient is awake, alert, oriented x3, mood and affect normal. Results CBC & Chem 7: 11/30/22 07:10 11/29/22 07:54 Labs: Abnormal Lab Results - Last 24 Hours (Table) 11/27/22 11/27/22 11/27/22 Range/Units 09:40 10:12 10:12 Lymphocytes # (1.0-4.8) k/uL Creatinine (0.52-1.04) mg/dL Glucose (74-99) mg/dL POC Glucose (mg/dL) (70-110) mg/dL Plasma Lactic Acid Justus 2.4 H* (0.7-2.0) mmol/L Calcium (8.4-10.2) mg/dL Procalcitonin (0.02-0.09) ng/mL Urine Ketones Trace H (Negative) Urine Blood Moderate H (Negative) Urine Mucus Rare H (None) /hpf Influenza Type A (PCR) Detected A (Not Detectd) 11/28/22 11/28/22 11/28/22 Range/Units 06:03 07:48 07:48 Lymphocytes # 0.7 L (1.0-4.8) k/uL Creatinine (0.52-1.04) mg/dL Glucose (74-99) mg/dL POC Glucose (mg/dL) 153 H (70-110) mg/dL Plasma Lactic Acid Justus (0.7-2.0) mmol/L Calcium (8.4-10.2) mg/dL Procalcitonin 0.17 H (0.02-0.09) ng/mL Urine Ketones (Negative) Urine Blood (Negative) Urine Mucus (None) /hpf Influenza Type A (PCR) (Not Detectd) 11/28/22 11/28/22 Range/Units 07:48 11:45 Lymphocytes # (1.0-4.8) k/uL Creatinine 0.48 L (0.52-1.04) mg/dL Glucose 151 H (74-99) mg/dL POC Glucose (mg/dL) 168 H (70-110) mg/dL Plasma Lactic Acid Justus (0.7-2.0) mmol/L Calcium 8.1 L (8.4-10.2) mg/dL Procalcitonin (0.02-0.09) ng/mL Urine Ketones (Negative) Urine Blood (Negative) Urine Mucus (None) /hpf Influenza Type A (PCR) (Not Detectd) Microbiology - Last 24 Hours (Table) 11/27/22 10:12 Blood Culture - Final Blood Assessment and Plan (1) Positive blood culture Status: Acute Code(s): R78.81 - BACTEREMIA SNOMED Code(s): 917502260 (2) Influenza Status: Acute Code(s): J11.1 - FLU DUE TO UNIDENTIFIED INFLUENZA VIRUS W OTH RESP MANIFEST SNOMED Code(s): 7909704 Plan: 1patient with the positive blood culture with gram-positive cocci in this patient presented to hospital with acute influenza A and [employer] exacerbation with no evidence of pneumonia clinically chest x-ray has been negative patient currently do not have any evidence of cellulitis or joint swelling concerning for possible staph epi and likely skin contamination. 2we will hold on adding vancomycin at this point. 3continue the patient on Tamiflu steroids and bronchodilator. 4droplet isolation We will follow on clinical condition and cultures to further adjust medication if needed Thank you for this consultation we will follow the patient along with you Time with Patient: Greater than 30
[2022-11-29 06:21] LABS: Glucose,Whole Blood 145 mg/dL (70-110)
[2022-11-29] MEDS: INSULIN ASPART (NovoLOG) 100 UNIT/ML VIAL SQ SCH ×4 (06:52→21:17)
[2022-11-29] MEDS: LEVOTHYROXINE 125 MCG TAB PO SCH (06:54)
[2022-11-29] MEDS: methylPREDNISolone SOD SUCCI 125 MG/2 ML VIAL IV SCH ×4 (06:54→22:57)
[2022-11-29] MEDS: IPRATROPIUM-ALBUTEROL 3 ML NEB INHALATION SCH ×4 (08:25→20:23)
[2022-11-29] MEDS: FORMOTEROL FUMARATE 20 MCG/2 ML NEBU INHALATION SCH ×2 (08:25→20:23)
[2022-11-29] MEDS: BUDESONIDE 1 MG/2 ML NEBU INHALATION SCH ×2 (08:25→20:23)
[2022-11-29 08:36] LABS: Basophils % (A) 0 %; Eosinophils % (A) 0 %; HCT 38.6 % (34.0-46.0); HGB 12.8 gm/dL (11.4-16.0); Lymphocytes # (A) 1.4 k/uL (1.0-4.8); Lymphocytes % (A) 7 %; MCH 30.3 pg (25.0-35.0); MCHC 33.2 g/dL (31.0-37.0); MCV 91.3 fL (80.0-100.0); Mean Platelet Volume 8.7; Monocytes # (A) 0.4 k/uL (0-1.0); Monocytes % (A) 2 %; Neutrophils # (A) 18.9 k/uL (1.3-7.7); Neutrophils % (A) 90 %; Platelet Count 381 k/uL (150-450); RBC 4.23 m/uL (3.80-5.40); RDW 13.7 % (11.5-15.5); WBC 20.9 k/uL (3.8-10.6)
[2022-11-29] MEDS: FAMOTIDINE 20 MG TAB PO SCH ×2 (08:51→21:17)
[2022-11-29] MEDS: ASPIRIN 81 MG PO SCH (08:51)
[2022-11-29] MEDS: METOPROLOL TARTRATE 50 MG TAB PO SCH ×2 (08:51→21:18)
[2022-11-29] MEDS: MULTIVITAMINS, THERA 1 EACH TAB PO SCH (08:51)
[2022-11-29] MEDS: OSELTAMIVIR 75 MG CAP PO SCH ×2 (08:51→21:18)
[2022-11-29] MEDS: CLOPIDOGREL 75 MG TAB PO SCH (08:51)
[2022-11-29] MEDS: FLUoxetine HCL 20 MG CAP PO SCH (08:51)
[2022-11-29] MEDS: HEPARIN SODIUM,PORCINE/PF 5,000 UNIT/0.5 ML SYRINGE SQ SCH ×2 (08:54→21:17)
[2022-11-29 09:00] LABS: AST 31 U/L (14-36); African American GFR (CKD) >90 (>60 ml/min/1.73 sqM); Albumin 3.6 g/dL (3.5-5.0); Anion Gap 7 mmol/L; Blood Urea Nitrogen 18 mg/dL (7-17); Calcium 8.6 mg/dL (8.4-10.2); Carbon Dioxide 26 mmol/L (22-30); Chloride 105 mmol/L (98-107); Glucose 158 mg/dL (74-99); Non-African American GFR(CKD) >90 (>60 ml/min/1.73 sqM); Potassium 4.2 mmol/L (3.5-5.1); Sodium 138 mmol/L (137-145); Total Bilirubin 0.2 mg/dL (0.2-1.3); Total Protein 6.5 g/dL (6.3-8.2)
[2022-11-29 09:01] LABS: ALT 34 U/L (4-34); Alkaline Phosphatase 141 U/L (38-126)
--- NOTE | 2022-11-29 09:31 | P.PN ---
Subjective Progress Note Date: 11/29/22 Principal diagnosis: Atrial tachycardia The patient is a pleasant 71-year-old female patient with a past medical history significant for CAD with prior CABG and stenting as well as hypertension and dyslipidemia who was admitted to the hospital complaining of shortness of breath. The patient presented to the emergency department complaining of fever and chills and cough not productive of any sputum. No symptoms of chest pain or chest discomfort. No dizziness or lightheadedness and no feeling of heart racing or fluttering. Further investigation including EKG showed what it seems to be atrial tachycardia. Subsequently the patient was started on Cardizem IV and she converted to normal sinus mechanism and since then she has been maintaining normal sinus mechanism. She underwent a heart catheterization last in 2018 and that showed severe triple vessel CAD with patent WILLSON to LAD and severe disease involving the SVG to LCx and SVG to RCA. Both were stented. During this time she underwent also investigation chest x-ray and that showed no acute abnormalities. Troponin came in to be unremarkable. The rest of the blood work came in to be unremarkable. She was also seen by the pulmonary service. The patient was tested positive for influenza A. Currently she is on isolation. 11/29/2022 The patient seems to be stable from a cardiovascular standpoint of view. No work because of atrial tachycardia. The oxygen saturations normal on room air. Blood pressure and heart rate are within normal limits. No symptoms of chest pain or chest discomfort. Currently she is on steroids. WBC is elevated likely because of that. Objective - Vital Signs Vital signs: Vital Signs Temp 97.8 F 11/29/22 08:55 Pulse 86 11/29/22 08:55 Resp 18 11/29/22 08:55 BP 132/76 11/29/22 08:55 Pulse Ox 95 11/29/22 08:55 FiO2 Intake & Output 11/28/22 11/29/22 11/29/22 18:59 06:59 18:59 Intake Total 240 Output Total 600 300 Balance -600 -60 Intake: Oral 240 Output: Urine 600 300 Other: Voiding Method External Catheter External Catheter # Voids 1 0 # Bowel Movements 1 - Constitutional General appearance: Present: no acute distress - Labs CBC & Chem 7: 11/29/22 07:54 11/29/22 07:54 Labs: Abnormal Lab Results - Last 24 Hours (Table) 11/28/22 11/28/22 11/28/22 Range/Units 07:48 11:45 16:30 WBC (3.8-10.6) k/uL Neutrophils # (1.3-7.7) k/uL BUN (7-17) mg/dL Glucose (74-99) mg/dL POC Glucose (mg/dL) 168 H 170 H (70-110) mg/dL Alkaline Phosphatase (38-126) U/L Procalcitonin 0.17 H (0.02-0.09) ng/mL 11/28/22 11/29/22 11/29/22 Range/Units 20:25 06:19 07:54 WBC 20.9 H (3.8-10.6) k/uL Neutrophils # 18.9 H (1.3-7.7) k/uL BUN (7-17) mg/dL Glucose (74-99) mg/dL POC Glucose (mg/dL) 221 H 145 H (70-110) mg/dL Alkaline Phosphatase (38-126) U/L Procalcitonin (0.02-0.09) ng/mL 11/29/22 Range/Units 07:54 WBC (3.8-10.6) k/uL Neutrophils # (1.3-7.7) k/uL BUN 18 H (7-17) mg/dL Glucose 158 H (74-99) mg/dL POC Glucose (mg/dL) (70-110) mg/dL Alkaline Phosphatase 141 H (38-126) U/L Procalcitonin (0.02-0.09) ng/mL Microbiology - Last 24 Hours (Table) 11/27/22 10:12 Blood Culture Gram Stain - Preliminary Blood 11/27/22 10:12 Blood Culture - Final Blood 11/27/22 10:12 Blood Culture Gram Stain - Preliminary Blood Blood Culture - Preliminary Staphylococcus epidermidis 11/27/22 10:12 Blood Culture - Final Blood Assessment and Plan Assessment: Assessment Influenza A infection Shortness of breath secondary to the above Atrial tachycardia likely to be triggered by the influenza CAD as described above Multiple comorbid conditions Plan Continue the current medical regimen Follow-up with the patient
[2022-11-29 12:00] LABS: Glucose,Whole Blood 179 mg/dL (70-110)
--- NOTE | 2022-11-29 12:11 | P.PN ---
Subjective Progress Note Date: 11/29/22 Evaluating this patient today on 11/27/2022 in the ER as an overflow patient. This is a pleasant 71-year-old female, in no acute distress, on 4 L nasal cannula. Patient's chief complaints are shortness of breath, headache, chest palpitations for 2 days. Patient denies any cough, chest pain, syncope. On arrival to the ER, patient tested positive for influenza A. She is febrile with a T-max of 101.6F. She is currently receiving a course of Tamiflu. She was not vaccinated for the flu. Her heart rate is also quite elevated at 144 bpm, she is receiving Cardizem at 5 mg per hour. Blood pressure is normotensive. She is received 2 L normal saline bolus. Cardiology is consulted. Her medical history is significant for COPD, Brezti maintenance and Ventolin rescue inhalers, current lifetime smoker, 40 pack years, not requiring any home oxygen, multiple previous myocardial infarctions with last stent placed 02/26/2018, coronary artery bypass grafting, hypertension. Her primary care provider is Dr. Conte, and she sees Dr. Calles for management of her COPD. Chest x-ray from today showed no acute cardiopulmonary process. Her CBC from today shows mild leukocytosis with a WBC count of 12.8, hemoglobin 13.5, hematocrit 39.7, platelets 358,000. BMP results were stable with a sodium 139, potassium 3.5, chloride 104, serum C CO2 28, BUN 8, creatinine 0.6, glucose 113. Troponins negative 1, BNP was insignificant, lactic acid mildly elevated at 2.4. She was fluid resuscitated. She's currently maintained on DuoNeb inhalation and IV Solu-Medrol. Progress note dated 11/28/2022. 71-year-old female seen in the emergency department yesterday. The patient had significant tachycardia, and was very short of breath. Currently, she is seen in room 382. She is on 2 L of oxygen. Her heart rate is below 100. She's not receiving any IV fluids. She is feeling much better. Labs include a white count 7.9, hemoglobin 12.3, hematocrit 38.4, and a platelet count of 321,000. Sodium 137, potassium 4.1, chlorides 107, CO2 26, BUN 7, creatinine 0.48. Pro- calcitonin level is 0.17. The patient's chest x-ray was normal. The patient is seen today 11/29/2022 in follow-up on the selective care unit. She is currently sitting up in bed. Awake and alert in no acute distress. She is better today compared to yesterday. Maintaining O2 saturations in the 90s on room air. She is feeling a little shaky. Follow-up blood culture revealing no growth. White count 20.9. Hemoglobin 12.8. Sodium 138. Potassium 4.2. BUN 18. Creatinine 0.56. Glucose 158. She is continued on DuoNeb inhalations, Pulmicort and Perforomist inhalations, IV Solu-Medrol. Continued on Tamiflu. Heparin for DVT prophylaxis. Objective - Vital Signs Vital signs: Vital Signs Temp 97.8 F 11/29/22 08:55 Pulse 84 11/29/22 11:38 Resp 18 11/29/22 08:55 BP 132/76 11/29/22 08:55 Pulse Ox 95 11/29/22 08:55 FiO2 Intake & Output 11/28/22 11/29/22 11/29/22 18:59 06:59 18:59 Intake Total 240 Output Total 600 300 Balance -600 -60 Intake: Oral 240 Output: Urine 600 300 Other: Voiding Method External Catheter External Catheter External Catheter # Voids 1 0 # Bowel Movements 1 - Exam GENERAL EXAM: Alert, pleasant 71-year-old female, on room air, comfortable in no apparent distress. HEAD: Normocephalic. EYES: Normal reaction of pupils, equal size. NOSE: Clear with pink turbinates. THROAT: No erythema or exudates. NECK: No masses, no JVD. CHEST: No chest wall deformity. LUNGS: Equal air entry with few scattered rhonchi, end expiratory wheeze. CVS: S1 and S2 normal with no audible murmur, regular rhythm. ABDOMEN: No hepatosplenomegaly, normal bowel sounds, no guarding or rigidity. SPINE: No scoliosis or deformity SKIN: No rashes CENTRAL NERVOUS SYSTEM: No focal deficits, tone is normal in all 4 extremities. EXTREMITIES: There is no peripheral edema. No clubbing, no cyanosis. Peripheral pulses are intact. - Labs CBC & Chem 7: 11/29/22 07:54 11/29/22 07:54 Labs: Abnormal Lab Results - Last 24 Hours (Table) 11/28/22 11/28/22 11/29/22 Range/Units 16:30 20:25 06:19 WBC (3.8-10.6) k/uL Neutrophils # (1.3-7.7) k/uL BUN (7-17) mg/dL Glucose (74-99) mg/dL POC Glucose (mg/dL) 170 H 221 H 145 H (70-110) mg/dL Alkaline Phosphatase (38-126) U/L 11/29/22 11/29/22 11/29/22 Range/Units 07:54 07:54 11:48 WBC 20.9 H (3.8-10.6) k/uL Neutrophils # 18.9 H (1.3-7.7) k/uL BUN 18 H (7-17) mg/dL Glucose 158 H (74-99) mg/dL POC Glucose (mg/dL) 179 H (70-110) mg/dL Alkaline Phosphatase 141 H (38-126) U/L Microbiology - Last 24 Hours (Table) 11/27/22 10:12 Blood Culture Gram Stain - Final Blood Blood Culture - Final Staphylococcus epidermidis 11/27/22 10:12 Blood Culture Gram Stain - Preliminary Blood 11/27/22 10:12 Blood Culture - Final Blood 11/27/22 10:12 Blood Culture - Final Blood Assessment and Plan Assessment: Influenza A infection. Acute COPD exacerbation secondary to above. Acute hypoxic respiratory failure. Atrial tachycardia. History of myocardial infarction, S/P stent, 2018. History of coronary coronary artery bypass graft. Hyperlipidemia. Hypertension. Hypothyroidism. Plan: The patient was seen and evaluated Currently stable and on room air Continue the current treatment plan Probable discharge in the a.m. We'll continue to followI have personally seen and examined the patient, performed the documentation and the assessment and plan as written. Number of minutes spent on the visit: 10.
--- NOTE | 2022-11-29 12:43 | P.PN ---
Subjective This is a pleasant 71 years old female with past medical history of COPD, hypertension, kidney stone, history of coronary artery disease status post stent and bypass, nicotine dependence and depression Presents because of dyspnea over few days duration, really got worse over the last 2 days Associated with dry cough with no motor for phlegm Patient complaining from chest pain with coughing She denies any other GI or urinary symptoms, no abdominal pain vomiting diarrhea, no dysuria or change in urgency or frequency. No headache dizziness weakness numbness She smokes about 6 cigarettes per day, patient is counseled and she agrees to quit. No alcohol or illicit drugs On admission she has a fever of 101.6. She is tachycardic around 144, tachypneic with a breathing rate at 22, blood pressure 160/72, patient is saturating 92% on 4 L Genasal cannula WBC is 12.8, rest of CBC, INR is unremarkable D-dimer -0.51 BMP and liver enzymes are unremarkable ProBNP 440 ago. Troponin is negative. Urine analysis showing RBCs 5 and no evidence of infection Patient has positive for influenza A, call with and RSV are negative Chest x-ray: No acute cardiopulmonary process EKG showing sinus tachycardia with occasional PVCs at a rate of 160, QTC 479 at Emergency room patient received Cardizem, ibuprofen, Tylenol, normal saline and Tamiflu Patient currently on Cardizem drip 5 mg/h 11/28/2022 Patient respiratory status is improving as she was admitted with influenza A infection with no overt pneumonia but with hypoxia. Thought secondary to acute COPD exacerbation, she is less tachypneic and required 3 units of oxygen via nasal cannula. Currently she is kept with IV Solu-Medrol 60 mg and Tamiflu. Her tachycardia improved also on heart rate around 100, mostly secondary to her flow as an infection. Her Cardizem drip was stopped and she is currently on home dose of metoprolol 50 mg. No more fever. The [employer] back to normal at 7.9. 11/29/2022. Patient states that her breathing is easier but she still have some wheezing and difficulty in her own breath. She was in 2 L oxygen this morning. Heart rate is better controlled. looks stable. She remains on Solu-Medrol 40 mg, Tamiflu. Possible discharge in 24-48 hours if she keeps improving Objective - Vital Signs Vital signs: Vital Signs Temp 97.8 F 11/29/22 08:55 Pulse 86 11/29/22 08:55 Resp 18 11/29/22 08:55 BP 132/76 11/29/22 08:55 Pulse Ox 95 11/29/22 08:55 FiO2 Intake & Output 11/28/22 11/29/22 11/29/22 18:59 06:59 18:59 Intake Total 240 Output Total 600 300 Balance -600 -60 Intake: Oral 240 Output: Urine 600 300 Other: Voiding Method External Catheter External Catheter # Voids 1 0 # Bowel Movements 1 - Exam GENERAL: The patient is alert and oriented x3, not in any acute distress. Well developed, well nourished. HEENT: Pupils are round and equally reacting to light. EOMI. No scleral icterus. No conjunctival pallor. Normocephalic, atraumatic. No pharyngeal erythema. No thyromegaly. CARDIOVASCULAR: S1 and S2 present. No murmurs, rubs, or gallops. PULMONARY: Chest is clear to auscultation, bilateral scattered no wheezing. No crackles. ABDOMEN: Soft, nontender, nondistended, normoactive bowel sounds. No palpable organomegaly. MUSCULOSKELETAL: No joint swelling or deformity. EXTREMITIES: No cyanosis, clubbing, or pedal edema. NEUROLOGICAL: Gross neurological examination did not reveal any focal deficits. SKIN: No rashes. no petechiae. - Labs CBC & Chem 7: 11/29/22 07:54 11/29/22 07:54 Labs: Abnormal Lab Results - Last 24 Hours (Table) 11/28/22 11/28/22 11/28/22 Range/Units 07:48 11:45 16:30 WBC (3.8-10.6) k/uL Neutrophils # (1.3-7.7) k/uL BUN (7-17) mg/dL Glucose (74-99) mg/dL POC Glucose (mg/dL) 168 H 170 H (70-110) mg/dL Alkaline Phosphatase (38-126) U/L Procalcitonin 0.17 H (0.02-0.09) ng/mL 11/28/22 11/29/22 11/29/22 Range/Units 20:25 06:19 07:54 WBC 20.9 H (3.8-10.6) k/uL Neutrophils # 18.9 H (1.3-7.7) k/uL BUN (7-17) mg/dL Glucose (74-99) mg/dL POC Glucose (mg/dL) 221 H 145 H (70-110) mg/dL Alkaline Phosphatase (38-126) U/L Procalcitonin (0.02-0.09) ng/mL 11/29/22 Range/Units 07:54 WBC (3.8-10.6) k/uL Neutrophils # (1.3-7.7) k/uL BUN 18 H (7-17) mg/dL Glucose 158 H (74-99) mg/dL POC Glucose (mg/dL) (70-110) mg/dL Alkaline Phosphatase 141 H (38-126) U/L Procalcitonin (0.02-0.09) ng/mL Microbiology - Last 24 Hours (Table) 11/27/22 10:12 Blood Culture Gram Stain - Preliminary Blood 11/27/22 10:12 Blood Culture - Final Blood 11/27/22 10:12 Blood Culture Gram Stain - Preliminary Blood Blood Culture - Preliminary Staphylococcus epidermidis 11/27/22 10:12 Blood Culture - Final Blood Assessment and Plan Assessment: Acute hypoxic respiratory failure Sepsis with fever and leukocytosis, secondary to above Sinus tachycardia Acute influenza A infection COPD with exacerbation Hypertension history of coronary artery disease status post stent and bypass nicotine dependence Exactly, depression, not an active issue Plan: Continue with Tamiflu Continue with steroids, currently on IV Solu-Medrol 60 mg Continue with Bronchodilator and oxygen Pulmonary consult Continue with metoprolol, sales representative trainee on the case Labs and medication were reviewed.. Continue same treatment. Continue with symptomatic treatment. Resume home medication. Monitor lytes and vitals. DVT and GI prophylaxis. Further recommendations as per clinical course of the patient DVT prophylaxis: Subcutaneous heparin GI Prophylaxis: Pepcid PT/OT: Pending Prognosis is guarded
[2022-11-29 16:35] LABS: Glucose,Whole Blood 196 mg/dL (70-110)
[2022-11-29] MEDS: guaiFENesin-DM 100-10MG/5ML 10 ML CUP PO PRN (17:06)
[2022-11-29 20:16] LABS: Glucose,Whole Blood 235 mg/dL (70-110)
[2022-11-29] MEDS: ATORVASTATIN 80 MG TAB PO SCH (21:17)
[2022-11-29] MEDS: ACETAMINOPHEN TAB 325 MG TAB PO PRN (22:16)
[2022-11-30] MEDS: ACETAMINOPHEN TAB 325 MG TAB PO PRN (04:10)
[2022-11-30] MEDS: LEVOTHYROXINE 125 MCG TAB PO SCH (04:10)
[2022-11-30] MEDS: methylPREDNISolone SOD SUCCI 125 MG/2 ML VIAL IV SCH (04:11)
[2022-11-30] MEDS: guaiFENesin-DM 100-10MG/5ML 10 ML CUP PO PRN (04:17)
[2022-11-30 06:11] LABS: Glucose,Whole Blood 145 mg/dL (70-110)
[2022-11-30] MEDS: INSULIN ASPART (NovoLOG) 100 UNIT/ML VIAL SQ SCH (06:18)
[2022-11-30] MEDS: IPRATROPIUM-ALBUTEROL 3 ML NEB INHALATION SCH ×2 (07:22→11:35)
[2022-11-30] MEDS: BUDESONIDE 1 MG/2 ML NEBU INHALATION SCH (07:22)
[2022-11-30] MEDS: FORMOTEROL FUMARATE 20 MCG/2 ML NEBU INHALATION SCH (07:22)
--- NOTE | 2022-11-30 07:50 | P.PN ---
Subjective Progress Note Date: 11/30/22 Principal diagnosis: Atrial tachycardia The patient is a pleasant 71-year-old female patient with a past medical history significant for CAD with prior CABG and stenting as well as hypertension and dyslipidemia who was admitted to the hospital complaining of shortness of breath. The patient presented to the emergency department complaining of fever and chills and cough not productive of any sputum. No symptoms of chest pain or chest discomfort. No dizziness or lightheadedness and no feeling of heart racing or fluttering. Further investigation including EKG showed what it seems to be atrial tachycardia. Subsequently the patient was started on Cardizem IV and she converted to normal sinus mechanism and since then she has been maintaining normal sinus mechanism. She underwent a heart catheterization last in 2018 and that showed severe triple vessel CAD with patent WILLSON to LAD and severe disease involving the SVG to LCx and SVG to RCA. Both were stented. During this time she underwent also investigation chest x-ray and that showed no acute abnormalities. Troponin came in to be unremarkable. The rest of the blood work came in to be unremarkable. She was also seen by the pulmonary service. The patient was tested positive for influenza A. Currently she is on isolation. 11/29/2022 The patient seems to be stable from a cardiovascular standpoint of view. No work because of atrial tachycardia. The oxygen saturations normal on room air. Blood pressure and heart rate are within normal limits. No symptoms of chest pain or chest discomfort. Currently she is on steroids. WBC is elevated likely because of that. 11/30/2022 The patient was seen and evaluated this morning. She is feeling better indeterminable shortness of breath. No symptoms of chest pain or chest discomfort and she has been maintaining normal sinus mechanism. From the cardiac standpoint, the patient can be discharged home and will follow-up with the patient on when necessary. Objective - Vital Signs Vital signs: Vital Signs Temp 97.5 F L 11/30/22 04:00 Pulse 76 11/30/22 07:44 Resp 18 11/30/22 04:00 BP 136/82 11/30/22 04:00 Pulse Ox 95 11/30/22 04:00 FiO2 Intake & Output 11/29/22 11/30/22 11/30/22 18:59 06:59 18:59 Intake Total 660 Output Total 300 Balance 360 Intake: Oral 660 Output: Urine 300 Other: Voiding Method Toilet Toilet # Voids 1 2 - Constitutional General appearance: Present: no acute distress - Respiratory Respiratory: bilateral: diminished - Cardiovascular Rhythm: regular - Labs CBC & Chem 7: 11/29/22 07:54 11/29/22 07:54 Labs: Abnormal Lab Results - Last 24 Hours (Table) 11/29/22 11/29/22 11/29/22 Range/Units 07:54 07:54 11:48 WBC 20.9 H (3.8-10.6) k/uL Neutrophils # 18.9 H (1.3-7.7) k/uL BUN 18 H (7-17) mg/dL Glucose 158 H (74-99) mg/dL POC Glucose (mg/dL) 179 H (70-110) mg/dL Alkaline Phosphatase 141 H (38-126) U/L 11/29/22 11/29/22 11/30/22 Range/Units 16:21 20:15 06:10 WBC (3.8-10.6) k/uL Neutrophils # (1.3-7.7) k/uL BUN (7-17) mg/dL Glucose (74-99) mg/dL POC Glucose (mg/dL) 196 H 235 H 145 H (70-110) mg/dL Alkaline Phosphatase (38-126) U/L Microbiology - Last 24 Hours (Table) 11/27/22 10:12 Blood Culture Gram Stain - Final Blood Blood Culture - Final Staphylococcus epidermidis Assessment and Plan Assessment: Assessment Influenza A infection Shortness of breath secondary to the above Atrial tachycardia likely to be triggered by the influenza CAD as described above Multiple comorbid conditions Plan Continue the current medical regimen The patient can be discharged home
[2022-11-30 08:11] LABS: Basophils # (A) 0.1 k/uL (0-0.2); Basophils % (A) 0 %; Eosinophils % (A) 0 %; HCT 37.2 % (34.0-46.0); HGB 12.2 gm/dL (11.4-16.0); Hypochromasia Slight; Lymphocytes # (A) 1.3 k/uL (1.0-4.8); Lymphocytes % (A) 6 %; MCH 30.4 pg (25.0-35.0); MCHC 32.7 g/dL (31.0-37.0); MCV 92.9 fL (80.0-100.0); Mean Platelet Volume 8.3; Monocytes # (A) 0.6 k/uL (0-1.0); Monocytes % (A) 3 %; Neutrophils # (A) 18.3 k/uL (1.3-7.7); Neutrophils % (A) 89 %; Platelet Count 393 k/uL (150-450); RBC 4.01 m/uL (3.80-5.40); RDW 13.4 % (11.5-15.5); WBC 20.6 k/uL (3.8-10.6)
[2022-11-30] MEDS: FLUoxetine HCL 20 MG CAP PO SCH (10:25)
[2022-11-30] MEDS: FAMOTIDINE 20 MG TAB PO SCH (10:25)
[2022-11-30] MEDS: MULTIVITAMINS, THERA 1 EACH TAB PO SCH (10:25)
[2022-11-30] MEDS: ASPIRIN 81 MG PO SCH (10:25)
[2022-11-30] MEDS: CLOPIDOGREL 75 MG TAB PO SCH (10:25)
[2022-11-30] MEDS: HEPARIN SODIUM,PORCINE/PF 5,000 UNIT/0.5 ML SYRINGE SQ SCH (10:25)
[2022-11-30] MEDS: OSELTAMIVIR 75 MG CAP PO SCH (10:26)
[2022-11-30] MEDS: METOPROLOL TARTRATE 50 MG TAB PO SCH (10:32)
[2022-11-30 10:44] VITALS: BP 124/74; RESP 17; TEMP 98.3
[2022-11-30 11:38] VITALS: PULSE 76
--- NOTE | 2022-11-30 14:22 | P.PN ---
Subjective Progress Note Date: 11/30/22 Evaluating this patient today on 11/27/2022 in the ER as an overflow patient. This is a pleasant 71-year-old female, in no acute distress, on 4 L nasal cannula. Patient's chief complaints are shortness of breath, headache, chest palpitations for 2 days. Patient denies any cough, chest pain, syncope. On arrival to the ER, patient tested positive for influenza A. She is febrile with a T-max of 101.6F. She is currently receiving a course of Tamiflu. She was not vaccinated for the flu. Her heart rate is also quite elevated at 144 bpm, she is receiving Cardizem at 5 mg per hour. Blood pressure is normotensive. She is received 2 L normal saline bolus. Cardiology is consulted. Her medical history is significant for COPD, Brezti maintenance and Ventolin rescue inhalers, current lifetime smoker, 40 pack years, not requiring any home oxygen, multiple previous myocardial infarctions with last stent placed 02/26/2018, coronary artery bypass grafting, hypertension. Her primary care provider is Dr. Conte, and she sees Dr. Calles for management of her COPD. Chest x-ray from today showed no acute cardiopulmonary process. Her CBC from today shows mild leukocytosis with a WBC count of 12.8, hemoglobin 13.5, hematocrit 39.7, platelets 358,000. BMP results were stable with a sodium 139, potassium 3.5, chloride 104, serum C CO2 28, BUN 8, creatinine 0.6, glucose 113. Troponins negative 1, BNP was insignificant, lactic acid mildly elevated at 2.4. She was fluid resuscitated. She's currently maintained on DuoNeb inhalation and IV Solu-Medrol. Progress note dated 11/28/2022. 71-year-old female seen in the emergency department yesterday. The patient had significant tachycardia, and was very short of breath. Currently, she is seen in room 382. She is on 2 L of oxygen. Her heart rate is below 100. She's not receiving any IV fluids. She is feeling much better. Labs include a white count 7.9, hemoglobin 12.3, hematocrit 38.4, and a platelet count of 321,000. Sodium 137, potassium 4.1, chlorides 107, CO2 26, BUN 7, creatinine 0.48. Pro- calcitonin level is 0.17. The patient's chest x-ray was normal. The patient is seen today 11/29/2022 in follow-up on the selective care unit. She is currently sitting up in bed. Awake and alert in no acute distress. She is better today compared to yesterday. Maintaining O2 saturations in the 90s on room air. She is feeling a little shaky. Follow-up blood culture revealing no growth. White count 20.9. Hemoglobin 12.8. Sodium 138. Potassium 4.2. BUN 18. Creatinine 0.56. Glucose 158. She is continued on DuoNeb inhalations, Pulmicort and Perforomist inhalations, IV Solu-Medrol. Continued on Tamiflu. Heparin for DVT prophylaxis. The patient is seen today 11/30/2022 in follow-up on the selective care unit. She is sitting up in a chair at the bedside. Awake and alert in no acute distress. Feeling nearly back to her baseline. Maintaining good O2 saturations in the 90s on room air. White count 20.6. Hemoglobin 12.2. Platelets 393. She is continued on DuoNeb inhalations, Pulmicort and Perforomist inhalations, Robitussin, Tamiflu. Objective - Vital Signs Vital signs: Vital Signs Temp 98.3 F 11/30/22 08:00 Pulse 76 11/30/22 11:45 Resp 17 11/30/22 08:00 BP 124/74 11/30/22 08:00 Pulse Ox 95 11/30/22 08:00 FiO2 Intake & Output 11/29/22 11/30/22 11/30/22 18:59 06:59 18:59 Intake Total 660 180 Output Total 300 Balance 360 180 Intake: Oral 660 180 Output: Urine 300 Other: Voiding Method Toilet Toilet # Voids 1 2 - Exam GENERAL EXAM: Alert, pleasant 71-year-old female, sitting up at the bedside, on room air, comfortable in no apparent distress. HEAD: Normocephalic. EYES: Normal reaction of pupils, equal size. NOSE: Clear with pink turbinates. THROAT: No erythema or exudates. NECK: No masses, no JVD. CHEST: No chest wall deformity. LUNGS: Equal air entry with few scattered rhonchi, end expiratory wheeze. CVS: S1 and S2 normal with no audible murmur, regular rhythm. ABDOMEN: No hepatosplenomegaly, normal bowel sounds, no guarding or rigidity. SPINE: No scoliosis or deformity SKIN: No rashes CENTRAL NERVOUS SYSTEM: No focal deficits, tone is normal in all 4 extremities. EXTREMITIES: There is no peripheral edema. No clubbing, no cyanosis. Peripheral pulses are intact. - Labs CBC & Chem 7: 11/30/22 07:10 11/29/22 07:54 Labs: Abnormal Lab Results - Last 24 Hours (Table) 11/29/22 11/29/22 11/30/22 Range/Units 16:21 20:15 06:10 WBC (3.8-10.6) k/uL Neutrophils # (1.3-7.7) k/uL POC Glucose (mg/dL) 196 H 235 H 145 H (70-110) mg/dL 11/30/22 Range/Units 07:10 WBC 20.6 H (3.8-10.6) k/uL Neutrophils # 18.3 H (1.3-7.7) k/uL POC Glucose (mg/dL) (70-110) mg/dL Microbiology - Last 24 Hours (Table) 11/27/22 10:12 Blood Culture Gram Stain - Final Blood Blood Culture - Final Micrococcus species 11/27/22 10:12 Blood Culture Gram Stain - Final Blood Blood Culture - Final Staphylococcus epidermidis Assessment and Plan Assessment: Influenza A infection. Acute COPD exacerbation secondary to above. Acute hypoxic respiratory failure. Atrial tachycardia. History of myocardial infarction, S/P stent, 2018. History of coronary coronary artery bypass graft. Hyperlipidemia. Hypertension. Hypothyroidism. Plan: The patient was seen and evaluated Currently stable and on room air Cleared for discharge from the pulmonary standpoint Complete her course of Tamiflu Follow-up in the office in 1 week We'll continue to followI have personally seen and examined the patient, performed the documentation and the assessment and plan as written. Number of minutes spent on the visit: 10.
--- NOTE | 2022-11-30 15:19 | P.PN ---
Subjective Progress Note Date: 11/29/22 Principal diagnosis: Acute influenza A positive blood culture Patient is a 71-year-old female with a past medical history significant for hypertension COPD presenting to the ER yesterday morning for evaluation of increasing shortness of breath , patient has been diagnosed with acute influenza A patient also have a positive blood culture with gram-positive cocci no finalized and staph epi. On today's evaluation that is 11/29/2022, the patient denies having any fever or any chills, the patient is breathing slightly comfortably today, patient denies having any chest pain no worsening cough or sputum production no nausea no vomiting no abdominal pain or diarrhea Objective - Vital Signs Vital signs: Vital Signs Temp 97.8 F 11/29/22 08:55 Pulse 84 11/29/22 11:38 Resp 18 11/29/22 08:55 BP 132/76 11/29/22 08:55 Pulse Ox 95 11/29/22 08:55 FiO2 Intake & Output 11/28/22 11/29/22 11/29/22 18:59 06:59 18:59 Intake Total 240 Output Total 600 300 Balance -600 -60 Intake: Oral 240 Output: Urine 600 300 Other: Voiding Method External Catheter External Catheter External Catheter # Voids 1 0 # Bowel Movements 1 - Exam GENERAL DESCRIPTION: An elderly female lying in bed in no distress RESPIRATORY SYSTEM: Unlabored breathing , decreased breath sounds at bases HEART: S1 S2 regular rate and rhythm , ABDOMEN: Soft , no tenderness EXTREMITIES: No edema feet - Labs CBC & Chem 7: 11/30/22 07:10 11/29/22 07:54 Labs: Abnormal Lab Results - Last 24 Hours (Table) 11/28/22 11/28/22 11/29/22 Range/Units 16:30 20:25 06:19 WBC (3.8-10.6) k/uL Neutrophils # (1.3-7.7) k/uL BUN (7-17) mg/dL Glucose (74-99) mg/dL POC Glucose (mg/dL) 170 H 221 H 145 H (70-110) mg/dL Alkaline Phosphatase (38-126) U/L 11/29/22 11/29/22 11/29/22 Range/Units 07:54 07:54 11:48 WBC 20.9 H (3.8-10.6) k/uL Neutrophils # 18.9 H (1.3-7.7) k/uL BUN 18 H (7-17) mg/dL Glucose 158 H (74-99) mg/dL POC Glucose (mg/dL) 179 H (70-110) mg/dL Alkaline Phosphatase 141 H (38-126) U/L Microbiology - Last 24 Hours (Table) 11/27/22 10:12 Blood Culture Gram Stain - Final Blood Blood Culture - Final Staphylococcus epidermidis 11/27/22 10:12 Blood Culture Gram Stain - Preliminary Blood 11/27/22 10:12 Blood Culture - Final Blood 11/27/22 10:12 Blood Culture - Final Blood Assessment and Plan (1) Influenza Status: Acute Code(s): J11.1 - FLU DUE TO UNIDENTIFIED INFLUENZA VIRUS W OTH RESP MANIFEST SNOMED Code(s): 2414183 (2) Positive blood culture Status: Acute Code(s): R78.81 - BACTEREMIA SNOMED Code(s): 084428382 Plan: 1patient with the positive blood culture with gram-positive cocci in this patient presented to hospital with acute influenza A and 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 2patient blood culture with staph epi and micrococcus likely contaminate none for vancomycin. 3patient seemed to showing clinical improvement and will continue the patient on Tamiflu steroids and bronchodilator. 4droplet isolation Time with Patient: Less than 30
== END 2022-11-30 11:55 | disposition home or self-care (01) | DRG 871 ==
LOC: EC 09:25 → 3SCARD 15:29
PROVIDERS: ADMIT Family Medicine; ATTEND Family Medicine
DX: A41.50 Gram-negative sepsis, unspecified (principal); J96.01 Acute respiratory failure with hypoxia; I47.1 Supraventricular tachycardia; J44.1 Chronic obstructive pulmonary disease with (acute) exacerbation; J10.1 Influenza due to other identified influenza virus with other respiratory manifestations; Z20.822 Contact with and (suspected) exposure to COVID-19; E03.9 Hypothyroidism, unspecified; Z79.890 Hormone replacement therapy; E78.5 Hyperlipidemia, unspecified; F17.210 Nicotine dependence, cigarettes, uncomplicated; F32.A Depression, unspecified; F41.9 Anxiety disorder, unspecified; I10 Essential (primary) hypertension; I25.10 Atherosclerotic heart disease of native coronary artery without angina pectoris; I25.2 Old myocardial infarction; I49.3 Ventricular premature depolarization; Z79.02 Long term (current) use of antithrombotics/antiplatelets; Z79.82 Long term (current) use of aspirin; Z79.899 Other long term (current) drug therapy; Z87.442 Personal history of urinary calculi; Z90.710 Acquired absence of both cervix and uterus; Z95.5 Presence of coronary angioplasty implant and graft; Z90.49 Acquired absence of other specified parts of digestive tract
CPT/HCPCS: 36415; 71046; 80048; 80053; 81001; 83605; 83735; 83880; 84145; 84439; 84443; 84481; 84484; 85025; 85379; 85610; 85730; 87040; 87636; 93005; 94640; 94760; 96361; 96374; 96375; 99291

== ENCOUNTER → 2023-05-27 | Outpatient (CLI) | payer MEDICARE ==
--- NOTE | 2023-05-27 15:59 | P.SLEEP ---
History of Present Illness DATE: 05/27/2023 CONSULTATION/NEW PATIENT EVALUATION HISTORY OF PRESENT ILLNESS/SLEEP-WAKE EVALUATION: 72 year old lady had been ev aluated in the sleep center for possible obstructive sleep apnea hypopnea syndrome. Patient had home sleep apnea test 2 years ago but results was not conclusive according to patient. SLEEP SCHEDULE: Usually sleep schedule from a 30 p.m. to 8 AM. FALLING ASLEEP: Sometimes patient has difficulties with falling asleep, reading and bedroom. DURING SLEEP: Patient snores, awakenings from's sleep 4 times with nocturia, dry mouth, episodes of palpitation, heartburn and sweating. No history of hypnogogical hallucinations, sleep paralysis, or cataplexy. DURING THE DAY/WAKE STATE: In the morning patient wake up tired, has problems with memory, concentration, depression and anxiety. [place] sleepiness scale is 9. Patient takes nap at noon time. PAST MEDICAL HISTORY: Hypertension, hypothyroidism, COPD, coronary artery disease, hyperlipidemia, TIA, acid reflux. PAST SURGICAL HISTORY: CABG, stents insertions to coronary arteries. MEDICATIONS: Reviewed, Lipitor, Synthroid, metoprolol, aspirin, Prozac, albuterol. SOCIAL HISTORY: History of smoking for 50 pack years, quit smoking for about 6 months ago, no alcohol consumption. FAMILY HISTORY: Hypertension, heart problems, snoring, cancer. REVIEW OF SYSTEMS: Snoring, multiple awakenings from sleep. No fevers. No double vision. No recent chest pain. No shortness of breath. No abdominal pain. No bleeding episodes. No blood in urine. No seizure episodes. PHYSICAL EXAMINATION: GENERAL: A pleasant patient without any distress. VITAL SIGNS: BP 119/79, HR 96, RR 12, weight 129 pounds, height 4 foot 11 inches, body mass index 25.6. HEENT: PERRLA, EOMI. Evaluation of oropharynx showed tongue protrudes midline, low position of soft palate Mallampati 4. NECK: Supple. No JVD. Thyroid is not palpable. 13 inches in circumference. LUNGS: Clear to percussion and to auscultation. Good air exchange. Few wheezing and rhonchi. HEART: S1, S2 regular. No murmurs, gallops or rubs. ABDOMEN: Soft and nontender. Bowel sounds are present. No organomegaly appreciated. EXTREMITIES: No clubbing or cyanosis. ELEVATORS INSPECTOR: Awake, alert, and oriented x3. Cranial nerves 2 to 7 intact. There is no fasciculation or atrophy noted. No focal deficits observed. ASSESSMENT: 1. Snoring, multiple awakenings from sleep, extremely low position of soft palate Mallampati 4. Obstructive sleep apnea hypopnea syndrome. 2. Coronary artery disease, status post CABG and stents insertions. 3. COPD. 4. Hypertension. 5 hypothyroidism. 6 . Hyperlipidemia. 7. Depression. 8. History of TIA. 9 . Acid reflux. 10. Status post thyroid nodule removed. PLAN: 1. Polysomnography for evaluation of patient's breathing during sleep. 2. CPAP/BiPAP titration if sleep study confirms obstructive sleep apnea- hypopnea syndrome. 3. Preferable position during sleep on the side. 4. No driving if patient feels any sleepiness. Patient is aware of civil and criminal liability for unsafe driving. 5. Sleep hygiene with regular sleep time for at least 7.5-8 hours. 6. Watching weight. Thank you very much for referring this patient for consultation. Sincerely, Guy Benton MD, PhD, FAASM. Diplomat of [place] [employer], Sleep Medicine Board by [place] [employer] [place] [employer] [place] Past Medical History Past Medical History: COPD, Hypertension Additional Past Medical History / Comment(s): [place] X 3. KIDNEY STONES. Last Myocardial Infarction Date:: 1997 History of Any Multi-Drug Resistant Organisms: None Reported Past Surgical History: Cholecystectomy, Coronary Bypass/CABG, Heart Tyesha terization, Heart Catheterization With Stent, Hysterectomy Additional Past Surgical History / Comment(s): COLONOSCOPY. EGD. 2 cardiac stents placed 02/26/18. Past Anesthesia/Blood Transfusion Reactions: No Reported Reaction Date of Last Stent Placement:: 02/26/18 Past Psychological History: Anxiety, Depression Smoking Status: Current every day smoker Past Alcohol Use History: None Reported Past Drug Use History: None Reported - Past Family History Mother Family Medical History: Deep Vein Thrombosis (DVT), Myocardial Infarction ([place]) Father Family Medical History: Cancer, Myocardial Infarction ([place]) Medications and Allergies Home Medications Medication Instructions Recorded Confirmed Type Levothyroxine Sodium [Synthroid] 125 mcg PO DAILY 12/16/17 01/11/23 History Albuterol Inhaler [Ventolin Hfa 1 - 2 puff INHALATION RT-Q6H PRN 02/26/18 01/11/23 History Inhaler] Atorvastatin [Lipitor] 80 mg PO HS #30 tab 03/01/18 01/11/23 Rx Budesonide/Glycopyr/Formoterol 2 puff INHALATION RT-BID 11/27/22 01/11/23 History [Breztri Aerosphere Inhaler] FLUoxetine HCL [PROzac] 40 mg PO DAILY 11/27/22 01/11/23 History Ipratropium-Albuterol Nebulize 3 ml INHALATION RT-QID PRN 11/27/22 01/11/23 History [Duoneb 0.5 mg-3 mg/3 ml Soln] Magnesium Oxide [Magnesium] 500 mg PO HS 11/27/22 01/11/23 History Multivitamins, Thera [Multivitamin 1 tab PO DAILY 11/27/22 01/11/23 History (formulary)] Nitroglycerin Sl Tabs [Nitrostat] 0.4 mg SL Q5M PRN 01/05/23 01/11/23 History Aspirin EC [Ecotrin Low Dose] 81 mg PO DAILY #30 tab 01/08/23 01/11/23 Rx Ticagrelor [Brilinta] 90 mg PO BID #60 tab 01/08/23 01/11/23 Rx Midodrine [ProAmatine] 5 mg PO TID #180 tablet 01/13/23 Rx Allergies Allergy/AdvReac Type Severity Reaction Status Date / Time No Known Allergies Allergy Verified 01/11/23 07:00 Sleep Note - Sleep Note Sleep Note: Temperature: Pulse Rate: Respiratory Rate: Blood Pressure: SpO2: Height: Weight: BMI: Neck Circumference:
== END ==
LOC: 3 N SLEEP 14:11
PROVIDERS: ATTEND Internal Medicine
DX: G47.33 Obstructive sleep apnea (adult) (pediatric) (principal); J44.9 Chronic obstructive pulmonary disease, unspecified; I25.10 Atherosclerotic heart disease of native coronary artery without angina pectoris; I10 Essential (primary) hypertension; E03.9 Hypothyroidism, unspecified; F32.A Depression, unspecified; E78.5 Hyperlipidemia, unspecified; K21.9 Gastro-esophageal reflux disease without esophagitis; Z86.73 Personal history of transient ischemic attack (TIA), and cerebral infarction without residual deficits; Z98.890 Other specified postprocedural states; Z95.5 Presence of coronary angioplasty implant and graft; Z99.89 Dependence on other enabling machines and devices; Z79.890 Hormone replacement therapy; Z79.51 Long term (current) use of inhaled steroids; Z87.891 Personal history of nicotine dependence
CPT/HCPCS: 99211

== ENCOUNTER → 2023-10-13 | Outpatient (CLI) | payer MEDICARE ==
--- NOTE | 2023-10-13 14:13 | P.PN ---
Subjective DATE: 10/13/2023 FOLLOW UP VISIT. Patient returned to sleep center for follow-up visit to discuss results of the polysomnogram and following plan. I discuss results of sleep study with patient in details. Sleep study showed mild obstructive sleep apnea-hypopnea syndrome with apnea-hypopnea index 6.4 and extremely severe periodic limb movements 108.4 times per hour with 6.9 micro-arousals per hour. According to patient she sleeps well during the night but doesn't feel refreshed in the morning. . [place] sleepiness scale is slightly increased to 11. MEDICATIONS:1. Prozac 2. Synthroid 3. Metoprolol 4. Aspirin During physical exam: GENERAL: A pleasant patient without any distress. VITAL SIGNS: BP 132/83, HR 95, RR 16 , weight 139.0, temperature 98.2, oxygen saturation at room air 94% . HEENT: PERRLA, EOMI. NECK: Supple. No JVD. LUNGS: Clear to percussion and to auscultation. Good air exchange. No wheezing or rhonchi. HEART: S1, S2 regular. ABDOMEN: Soft and nontender. EXTREMITIES: No clubbing or cyanosis. 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 No focal deficit. Impressions: 1. Mild obstructive sleep apnea hypopnea syndrome, apnea-hypopnea index 6.4, patient has tiredness and sleepiness in the morning, after awakening. 2. Severe periodic limb movements 108.4 per hour with 6.9 micro-arousals per hour. 3. Coronary artery disease, status post CABG and stents insertions. 4. COPD. 5. Hypertension. 6. Hypothyroidism. 7. Hyperlipidemia. 8. History of depression. 9. History of TIA. 10 acid reflux 11. Status post thyroid nodule removed Plan: 1. Patient will be started on treatment with CPAP and should use equipment every night for the whole night. 2. Patient will be started on treatment with Mirapex 0.125 mg 1-2 tablets at bedtime. 3. Sleep hygiene with regular time in bed for at least 8 hours. 4. Precautions related to driving. No driving if feel any sleepiness. Patient is aware about civil and criminal liability for unsafe driving, promised to follow recommendations. 5. Follow up visit in 1-3 months after patient will be started on treatment with CPAP to evaluate clinical response on treatment, compliance with treatment and make an medicine adjustments related to mask fitting pressure and humidification. 6. Please check iron profile and ferritin level, low level of iron may increase risk for periodic limb movements. 7. SSRIs may increase risk for periodic limb movements.. Thank you very much for allowing me to participate in the management of your patient. Guy Benton MD, PhD, FAASM. Diplomat of [place] [employer], Sleep Medicine Board by [place] [employer] [facility] [place]
== END ==
LOC: 3 N SLEEP 13:33
PROVIDERS: ATTEND Internal Medicine
DX: G47.33 Obstructive sleep apnea (adult) (pediatric) (principal); G47.61 Periodic limb movement disorder; I25.10 Atherosclerotic heart disease of native coronary artery without angina pectoris; J44.9 Chronic obstructive pulmonary disease, unspecified; I10 Essential (primary) hypertension; E03.9 Hypothyroidism, unspecified; E78.5 Hyperlipidemia, unspecified; F32.A Depression, unspecified; K21.9 Gastro-esophageal reflux disease without esophagitis; Z86.73 Personal history of transient ischemic attack (TIA), and cerebral infarction without residual deficits; Z95.1 Presence of aortocoronary bypass graft; Z79.82 Long term (current) use of aspirin; Z79.51 Long term (current) use of inhaled steroids; Z87.891 Personal history of nicotine dependence; Z98.890 Other specified postprocedural states
CPT/HCPCS: 99212

== ENCOUNTER 2023-11-10 13:20 | Observation (INO) | payer MEDICARE ==
[2023-11-10] MEDS ORDERED: NITROGLYCERIN OINT 1 INCH/GM PACKET TOPICAL STA (13:27)
--- NOTE | 2023-11-10 13:29 | ED ---
General Adult HPI - General Stated complaint: Chest Pain Time Seen by Provider: 11/10/23 13:20 Source: patient, RN notes reviewed, old records reviewed - History of Present Illness Initial comments: This is a 72-year-old female presents emergency Department complaining of chest pain on and off for the last 4 days. Patient states it felt like the same thing she's had when she's had previous heart attacks. Patient states she's had multiple stents and bypass surgery. Patient states she does have a history of high blood pressure and was a smoker up until one year ago. Patient states when she called EMS she started having pain radiating into her neck she was mildly short of breath and felt very hot. Patient states every time they gave her nitroglycerin the pain went away but then it returned. Patient states the last time they gave her nitroglycerin the pain went away and it still is gone. Patient denies any recent fever chills or cough per patient denies any radiation to the arm. Patient states states she's had no abdominal pain no nausea vomiting diarrhea - Related Data Home Medications Medication Instructions Recorded Confirmed Levothyroxine Sodium [Synthroid] 125 mcg PO DAILY 12/16/17 11/10/23 Albuterol Inhaler [Ventolin Hfa 1 - 2 puff INHALATION RT-Q6H PRN 02/26/18 11/10/23 Inhaler] FLUoxetine HCL [PROzac] 40 mg PO DAILY 11/27/22 11/10/23 Ipratropium-Albuterol Nebulize 3 ml INHALATION RT-QID PRN 11/27/22 11/10/23 [Duoneb 0.5 mg-3 mg/3 ml Soln] Metoprolol Tartrate [Lopressor] 12.5 mg PO BID 11/10/23 11/10/23 Previous Rx's Medication Instructions Recorded Atorvastatin [Lipitor] 80 mg PO HS #30 tab 03/01/18 Aspirin EC [Ecotrin Low Dose] 81 mg PO DAILY #30 tab 01/08/23 Ticagrelor [Brilinta] 90 mg PO BID #60 tab 01/08/23 Allergies Allergy/AdvReac Type Severity Reaction Status Date / Time No Known Allergies Allergy Verified 11/10/23 15:47 Review of Systems ROS Statement: Those systems with pertinent positive or pertinent negative responses have been documented in the HPI. ROS Other: All systems not noted in ROS Statement are negative. Past Medical History Past Medical History: COPD, Hypertension Additional Past Medical History / Comment(s): [place] X 3. KIDNEY STONES. Last Myocardial Infarction Date:: 1997 History of Any Multi-Drug Resistant Organisms: None Reported Past Surgical History: Cholecystectomy, Coronary Bypass/CABG, Heart Catheterization, Heart Catheterization With Stent, Hysterectomy Additional Past Surgical History / Comment(s): COLONOSCOPY. EGD. 2 cardiac stents placed 02/26/18. Past Anesthesia/Blood Transfusion Reactions: No Reported Reaction Date of Last Stent Placement:: 02/26/18 Past Psychological History: Anxiety, Depression Smoking Status: Current every day smoker Past Alcohol Use History: None Reported Past Drug Use History: None Reported - Past Family History Mother Family Medical History: Deep Vein Thrombosis (DVT), Myocardial Infarction ([place]) Father Family Medical History: Cancer, Myocardial Infarction ([place]) General Exam - General Exam Comments Initial Comments: GENERAL: Patient is well-developed and well-nourished. Patient is nontoxic and well- hydrated and is mild distress. ENT: Neck is soft and supple. No significant lymphadenopathy is noted. Oropharynx is clear. Moist mucous membranes. Neck has full range of motion without eliciting any pain. EYES: The sclera were anicteric and conjunctiva were pink and moist. Extraocular movements were intact and pupils were equal round and reactive to light. Eyelids were unremarkable. PULMONARY: Unlabored respirations. Good breath sounds bilaterally. No audible rales rhonchi or wheezing was noted. CARDIOVASCULAR: There is a regular rate and rhythm without any murmurs gallops or rubs. ABDOMEN: Soft and nontender with normal bowel sounds. SKIN: Skin is clear with no lesions or rashes and otherwise unremarkable. NEUROLOGIC: Patient is alert and oriented x3. Cranial nerves II through XII are grossly intact. Motor and sensory are also intact. Normal speech, volume and content. Symmetrical smile. MUSCULOSKELETAL: Normal extremities with adequate strength and full range of motion. No lower extremity swelling or edema. No calf tenderness. LYMPHATICS: No significant lymphadenopathy is noted PSYCHIATRIC: Normal psychiatric evaluation. Course Vital Signs 11/10/23 11/10/23 13:25 16:28 Temperature 98.5 F Pulse Rate 94 82 Respiratory 18 16 Rate Blood Pressure 108/70 157/97 O2 Sat by Pulse 93 L 97 Oximetry Medical Decision Making - Medical Decision Making EKG as interpreted by myself. EKG shows a sinus rhythm at a rate of 89 bpm QRS is 76 QT interval 361 QTC is 408. Was pt. sent in by a medical professional or institution (, [facility], [employer] ARCHITECT, urgent care, hospital, or intermediate...) When possible be specific @ -No Did you speak to anyone other than the patient for history (EMS, parent, family, police, friend...)? What history was obtained from this source @ -No Did you review nursing and triage notes (agree or disagree)? Why? @ -I reviewed and agree with nursing and triage notes Were old charts reviewed (outside hosp., previous admission, EMS record, old EKG, old radiological studies, urgent care reports/EKG's, intermediate records)? Report findings @ -I reviewed prior charts in prior lab work on the patient Differential Diagnosis (chest pain, altered mental status, abdominal pain women, abdominal pain men, vaginal bleeding, weakness, fever, dyspnea, syncope, headache, dizziness, GI bleed, back pain, seizure, CVA, palpatations, mental health, musculoskeletal)? @ -Differential Chest Pain: Stable Angina, Unstable Angina, STEMI, NSTEMI Aortic Dissection, Pneumothorax, Musculoskeletal, Esophageal Spasm GERD, Cholecystitis, Pancreatitis, Zoster, this is not meant to be an all-inclusive list. EKG interpreted by me (3pts min.). @ -As above X-rays interpreted by me (1pt min.). @ -Chest x-ray shows no acute abnormality CT interpreted by me (1pt min.). @ -None done U/S interpreted by me (1pt. min.). @ -None done What testing was considered but not performed or refused? (CT, X-rays, U/S, labs)? Why? @ -None What meds were considered but not given or refused? Why? @ -None Did you discuss the management of the patient with other professionals (professionals i.e. SHELIA Castle, [employer] ARCHITECT, lab, RT, psych nurse, director social service, drum builder, teacher, development officer, case specialist)? Give summary @ -I spoke with Dr. Conte he agreed to admit the patient admitted the patient wrote admitting orders Was smoking cessation discussed for >3mins.? @ -No Was critical care preformed (if so, how long)? @ -No Were there social determinants of health that impacted care today? How? (Homelessness, low income, unemployed, alcoholism, drug addiction, transportation, low edu. Level, literacy, decrease access to med. care, half-way, rehab)? @ -No Was there de-escalation of care discussed even if they declined (Discuss DNR or withdrawal of care, Hospice)? DNR status @ -No What co-morbidities impacted this encounter? (DM, HTN, Smoking, COPD, CAD, C ancer, CVA, ARF, Chemo, Hep., AIDS, mental health diagnosis, sleep apnea, morbid obesity)? @ -None Was patient admitted / discharged? Hospital course, mention meds given and route, prescriptions, significant lab abnormalities, going to OR and other pertinent info. @ -Patient remained chest pain free throughout her ED course. Patient's lab work was negative. Patient's x-ray was negative. I spoke with Dr. Palumbo he agreed to admit the patient I admitted the patient I wrote admitting psych consult to cardiology Undiagnosed new problem with uncertain prognosis? @ -No Drug Therapy requiring intensive monitoring for toxicity (Heparin, Nitro, Insulin, Cardizem)? @ -No Were any procedures done? @ -No Diagnosis/symptom? @ -Chest pain Acute, or Chronic, or Acute on Chronic? @ -Acute Uncomplicated (without systemic symptoms) or Complicated (systemic symptoms)? @ -Complicated Side effects of treatment? @ -No Exacerbation, Progression, or Severe Exacerbation? @ -No Poses a threat to life or bodily function? How? (Chest pain, [place], [place], pneumonia, PE, COPD, DKA, ARF, appy, cholecystitis, CVA, Diverticulitis, Homicidal, Suicidal, threat to staff... and all critical care pts) @ -Yes this could lead to an [place] and end organ dysfunction - Lab Data Result diagrams: 11/10/23 13:43 11/10/23 13:43 Lab Results 11/10/23 11/10/23 11/10/23 Range/Units 13:43 13:43 13:43 WBC 17.4 H (3.8-10.6) k/uL RBC 4.35 (3.80-5.40) m/uL Hgb 12.9 (11.4-16.0) gm/dL Hct 40.2 (34.0-46.0) % MCV 92.3 (80.0-100.0) fL MCH 29.7 (25.0-35.0) pg MCHC 32.2 (31.0-37.0) g/dL RDW 14.3 (11.5-15.5) % Plt Count 462 H (150-450) k/uL MPV 7.2 Neutrophils % 66 % Lymphocytes % 22 % Monocytes % 6 % Eosinophils % 3 % Basophils % 1 % Neutrophils # 11.6 H (1.3-7.7) k/uL Lymphocytes # 3.9 (1.0-4.8) k/uL Monocytes # 1.1 H (0-1.0) k/uL Eosinophils # 0.5 (0-0.7) k/uL Basophils # 0.1 (0-0.2) k/uL PT 10.3 (10.0-12.5) sec INR 0.9 (<1.2) APTT 23.4 (22.0-30.0) sec Sodium 138 (137-145) mmol/L Potassium 3.6 (3.5-5.1) mmol/L Chloride 104 (98-107) mmol/L Carbon Dioxide 26 (22-30) mmol/L Anion Gap 8 mmol/L BUN 12 (7-17) mg/dL Creatinine 0.64 (0.52-1.04) mg/dL Est GFR (CKD-EPI)AfAm >90 (>60 ml/min/1.73 sqM) Est GFR (CKD-EPI)NonAf >90 (>60 ml/min/1.73 sqM) Glucose 103 H (74-99) mg/dL Calcium 8.6 (8.4-10.2) mg/dL Magnesium 2.0 (1.6-2.3) mg/dL Total Bilirubin 0.6 (0.2-1.3) mg/dL AST 23 (14-36) U/L ALT 21 (4-34) U/L Alkaline Phosphatase 133 H (38-126) U/L Troponin I (0.000-0.034) ng/mL Total Protein 6.1 L (6.3-8.2) g/dL Albumin 3.5 (3.5-5.0) g/dL 11/10/23 Range/Units 13:43 WBC (3.8-10.6) k/uL RBC (3.80-5.40) m/uL Hgb (11.4-16.0) gm/dL Hct (34.0-46.0) % MCV (80.0-100.0) fL MCH (25.0-35.0) pg MCHC (31.0-37.0) g/dL RDW (11.5-15.5) % Plt Count (150-450) k/uL MPV Neutrophils % % Lymphocytes % % Monocytes % % Eosinophils % % Basophils % % Neutrophils # (1.3-7.7) k/uL Lymphocytes # (1.0-4.8) k/uL Monocytes # (0-1.0) k/uL Eosinophils # (0-0.7) k/uL Basophils # (0-0.2) k/uL PT (10.0-12.5) sec INR (<1.2) APTT (22.0-30.0) sec Sodium (137-145) mmol/L Potassium (3.5-5.1) mmol/L Chloride (98-107) mmol/L Carbon Dioxide (22-30) mmol/L Anion Gap mmol/L BUN (7-17) mg/dL Creatinine (0.52-1.04) mg/dL Est GFR (CKD-EPI)AfAm (>60 ml/min/1.73 sqM) Est GFR (CKD-EPI)NonAf (>60 ml/min/1.73 sqM) Glucose (74-99) mg/dL Calcium (8.4-10.2) mg/dL Magnesium (1.6-2.3) mg/dL Total Bilirubin (0.2-1.3) mg/dL AST (14-36) U/L ALT (4-34) U/L Alkaline Phosphatase (38-126) U/L Troponin I <0.012 (0.000-0.034) ng/mL Total Protein (6.3-8.2) g/dL Albumin (3.5-5.0) g/dL Disposition Clinical Impression: Chest pain Disposition: ADMITTED IP TO THIS [facility] Referrals: Lj Conte MD [Primary Care Provider] - 1-2 days Time of Disposition: 17:56
[2023-11-10 14:07] LABS: Basophils # (A) 0.1 k/uL (0-0.2); Basophils % (A) 1 %; Eosinophils # (A) 0.5 k/uL (0-0.7); Eosinophils % (A) 3 %; HCT 40.2 % (34.0-46.0); HGB 12.9 gm/dL (11.4-16.0); Lymphocytes # (A) 3.9 k/uL (1.0-4.8); Lymphocytes % (A) 22 %; MCH 29.7 pg (25.0-35.0); MCHC 32.2 g/dL (31.0-37.0); MCV 92.3 fL (80.0-100.0); Mean Platelet Volume 7.2; Monocytes # (A) 1.1 k/uL (0-1.0); Monocytes % (A) 6 %; Neutrophils # (A) 11.6 k/uL (1.3-7.7); Neutrophils % (A) 66 %; Platelet Count 462 k/uL (150-450); RBC 4.35 m/uL (3.80-5.40); RDW 14.3 % (11.5-15.5); WBC 17.4 k/uL (3.8-10.6)
[2023-11-10 14:18] LABS: ALT 21 U/L (4-34); AST 23 U/L (14-36); African American GFR (CKD) >90 (>60 ml/min/1.73 sqM); Albumin 3.5 g/dL (3.5-5.0); Alkaline Phosphatase 133 U/L (38-126); Anion Gap 8 mmol/L; Blood Urea Nitrogen 12 mg/dL (7-17); Calcium 8.6 mg/dL (8.4-10.2); Carbon Dioxide 26 mmol/L (22-30); Chloride 104 mmol/L (98-107); Glucose 103 mg/dL (74-99); Non-African American GFR(CKD) >90 (>60 ml/min/1.73 sqM); Potassium 3.6 mmol/L (3.5-5.1); Sodium 138 mmol/L (137-145); Total Bilirubin 0.6 mg/dL (0.2-1.3); Total Protein 6.1 g/dL (6.3-8.2)
[2023-11-10 14:32] LABS: INR 0.9 (<1.2); Partial Thromboplastin Time 23.4 sec (22.0-30.0); Prothrombin Time 10.3 sec (10.0-12.5)
--- NOTE | 2023-11-10 14:47 | XR ---
EXAMINATION TYPE: XR chest 2V DATE OF EXAM: 11/10/2023 COMPARISON: 01/05/2023 HISTORY: Shortness of breath TECHNIQUE: Frontal and lateral views of the chest are obtained. FINDINGS: Scattered senescent parenchymal changes noted. Hyperinflation compatible with COPD. No evidence for infiltrate. No evidence for atelectasis. Heart size is stable. Mediastinal structures are stable and grossly unremarkable. No evidence for hilar prominence. Degenerative changes dorsal spine. IMPRESSION: 1. No evidence for acute pulmonary disease.
[2023-11-10] MEDS ORDERED: NITROGLYCERIN SL TABS 0.4 MG TAB SUBLINGUAL PRN (17:57)
[2023-11-10] MEDS: NITROGLYCERIN OINT 1 INCH/GM PACKET TOPICAL SCH (19:03)
[2023-11-10] MEDS ORDERED: ATORVASTATIN 80 MG TAB PO SCH (23:00)
[2023-11-10] MEDS: TICAGRELOR 90 MG TAB PO SCH (23:22)
[2023-11-10] MEDS: METOPROLOL TARTRATE 12.5 MG TAB PO SCH (23:22)
[2023-11-11] MEDS: IPRATROPIUM-ALBUTEROL 3 ML NEB INHALATION PRN ×3 (03:21→12:29)
[2023-11-11] MEDS: NITROGLYCERIN OINT 1 INCH/GM PACKET TOPICAL SCH ×3 (05:21→12:19)
[2023-11-11] MEDS ORDERED: LEVOTHYROXINE 125 MCG TAB PO SCH (06:30)
[2023-11-11] MEDS ORDERED: REGADENOSON 0.4 MG/5 ML SYRINGE IV PRN (08:43)
[2023-11-11] MEDS ORDERED: AMINOPHYLLINE 500 MG/20 ML VIAL IV PRN (08:43)
[2023-11-11] MEDS ORDERED: CAFFEINE CITRATE 60 MG/3 ML VIAL IV PRN (08:43)
[2023-11-11] MEDS ORDERED: ASPIRIN 325 MG TAB PO SCH (09:00)
[2023-11-11] MEDS ORDERED: NON FORMULARY DRUG (Aspirin Ec 81 MG Tablet) PO SCH (09:00)
[2023-11-11] MEDS ORDERED: FLUoxetine HCL 20 MG CAP PO SCH (09:00)
[2023-11-11] MEDS: METOPROLOL TARTRATE 12.5 MG TAB PO SCH (09:15)
[2023-11-11] MEDS: TICAGRELOR 90 MG TAB PO SCH (09:15)
[2023-11-11 09:29] LABS: Chol/HDL Ratio 3.44 Ratio; LDL Cholesterol,Calculated 53.4 mg/dL (0.0-131.0)
--- NOTE | 2023-11-11 11:16 | P.CRDCN ---
History of Present Illness Consult date: 11/11/23 Consult reason: chest pain History of present illness: History of present illness: This is a 72-year-old female patient of Dr. Perkins with past medical history of coronary artery disease status post CABG with WILLSON to LAD and SVG to left circumflex and SVG to RCA and stenting of the SVG to left circumflex and SVG to RCA as well, ischemic cardiomyopathy, hypertension, dyslipidemia, history of stroke and carotid atherosclerosis status post stenting of the left internal carotid artery, history of tobacco use and dependence. We have been asked to evaluate the patient for chest pain. Patient was recently in the office with Dr. Perkins on 11/08 and at that time was not feeling well and with intermittent episodes of burning in her chest appeared to be exertional and nonexertional and somewhat similar to what she experienced before she underwent coronary revascularization. Also complaining of some shortness of breath with exertion that's been unchanged. Patient states that she is having the same type of pain but yesterday it seemed to be more intense. It is in the midsternal area with radiation to the back. It's not related to activity or food at this time. She also is complaining of increasing weakness and stating that her COPD is really bad. She states she is now quite short of breath just getting to the bathroom. EKG sinus rhythm with no acute ST changes. Chest x-ray: No acute findings. WBC 17.4, hemoglobin 12.9, platelet count 462. INR 0.9. Electrolytes and renal function normal. WBC 103. Alkaline phosphatase 133 otherwise liver function tests are normal. Magnesium 2.0. Troponin negative 3. Triglycerides 155, c holesterol 119, LDL 53, HDL 34. proCalcitonin less than 0.02. Home cardiac medications: Aspirin 81 mg daily, atorvastatin 80 mg at bedtime, Lopressor 12.5 mg twice daily, Proventil 90 mg twice daily, also on levothyroxine 125 g daily. Echocardiogram performed 10/21/2023 revealed EF of 55% with mild concentric left ventricle hypertrophy. Trace aortic regurgitation. Moderate mitral regurgitation. Mild tricuspid regurgitation. Normal [place] the artery systolic pressure. Review Of Systems: At the time of my exam: CONSTITUTIONAL: Denies fever or chills. CARDIOVASCULAR: Denies chest pain, Denies shortness of breath, no orthopnea, PND or palpitations. RESPIRATORY: Denies cough. GASTROINTESTINAL: Denies abdominal pain, diarrhea, constipation, nausea or vomiting. MUSCULOSKELETAL: Denies myalgias. NEUROLOGIC: Denies numbness, tingling or weakness. ENDOCRINE: Denies fatigue, weight change, polydipsia or polyurina. GENITOURINARY: Denies burning, hematuria or urgency with micturation. HEMATOLOGIC: Denies history of anemia or bleeding. Physical examination: Gen: This is a this is a 72-year-old female resting in bed and appears to be comfortable and in no acute distress. VS: reviewed HEENT: Head is atraumatic, normocephalic. Pupils equal, round. Sclerae is anicteric. NECK: Supple. No JVD. LUNGS: Clear to auscultation. No wheezes or rhonchi. No intercostal retractions. HEART: Regular rate and rhythm. Systolic murmur at the right and left upper sternal border. ABDOMEN: Soft No tenderness. EXTREMITIES: No pedal edema. No calf tenderness. NEUROLOGICAL: Patient is awake, alert and oriented x3. Assessment: Atypical chest pain, acute coronary syndrome ruled out Leukocytosis History of significant coronary artery disease with history of CABG and stenting Ischemic cardiomyopathy Hypertension Dyslipidemia History of stroke Carotid atherosclerosis status post stenting of the left internal carotid artery History of tobacco use and dependence Plan: Resume patient's home cardiac medications Lexiscan stress test today Plan for nebulizer treatment just prior to Lexiscan If stress test is unremarkable, patient is cleared for discharge and may follow- up in the office with Dr. Perkins in 1-2 weeks. If stress test is positive, we will discuss possible cardiac catheterization with Dr. Perkins. Further recommendations to follow based upon clinical course Thank you kindly for this consultation. Nurse practitioner note has been reviewed, I agree with documented findings and plan of care. Patient was seen and examined. Past Medical History Past Medical History: Atrial Fibrillation, COPD, CVA/TIA, Hypertension, Myocardial Infarction ([place]), Thyroid Disorder Additional Past Medical History / Comment(s): [place] X 3. KIDNEY STONES.bilateral carotid stenosis with left carotid stent 01/11/2023 Last Myocardial Infarction Date:: 12/2022 History of Any Multi-Drug Resistant Organisms: None Reported Past Surgical History: Cholecystectomy, Coronary Bypass/CABG, Heart Catheterization, Heart Catheterization With Stent, Hysterectomy Additional Past Surgical History / Comment(s): COLONOSCOPY. EGD. 2 cardiac stents placed 02/26/18. partial thyroidectomy Past Anesthesia/Blood Transfusion Reactions: No Reported Reaction Date of Last Stent Placement:: 01/11/2023 Past Psychological History: Anxiety, Depression Smoking Status: Former smoker Past Alcohol Use History: None Reported Additional Past Alcohol Use History / Comment(s): states she quit smoking one year ago 11/2022 Past Drug Use History: None Reported - Past Family History Mother Family Medical History: Deep Vein Thrombosis (DVT), Myocardial Infarction ([place]) Father Family Medical History: Cancer, Myocardial Infarction ([place]) Medications and Allergies Home Medications Medication Instructions Recorded Confirmed Type Levothyroxine Sodium [Synthroid] 125 mcg PO DAILY 12/16/17 11/10/23 History Albuterol Inhaler [Ventolin Hfa 1 - 2 puff INHALATION RT-Q6H PRN 02/26/18 11/10/23 History Inhaler] Atorvastatin [Lipitor] 80 mg PO HS #30 tab 03/01/18 11/10/23 Rx FLUoxetine HCL [PROzac] 40 mg PO DAILY 11/27/22 11/10/23 History Ipratropium-Albuterol Nebulize 3 ml INHALATION RT-QID PRN 11/27/22 11/10/23 History [Duoneb 0.5 mg-3 mg/3 ml Soln] Aspirin EC [Ecotrin Low Dose] 81 mg PO DAILY #30 tab 01/08/23 11/10/23 Rx Ticagrelor [Brilinta] 90 mg PO BID #60 tab 01/08/23 11/10/23 Rx Metoprolol Tartrate [Lopressor] 12.5 mg PO BID 11/10/23 11/10/23 History Allergies Allergy/AdvReac Type Severity Reaction Status Date / Time No Known Allergies Allergy Verified 11/10/23 15:47 Physical Exam Vitals: Vital Signs Temp Pulse Pulse Resp BP BP BP 11/11/23 03:33 76 11/11/23 03:22 76 11/11/23 02:49 98.0 F 85 16 138/81 11/10/23 20:58 98.3 F 91 16 106/67 11/10/23 20:31 92 16 119/62 11/10/23 19:00 93 16 143/83 11/10/23 16:28 82 16 157/97 11/10/23 13:25 98.5 F 94 18 108/70 Pulse Ox 11/11/23 03:33 11/11/23 03:22 11/11/23 02:49 95 11/10/23 20:58 93 L 11/10/23 20:31 95 11/10/23 19:00 95 11/10/23 16:28 97 11/10/23 13:25 93 L Intake and Output 11/10/23 11/11/23 11/11/23 22:59 06:59 14:59 Other: # Voids 1 3 Weight 63.503 kg Results 11/10/23 13:43 11/10/23 13:43 Cardiac Enzymes 11/10/23 11/10/23 11/10/23 Range/Units 13:43 13:43 18:40 AST 23 (14-36) U/L Troponin I <0.012 <0.012 (0.000-0.034) ng/mL 11/11/23 Range/Units 00:08 AST (14-36) U/L Troponin I <0.012 (0.000-0.034) ng/mL Coagulation 11/10/23 Range/Units 13:43 PT 10.3 (10.0-12.5) sec APTT 23.4 (22.0-30.0) sec CBC 11/10/23 Range/Units 13:43 WBC 17.4 H (3.8-10.6) k/uL RBC 4.35 (3.80-5.40) m/uL Hgb 12.9 (11.4-16.0) gm/dL Hct 40.2 (34.0-46.0) % Plt Count 462 H (150-450) k/uL Comprehensive Metabolic Panel 11/10/23 Range/Units 13:43 Sodium 138 (137-145) mmol/L Potassium 3.6 (3.5-5.1) mmol/L Chloride 104 (98-107) mmol/L Carbon Dioxide 26 (22-30) mmol/L BUN 12 (7-17) mg/dL Creatinine 0.64 (0.52-1.04) mg/dL Glucose 103 H (74-99) mg/dL Calcium 8.6 (8.4-10.2) mg/dL AST 23 (14-36) U/L ALT 21 (4-34) U/L Alkaline Phosphatase 133 H (38-126) U/L Total Protein 6.1 L (6.3-8.2) g/dL Albumin 3.5 (3.5-5.0) g/dL Current Medications Generic Name Dose Route Start Last Admin Trade Name Freq PRN Reason Stop Dose Admin Albuterol/Ipratropium 3 ml 11/10/23 22:55 11/11/23 03:21 Ipratropium-Albuterol 3 Ml Neb INHALATION 3 ml RT-QID PRN Administration Shortness Of Breath Aspirin 325 mg 11/11/23 09:00 Aspirin 325 Mg Tab PO DAILY [facility] Atorvastatin Calcium 80 mg 11/10/23 23:00 11/10/23 23:22 Atorvastatin 80 Mg Tab PO 80 mg HS [facility] Administration Fluoxetine HCl 40 mg 11/11/23 09:00 Fluoxetine Hcl 20 Mg Cap PO DAILY [facility] Levothyroxine Sodium 125 mcg 11/11/23 06:30 11/11/23 05:52 Levothyroxine 125 Mcg Tab PO 125 mcg DAILY@0630 [facility] Administration Metoprolol Tartrate 12.5 mg 11/10/23 23:00 11/10/23 23:22 Metoprolol Tartrate 12.5 Mg Tab PO 12.5 mg BID [facility] Administration Nitroglycerin 0.4 mg 11/10/23 17:57 Nitroglycerin Sl Tabs 0.4 Mg Tab SUBLINGUAL Q5M PRN Chest Pain Nitroglycerin 1 inch 11/10/23 18:00 11/11/23 05:21 Nitroglycerin Oint 1 Inch/Gm Packet TOPICAL Not Given Q6HR [facility] Ticagrelor 90 mg 11/10/23 23:00 11/10/23 23:22 Ticagrelor 90 Mg Tab PO 90 mg BID [facility] Administration Intake and Output 11/10/23 11/11/23 11/11/23 22:59 06:59 14:59 Other: # Voids 1 3 Weight 63.503 kg 11/10/23 13:43 11/10/23 13:43
[2023-11-11] MEDS ORDERED: PANTOPRAZOLE 40 MG/10 ML VIAL IVP SCH (11:30)
--- NOTE | 2023-11-11 12:05 | CA ---
Lexiscan Nuclear Stress Test Report Name: Brenda Stewart Exam Date: 11/11/2023 10:44 Exam Location: [facility] [facility] Ht (in): 61 Wt (lb): BSA: Ordering Phys: Sera Patterson NPC Referring Phys: SERA PATTERSON,, Technologist: Rocky Licea Age: 72 Gender: F : 1950 Procedure CPT: Indications: Reflex order-Stress test ICD-10 Codes: Patient History: CP, DAVID, PALP, HTN, CVA, CHOL, FAMILY HX, [place], CATH, PTCA, CABG, COPD Medications: SEE CHART Meds past 24 hrs: Pretest Chest Pain: STRESS TEST Lexiscan Protocol Exercise Duration (min:sec): 02:[address] Depressions (mm): Angina Score: Whatley Score: Resting HR (bpm): 81 Peak HR (bpm): 118 Resting BP (mmHg): 125 / 68 Peak BP (mmHg): 145 / 85 MPHR: 149 Target HR: 127 % MPHR: 79 METS: 1.0 Total Dose: Peak Dose: Atropine: Double Product: 96534 BP Response: Stress Termination: END OF DOSAGE Stress Symptoms: HEADACHE AND NAUSEA Stress Summary: ECG ANALYSIS Resting ECG: Normal sinus rhythm, normal axis, short KS interval, heart rate 84 bpm Stress ECG: No significant ST-T wave changes that are diagnostic for ischemia by ST segment analysis. Occasional PVCs. No sustained arrhythmias CONCLUSIONS Nonischemic ECG response to Lexiscan infusion Normal clinical and hemodynamic response to Lexiscan infusion Overall normal ECG portion of Lexiscan nuclear stress test Please refer to the nuclear portion of the stress test was completed and depression of the study Dr Tarun Singh (Electronically Signed) Final Date: 11 November 2023 12:04
--- NOTE | 2023-11-11 12:22 | P.HPIM ---
History of Present Illness H&P Date: 11/11/23 Chief Complaint: Chest pain History and Physical and Discharge Summary: This is a 72-year-old female with past medical history significant for CAD,MIs status post CABG, cardiac stents, ischemic cardiomyopathy, hypertension, COPD, former nicotine dependence- [id number] 1 year ago,CVA/TIA, anxiety, depression and multiple other medical issues transported to the ER via EMS with complaints of midsternal chest pain/burning sensation radiating through to her back, lasting 2-3 minutes while at rest, accompanied by shortness of breath, wheezing and diaphoresis. States she had not consumed any food prior to the initiation of her symptoms. Denies nausea vomiting or diarrhea. Denies abdominal pain. Denies fever, chills, cough, congestion, mucus drainage or stuffy nose. Reports symptoms similar to when she had her CABG previously. Afebrile, WBC 17.4,pro-calcitonin less than 0.02. Hemoglobin 12.9, platelets 462, INR 0.9, chemistry panel unremarkable, glucose 103, alk phos 133, troponins negative times, EKG reporting sinus rhythm.Triglycerides 155, cholesterol 119, LDL 53, HDL 34. Magnesium 2. Currently reporting increased exertional shortness of breath.Chest x-ray reporting no evidence for acute pulmonary disease. Review of Systems ROS Statement: Those systems with pertinent positive or pertinent negative responses have been documented in the HPI. ROS Other: All systems not noted in ROS Statement are negative. Past Medical History Past Medical History: Atrial Fibrillation, COPD, CVA/TIA, Hypertension, Myocardial Infarction ([place]), Thyroid Disorder Additional Past Medical History / Comment(s): [place] X 3. KIDNEY STONES.bilateral carotid stenosis with left carotid stent 01/11/2023 Last Myocardial Infarction Date:: 12/2022 History of Any Multi-Drug Resistant Organisms: None Reported Past Surgical History: Cholecystectomy, Coronary Bypass/CABG, Heart Catheterization, Heart Catheterization With Stent, Hysterectomy Additional Past Surgical History / Comment(s): COLONOSCOPY. EGD. 2 cardiac stents placed 02/26/18. partial thyroidectomy Past Anesthesia/Blood Transfusion Reactions: No Reported Reaction Date of Last Stent Placement:: 01/11/2023 Past Psychological History: Anxiety, Depression Smoking Status: Former smoker Past Alcohol Use History: None Reported Additional Past Alcohol Use History / Comment(s): states she quit smoking one year ago 11/2022 Past Drug Use History: None Reported - Past Family History Mother Family Medical History: Deep Vein Thrombosis (DVT), Myocardial Infarction ([place]) Father Family Medical History: Cancer, Myocardial Infarction ([place]) Medications and Allergies Home Medications Medication Instructions Recorded Confirmed Type Levothyroxine Sodium [Synthroid] 125 mcg PO DAILY 12/16/17 11/10/23 History Albuterol Inhaler [Ventolin Hfa 1 - 2 puff INHALATION RT-Q6H PRN 02/26/18 11/10/23 History Inhaler] Atorvastatin [Lipitor] 80 mg PO HS #30 tab 03/01/18 11/10/23 Rx FLUoxetine HCL [PROzac] 40 mg PO DAILY 11/27/22 11/10/23 History Ipratropium-Albuterol Nebulize 3 ml INHALATION RT-QID PRN 11/27/22 11/10/23 History [Duoneb 0.5 mg-3 mg/3 ml Soln] Aspirin EC [Ecotrin Low Dose] 81 mg PO DAILY #30 tab 01/08/23 11/10/23 Rx Ticagrelor [Brilinta] 90 mg PO BID #60 tab 01/08/23 11/10/23 Rx Metoprolol Tartrate [Lopressor] 12.5 mg PO BID 11/10/23 11/10/23 History Budesonide/Formoterol Fumarate 2 puff INHALATION BID #10.2 gm 11/11/23 Rx [Symbicort 80-4.5 Mcg Inhaler] Pantoprazole [Protonix] 40 mg PO DAILY #30 tab 11/11/23 Rx Allergies Allergy/AdvReac Type Severity Reaction Status Date / Time No Known Allergies Allergy Verified 11/10/23 15:47 Physical Exam Vitals: Vital Signs Temp Pulse Pulse Resp BP BP BP 11/11/23 09:13 68 11/11/23 09:00 66 11/11/23 07:00 97.7 F 80 16 135/71 11/11/23 03:33 76 11/11/23 03:22 76 11/11/23 02:49 98.0 F 85 16 138/81 11/10/23 20:58 98.3 F 91 16 106/67 11/10/23 20:31 92 16 119/62 11/10/23 19:00 93 16 143/83 11/10/23 16:28 82 16 157/97 11/10/23 13:25 98.5 F 94 18 108/70 Pulse Ox FiO2 11/11/23 09:13 11/11/23 09:00 96 21 11/11/23 07:00 96 11/11/23 03:33 11/11/23 03:22 11/11/23 02:49 95 11/10/23 20:58 93 L 11/10/23 20:31 95 11/10/23 19:00 95 11/10/23 16:28 97 11/10/23 13:25 93 L Intake and Output 11/10/23 11/11/23 11/11/23 22:59 06:59 14:59 Other: # Voids 1 3 Weight 63.503 kg PHYSICAL EXAM: VITAL SIGNS: [As above] GENERAL: Well-developed, well-nourished ,Sitting up in bed, no acute distress HEENT: Normocephalic, Conjunctivae normal. eyes normal. NECK: Supple, No JVD. No thyroid enlargement. No LNs CARDIOVASCULAR: S1, S2 regular. Systolic murmur RESPIRATION: Unlabored, equal air entry, expiratory wheezing bilateral ABDOMEN: Soft, nondistended, nontender . No guarding. no masses palpable. No ascites, No hepatosplenomegaly.Bowel sounds heard. LEGS: No edema. no swelling, no calf tenderness positive DP pulses. PSYCHIATRY: Alert and oriented X3, mood and affect normal. NERVOUS SYSTEM: Cranial N 2-12 grossly normal. Moves all 4 limbs. No focal deficits. Strength and sensation grossly intact. Skin: Warm and dry, no rash Results CBC & Chem 7: 11/10/23 13:43 11/10/23 13:43 Labs: Abnormal Lab Results - Last 24 Hours (Table) 11/10/23 11/10/23 11/11/23 Range/Units 13:43 13:43 06:04 WBC 17.4 H (3.8-10.6) k/uL Plt Count 462 H (150-450) k/uL Neutrophils # 11.6 H (1.3-7.7) k/uL Monocytes # 1.1 H (0-1.0) k/uL Glucose 103 H (74-99) mg/dL Alkaline Phosphatase 133 H (38-126) U/L Total Protein 6.1 L (6.3-8.2) g/dL Triglycerides 155.00 H (0.00-149.00) mg/dL HDL Cholesterol 34.60 L (40.00-60.00) mg/dL Thrombosis Risk Factor Assmnt - Choose All That Apply Any of the Below Risk Factors Present?: Yes Each Factor Represents 1 point: Abnormal pulmonary function (COPD), Obesity (BMI >25) Other Risk Factors: Yes Each Risk Factor Represents 2 Points: Age 61-74 years Other congenital or acquired thrombophilia - If yes, enter type in comment: No Thrombosis Risk Factor Assessment Total Risk Factor Score: 4 Thrombosis Risk Factor Assessment Level: Moderate Risk Assessment and Plan Assessment: Chest pain, troponin is negative 3,ACS ruled out. Stress test pending. Leukocytosis CAD, history of [place], CABG, stenting Ischemic cardiomyopathy Hypertension Hyperlipidemia Hypothyroidism COPD Prior nicotine dependence, [id number], quit 1 year ago History of CVA History of left internal carotid artery stenting Plan: Continue on current medication regime ,monitoring and symptomatic treatment. Evaluated by cardiology and patient is scheduled for a Lexiscan stress test today. Nebulized bronchodilators ordered. Discharge planning in progress pending stress test results, final DC recommendations and clearance per cardiology. Discharge Medication List Levothyroxine Sodium [Synthroid] 125 mcg PO DAILY 12/16/17 [History] Albuterol Inhaler [Ventolin Hfa Inhaler] 1 - 2 puff INHALATION RT-Q6H PRN 02/26/18 [History] Atorvastatin [Lipitor] 80 mg PO HS #30 tab 03/01/18 [Rx] FLUoxetine HCL [PROzac] 40 mg PO DAILY 11/27/22 [History] Ipratropium-Albuterol Nebulize [Duoneb 0.5 mg-3 mg/3 ml Soln] 3 ml INHALATION R T-QID PRN 11/27/22 [History] Aspirin EC [Ecotrin Low Dose] 81 mg PO DAILY #30 tab 01/08/23 [Rx] Ticagrelor [Brilinta] 90 mg PO BID #60 tab 01/08/23 [Rx] Metoprolol Tartrate [Lopressor] 12.5 mg PO BID 11/10/23 [History] Budesonide/Formoterol Fumarate [Symbicort 80-4.5 Mcg Inhaler] 2 puff INHALATION BID #10.2 gm 11/11/23 [Rx] Pantoprazole [Protonix] 40 mg PO DAILY #30 tab 11/11/23 [Rx] The impression and plan of care has been dictated as directed. : I performed a history and examination of this patient, discussed the same with the dictator. I agree with the dictator's note ,documented as a scribe. Any additional findings or plans will be noted.
[2023-11-11] MEDS ORDERED: SYMBICORT 80-4.5 MCG INHALER INHALATION SCH (12:27)
--- NOTE | 2023-11-11 12:35 | NM ---
EXAMINATION TYPE: NM stress lexiscan cardiolite DATE OF EXAM: 11/11/2023 COMPARISON: NONE CLINICAL INDICATION: Female, 72 years old with history of CP; TECHNIQUE: After the intravenous administration of 9.0 mCi Tc 99m Sestamibi - Cardiolite resting SPE CT images acquired 45 minutes post injection. The patient received 0.4mg Lexiscan, 25.8 mCi Tc 99m Sestamibi - Stress images obtained [address] injection FINDINGS: Review of stress and rest SPECT images demonstrates no distinct perfusion abnormality. Gated analysi s shows normal wall motion with an estimated left ventricular ejection fraction of 71 %. IMPRESSION: No scintigraphic evidence for reversible ischemia.
[2023-11-11 15:11] VITALS: BP 125/80; PULSE 97; RESP 15; TEMP 98.2
[2023-11-12] MEDS ORDERED: ASPIRIN 81 MG PO SCH (09:00)
== END 2023-11-11 15:02 | disposition home or self-care (01) ==
LOC: EC 13:20 → 6NMEDSUR 18:02
PROVIDERS: ADMIT Family Medicine; ATTEND Family Medicine
DX: R07.89 Other chest pain (principal); D72.829 Elevated white blood cell count, unspecified; I65.22 Occlusion and stenosis of left carotid artery; J44.9 Chronic obstructive pulmonary disease, unspecified; I10 Essential (primary) hypertension; F41.9 Anxiety disorder, unspecified; F32.A Depression, unspecified; I25.10 Atherosclerotic heart disease of native coronary artery without angina pectoris; E89.0 Postprocedural hypothyroidism; I48.91 Unspecified atrial fibrillation; I25.5 Ischemic cardiomyopathy; E78.5 Hyperlipidemia, unspecified; I25.2 Old myocardial infarction; Z86.73 Personal history of transient ischemic attack (TIA), and cerebral infarction without residual deficits; Z87.891 Personal history of nicotine dependence; Z95.5 Presence of coronary angioplasty implant and graft; Z79.02 Long term (current) use of antithrombotics/antiplatelets; Z79.890 Hormone replacement therapy; Z79.899 Other long term (current) drug therapy; Z79.82 Long term (current) use of aspirin; Z79.51 Long term (current) use of inhaled steroids
CPT/HCPCS: 96374; 99285; 36415; 94640 ×2; 94760; 93005; 93017; 80061; 80053; 83735; 84484 ×2; 85025; 85610; 85730; 84145; 71046; 78452; G0378 ×2; A9500; J2785; C9113